=== PATIENT | female | born 2000 | race Caucasian/White ===

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

== ENCOUNTER 2020-01-16 17:03 | Emergency (ER) | payer OTHER ==
[2020-01-16 17:21] VITALS: BP 109/73; PULSE 87; RESP 18; TEMP 98.2
[2020-01-16] MEDS ORDERED: DIPH,PERTUS(ACELL)TETVAC-LF 0.5 ML VIAL IM ONE (17:48)
[2020-01-16] MEDS ORDERED: TOPICAL SKIN ADHESIVE 1 EACH AMP TOPICAL ONE (17:48)
--- NOTE | 2020-01-16 18:10 | ED ---
General Adult HPI - General Chief complaint: Wound/Laceration Stated complaint: R Finger Lac Time Seen by Provider: 01/16/20 17:42 Source: patient, RN notes reviewed Mode of arrival: ambulatory Limitations: no limitations - History of Present Illness Initial comments: 19-year-old female presents emergency Department with chief complaint of finger laceration. Patient states that she cut her finger on a slicer. Patient states she's unsure when her last tetanus was. There is no active bleeding she states that she does not want stitches. Patient denies any decreased range of motion no paresthesias. - Related Data Home Medications Medication Instructions Recorded Confirmed Cariprazine HCl [Vraylar] 1.5 mg PO Q48H 12/09/19 12/09/19 Allergies Allergy/AdvReac Type Severity Reaction Status Date / Time No Known Allergies Allergy Verified 01/16/20 17:22 Review of Systems ROS Statement: Those systems with pertinent positive or pertinent negative responses have been documented in the HPI. ROS Other: All systems not noted in ROS Statement are negative. Past Medical History Past Medical History: No Reported History Additional Past Medical History / Comment(s): ovarian cysts History of Any Multi-Drug Resistant Organisms: None Reported Past Surgical History: No Surgical Hx Reported Past Psychological History: Anxiety, Bipolar, Depression Smoking Status: Vaper Past Alcohol Use History: Occasional Past Drug Use History: None Reported General Exam Limitations: no limitations General appearance: alert, in no apparent distress Head exam: Present: atraumatic, normocephalic, normal inspection Respiratory exam: Present: normal lung sounds bilaterally. Absent: respiratory distress, wheezes, rales, rhonchi, stridor Cardiovascular Exam: Present: regular rate, normal rhythm, normal heart sounds. Absent: systolic murmur, diastolic murmur, rubs, gallop, clicks Extremities exam: Present: other (Right hand second digit there is a 1 cm laceration no active bleeding.) Course Vital Signs 01/16/20 17:18 Temperature 98.2 F Pulse Rate 87 Respiratory 18 Rate Blood Pressure 109/73 O2 Sat by Pulse 100 Oximetry Procedures - Laceration Laceration #1 Consent Obtained: verbal consent Indication: laceration Site: hand (Right) Size (cm): 1 Description: linear Depth: simple, single layer Pre-repair: wound explored, irrigated extensively, deep structures intact Type of Sutures: other (exofin ) Patient Tolerated Procedure: well, no complications Medical Decision Making - Medical Decision Making Patient's wound was closed with Zofran. Patient refused sutures. Patient placed in a finger splint tetanus is updated. Disposition Clinical Impression: Finger laceration Disposition: HOME SELF-CARE Condition: Stable Instructions (If sedation given, give patient instructions): Laceration (ED) Additional Instructions: Please return to the Emergency Department if symptoms worsen or any other concerns. Is patient prescribed a controlled substance at d/c from ED?: No Referrals: Kelly Self DO [Primary Care Provider] - 1-2 days Time of Disposition: 18:09
== END 2020-01-16 18:31 | disposition home or self-care (01) ==
LOC: EC 17:03
DX: S61.214A Laceration without foreign body of right ring finger without damage to nail, initial encounter (principal); F41.9 Anxiety disorder, unspecified; F31.9 Bipolar disorder, unspecified; F17.290 Nicotine dependence, other tobacco product, uncomplicated; Z79.899 Other long term (current) drug therapy; Z23 Encounter for immunization; W27.4XXA Contact with kitchen utensil, initial encounter
CPT/HCPCS: 12001; 90471; 90715; 99282

== ENCOUNTER 2020-01-21 00:58 | Emergency (ER) | payer OTHER ==
[2020-01-21 01:05] VITALS: BP 105/67; PULSE 88; RESP 18; TEMP 98
[2020-01-21] MEDS ORDERED: HYDROCORTISONE 1% CREAM 30 GM TUBE TOPICAL STA (01:11)
[2020-01-21] MEDS ORDERED: predniSONE 50 MG TAB PO STA (01:11)
[2020-01-21] MEDS ORDERED: FAMOTIDINE 20 MG TAB PO STA (01:11)
--- NOTE | 2020-01-21 01:13 | ED ---
Skin/Abscess/FB HPI - General Chief complaint: Skin/Abscess/Foreign Body Stated complaint: Poss allergic reaction Time Seen by Provider: 01/21/20 01:07 Source: patient Mode of arrival: ambulatory Limitations: no limitations - History of Present Illness Initial comments: 19-year-old female patient presents to the emergency department today for evaluation of itchy bumps to the left arm. Patient states that she stayed at her friend's house last night and stepped on the couch. When she woke she had these lesions over the left forearm. The patient states that throughout the day the areas have become much more swollen. States they are itchy. Denies any pain. Denies any fever or chills. Denies any lip, tongue, or throat swelling. Denies taking any medication for her symptoms. Other than a new sleeping location she denies any other new exposures including soaps, lotions, medications, foods, detergents, or clothing. She denies any chance of . - Related Data Home Medications Medication Instructions Recorded Confirmed Cariprazine HCl [Vraylar] 1.5 mg PO Q48H 12/09/19 12/09/19 Previous Rx's Medication Instructions Recorded Famotidine [Pepcid] 20 mg PO DAILY #3 tablet 01/21/20 predniSONE 50 mg PO DAILY #3 tab 01/21/20 Allergies Allergy/AdvReac Type Severity Reaction Status Date / Time No Known Allergies Allergy Verified 01/21/20 01:05 Review of Systems ROS Statement: Those systems with pertinent positive or pertinent negative responses have been documented in the HPI. ROS Other: All systems not noted in ROS Statement are negative. Past Medical History Past Medical History: No Reported History Additional Past Medical History / Comment(s): ovarian cysts History of Any Multi-Drug Resistant Organisms: None Reported Past Surgical History: No Surgical Hx Reported Past Psychological History: Anxiety, Bipolar, Depression Smoking Status: Vaper Past Alcohol Use History: Occasional Past Drug Use History: None Reported General Exam Limitations: no limitations General appearance: alert, in no apparent distress, other (This is a well- developed, well-nourished adult female patient in no acute distress. Vital signs upon presentation are temperature 98.2F, pulse 18, respirations 18, blood pressure 105/67, pulse ox 100% on room air.) ENT exam: Present: normal exam, normal oropharynx, mucous membranes moist Respiratory exam: Present: normal lung sounds bilaterally. Absent: respiratory distress, wheezes, rales, rhonchi, stridor Cardiovascular Exam: Present: regular rate, normal rhythm, normal heart sounds. Absent: systolic murmur, diastolic murmur, rubs, gallop, clicks Extremities exam: Present: full ROM, normal capillary refill, other (There are 3 areas consisting of erythematous wheals with surrounding swelling and erythema. These lesions are in clusters of three. Lesions are non-petechial, nonvesicular. There are no mucosal lesions. These are on the left arm only.). Absent: normal inspection, tenderness, pedal edema, joint swelling, calf tender ness Neurological exam: Present: alert, oriented X3, CN II-XII intact Psychiatric exam: Present: normal affect, normal mood Skin exam: Present: warm, dry, intact, normal color. Absent: rash Course Vital Signs 01/21/20 01:02 Temperature 98 F Pulse Rate 88 Respiratory 18 Rate Blood Pressure 105/67 O2 Sat by Pulse 100 Oximetry Medical Decision Making - Medical Decision Making 19-year-old female patient presents to the emergency department today for evaluation of itchy bumps to the left arm. Physical examination did reveal clusters of erythematous wheals noted over the left upper arm, left forearm, and left hand. These are consistent with bedbug bites. We will treat with steroids and Pepcid due to the inflammatory response. She is also given hydrocortisone cream. She is instructed take Benadryl every 6 hours as needed for symptom relief. She is instructed to apply cool compresses and to follow-up with her primary care physician for recheck in 1-2 days. Return parameters were discussed in detail. She verbalizes understanding and agrees with this plan. Disposition Clinical Impression: Bed bug bite, Allergic reaction Disposition: HOME SELF-CARE Condition: Good Instructions (If sedation given, give patient instructions): Bed Bugs (ED), General Allergic Reaction (ED) Additional Instructions: Use cream to the affected areas twice daily, for no more than 1 week. Take Benadryl every 6 hours as needed. Take other medications as directed. Follow- up through primary care physician for recheck in 1-2 days. Return to the emergency department immediately for any new, worsening, or concerning symptoms. Prescriptions: Famotidine [Pepcid] 20 mg PO DAILY #3 tablet predniSONE 50 mg PO DAILY #3 tab Is patient prescribed a controlled substance at d/c from ED?: No Referrals: Kelly Self DO [Primary Care Provider] - 1-2 days Time of Disposition: 01:13
== END 2020-01-21 01:21 | disposition home or self-care (01) ==
LOC: EC 00:58
DX: T78.40XA Allergy, unspecified, initial encounter (principal); S40.862A Insect bite (nonvenomous) of left upper arm, initial encounter; F41.9 Anxiety disorder, unspecified; F31.9 Bipolar disorder, unspecified; F17.290 Nicotine dependence, other tobacco product, uncomplicated; Z79.899 Other long term (current) drug therapy; W57.XXXA Bitten or stung by nonvenomous insect and other nonvenomous arthropods, initial encounter
CPT/HCPCS: 99283; J7512

== ENCOUNTER 2020-04-12 22:58 | Emergency (ER) | payer OTHER ==
[2020-04-12 23:07] VITALS: RESP 22
[2020-04-13 00:06] LABS: Basophils # (A) 0.1 k/uL (0-0.2); Basophils % (A) 1 %; Eosinophils # (A) 0.2 k/uL (0-0.7); Eosinophils % (A) 2 %; HGB 12.9 gm/dL (11.4-16.0); Lymphocytes # (A) 2.6 k/uL (1.0-4.8); Lymphocytes % (A) 25 %; MCH 31.9 pg (25.0-35.0); MCV 91.1 fL (80.0-100.0); Mean Platelet Volume 7.4; Monocytes # (A) 0.6 k/uL (0-1.0); Monocytes % (A) 6 %; Neutrophils # (A) 6.5 k/uL (1.3-7.7); Neutrophils % (A) 64 %; Platelet Count 271 k/uL (150-450); RBC 4.06 m/uL (3.80-5.40); RDW 12.1 % (11.5-15.5); WBC 10.1 k/uL (4.0-11.0)
[2020-04-13 00:16] LABS: ALT 20 U/L (4-34); AST 20 U/L (14-36); African American GFR (CKD) >90 (>60 ml/min/1.73 sqM); Albumin 3.8 g/dL (3.5-5.0); Alkaline Phosphatase 41 U/L (38-126); Anion Gap 10 mmol/L; Blood Urea Nitrogen 15 mg/dL (7-17); Calcium 9.1 mg/dL (8.4-10.2); Carbon Dioxide 22 mmol/L (22-30); Chloride 104 mmol/L (98-107); Glucose 89 mg/dL (74-99); Non-African American GFR(CKD) >90 (>60 ml/min/1.73 sqM); Potassium 3.8 mmol/L (3.5-5.1); Sodium 136 mmol/L (137-145); Total Bilirubin 0.4 mg/dL (0.2-1.3); Total Protein 6.3 g/dL (6.3-8.2)
[2020-04-13 00:20] LABS: Amorphous Sediment,Urine Occasional /hpf; Appearance,Urine Clear (Clear); Bacteria,Urine Rare /hpf; Bilirubin,Urine Negative (Negative); Blood,Urine Moderate (Negative); Color,Urine Yellow; Glucose,Urine (UA) Negative (Negative); Ketones,Urine Negative (Negative); Leukocyte Esterase,Urine Negative (Negative); Mucus,Urine Rare /hpf; Nitrite,Urine Negative (Negative); PH, Urine 6.5 (5.0-8.0); Protein,Urine Trace (Negative); RBC,Urine 20 /hpf (0-5); Specific Gravity,Urine 1.033 (1.001-1.035); Sperm,Urine Occasional /hpf; Squamous Epithelial Cell,Urine 1 /hpf (0-4); Urobilinogen,Urine <2.0 mg/dL (<2.0); WBC,Urine 3 /hpf (0-5)
--- NOTE | 2020-04-13 00:45 | US ---
EXAM: US First Trimester , Transabdominal and Transvaginal CLINICAL HISTORY: Gravid female with pelvic pain. TECHNIQUE: Real-time transabdominal and transvaginal obstetrical ultrasound of the maternal pelvis and a first trimester with image documentation. Transvaginal imaging was used for better evaluation of the fetus and adnexa. COMPARISON: No previous study. FINDINGS: Gestation: Single viable intrauterine gestation is noted. [place]-rump length measures 2.2 cm corresponding to a gestational age of 8 weeks 6 days. Yolk sac is visualized. heart rate is 169 bpm. Placenta/amniotic fluid: 2.6 and area of subchorionic hemorrhage is noted which should be closely followed. Uterus/cervix: The uterus measures 8.1 x 6.5 x 6.5 cm. Cervix measures approximately 3.8 cm and is closed. No myometrial mass. Ovaries: Right ovary measures 2.7 x 1.5 x 1.7 cm. Left ovary measures 1.8 x 1 x 1 centers. No mass. Free fluid: No free fluid. IMPRESSION: 1. Single viable intrauterine gestation corresponding to a gestational age of 8 weeks 6 days. 2. heart rate is 169 bpm. 3. Subchorionic hemorrhage measuring 2.6 cm which should be closely followed. 4. The cervix is closed.
--- NOTE | 2020-04-13 01:00 | ED ---
General Adult HPI - General Chief complaint: Vaginal Bleeding Stated complaint: poss miscarriage Time Seen by Provider: 04/12/20 23:08 Source: patient, family Mode of arrival: ambulatory Limitations: no limitations - History of Present Illness Initial comments: 19 year-old female patient presents to the emergency department for evaluation of lower abdominal cramping and vaginal bleeding. Patient is 8 weeks 6 days , . States the bleeding started after having sexual intercourse which was approximately 20 minutes prior to arrival. She denies any injury or pain during intercourse. States she did have an ultrasound yesterday at her OBGYN's office and everything looked normal. She has not seen the physician yet. She is reporting mild suprapubic cramping. No back pain. Denies hematuria, dysuria, urinary frequency, urinary urgency. Denies fever or chills. Patient denies any recent rash, cough, shortness of breath, chest pain, numbness, tingling, dizziness, weakness, headache, visual changes, or any other complaints. - Related Data Home Medications Medication Instructions Recorded Confirmed Cariprazine HCl [Vraylar] 1.5 mg PO Q48H 12/09/19 12/09/19 Previous Rx's Medication Instructions Recorded Famotidine [Pepcid] 20 mg PO DAILY #3 tablet 01/21/20 predniSONE 50 mg PO DAILY #3 tab 01/21/20 Cephalexin [Keflex] 500 mg PO Q8H #9 cap 04/13/20 Allergies Allergy/AdvReac Type Severity Reaction Status Date / Time No Known Allergies Allergy Verified 04/12/20 23:07 Review of Systems ROS Statement: Those systems with pertinent positive or pertinent negative responses have been documented in the HPI. ROS Other: All systems not noted in ROS Statement are negative. Past Medical History Past Medical History: No Reported History Additional Past Medical History / Comment(s): ovarian cysts History of Any Multi-Drug Resistant Organisms: None Reported Past Surgical History: No Surgical Hx Reported Past Psychological History: Anxiety, Bipolar, Depression Smoking Status: Vaper Past Alcohol Use History: Occasional Past Drug Use History: None Reported General Exam Limitations: no limitations General appearance: alert, in no apparent distress, other (This is a well-developed, well-nourished adult female patient in no acute distress. Vital signs upon presentation are temperature 98.6F, pulse 103, respirations 22, blood pressure 111/69, pulse ox 100% on room air.) ENT exam: Present: normal exam, normal oropharynx, mucous membranes moist Respiratory exam: Present: normal lung sounds bilaterally. Absent: respiratory distress, wheezes, rales, rhonchi, stridor Cardiovascular Exam: Present: regular rate, normal rhythm, normal heart sounds. Absent: systolic murmur, diastolic murmur, rubs, gallop, clicks GI/Abdominal exam: Present: soft, normal bowel sounds. Absent: distended, tenderness, guarding, rebound, rigid External exam: Present: normal external exam Speculum exam: Present: vaginal bleeding (mild vaginal bleeding, light pink in color. ), other (Cervical os is closed) By manual exam: Present: normal by manual exam Neurological exam: Present: alert, oriented X3, CN II-XII intact Psychiatric exam: Present: normal affect, normal mood Skin exam: Present: warm, dry, intact, normal color. Absent: rash Course Vital Signs 04/12/20 23:02 Temperature 98.6 F Pulse Rate 103 H Respiratory 22 Rate Blood Pressure 111/69 O2 Sat by Pulse 100 Oximetry Medical Decision Making - Medical Decision Making 19-year-old female patient presents to the emergency department today for evaluation of suprapubic abdominal cramping and vaginal bleeding. Symptoms started shortly after sexual intercourse. She has 8 weeks 6 days , . Physical examination did reveal soft nontender abdomen. Pelvic examination did reveal mild bleeding, light pink in color. The cervical os is closed. Labs reviewed, hCG is pending ultrasound is obtained, shows viable intrauterine gestation corresponding to gestational age of 8 weeks 6 days with a heart rate of 169. There is a subchorionic hemorrhage measuring 2.6 cm. Cervix closed. Urine did show small amount of bacteria, Keflex was sent to her [facility]. Patient will be discharged with lab slip for repeat hCG in 2 days. She is instructed to call her UNION CONTRACT REPRESENTATIVE first thing in the morning to inform her of symptoms. She is educated regarding signs and symptoms of miscarriage as well as subchorionic hemorrhage. Return parameters were discussed in detail. She verbalizes understanding and agrees with this plan. - Lab Data Result diagrams: 04/12/20 00:00 04/12/20 00:00 Lab Results 04/12/20 04/12/20 04/12/20 Range/Units 00:00 00:00 00:00 WBC 10.1 (4.0-11.0) k/uL RBC 4.06 (3.80-5.40) m/uL Hgb 12.9 (11.4-16.0) gm/dL Hct 37.0 (34.0-46.0) % MCV 91.1 (80.0-100.0) fL MCH 31.9 (25.0-35.0) pg MCHC 35.0 (31.0-37.0) g/dL RDW 12.1 (11.5-15.5) % Plt Count 271 (150-450) k/uL MPV 7.4 Neutrophils % 64 % Lymphocytes % 25 % Monocytes % 6 % Eosinophils % 2 % Basophils % 1 % Neutrophils # 6.5 (1.3-7.7) k/uL Lymphocytes # 2.6 (1.0-4.8) k/uL Monocytes # 0.6 (0-1.0) k/uL Eosinophils # 0.2 (0-0.7) k/uL Basophils # 0.1 (0-0.2) k/uL Sodium 136 L (137-145) mmol/L Potassium 3.8 (3.5-5.1) mmol/L Chloride 104 (98-107) mmol/L Carbon Dioxide 22 (22-30) mmol/L Anion Gap 10 mmol/L BUN 15 (7-17) mg/dL Creatinine 0.54 (0.52-1.04) mg/dL Est GFR (CKD-EPI)AfAm >90 (>60 ml/min/1.73 sqM) Est GFR (CKD-EPI)NonAf >90 (>60 ml/min/1.73 sqM) Glucose 89 (74-99) mg/dL Calcium 9.1 (8.4-10.2) mg/dL Total Bilirubin 0.4 (0.2-1.3) mg/dL AST 20 (14-36) U/L ALT 20 (4-34) U/L Alkaline Phosphatase 41 (38-126) U/L Total Protein 6.3 (6.3-8.2) g/dL Albumin 3.8 (3.5-5.0) g/dL Urine Color Yellow Urine Appearance Clear (Clear) Urine pH 6.5 (5.0-8.0) Ur Specific [place] 1.033 (1.001-1.035) Urine Protein Trace H (Negative) Urine Glucose (UA) Negative (Negative) Urine Ketones Negative (Negative) Urine Blood Moderate H (Negative) Urine Nitrite Negative (Negative) Urine Bilirubin Negative (Negative) Urine Urobilinogen <2.0 (<2.0) mg/dL Ur Leukocyte Esterase Negative (Negative) Urine RBC 20 H (0-5) /hpf Urine WBC 3 (0-5) /hpf Ur Squamous Epith Cells 1 (0-4) /hpf Amorphous Sediment Occasional H (None) /hpf Urine Bacteria Rare H (None) /hpf Urine Mucus Rare H (None) /hpf Urine Sperm Occasional H (None) /hpf Blood Type Blood Type Recheck Bld Type Recheck Status 04/12/20 Range/Units 00:00 WBC (4.0-11.0) k/uL RBC (3.80-5.40) m/uL Hgb (11.4-16.0) gm/dL Hct (34.0-46.0) % MCV (80.0-100.0) fL MCH (25.0-35.0) pg MCHC (31.0-37.0) g/dL RDW (11.5-15.5) % Plt Count (150-450) k/uL MPV Neutrophils % % Lymphocytes % % Monocytes % % Eosinophils % % Basophils % % Neutrophils # (1.3-7.7) k/uL Lymphocytes # (1.0-4.8) k/uL Monocytes # (0-1.0) k/uL Eosinophils # (0-0.7) k/uL Basophils # (0-0.2) k/uL Sodium (137-145) mmol/L Potassium (3.5-5.1) mmol/L Chloride (98-107) mmol/L Carbon Dioxide (22-30) mmol/L Anion Gap mmol/L BUN (7-17) mg/dL Creatinine (0.52-1.04) mg/dL Est GFR (CKD-EPI)AfAm (>60 ml/min/1.73 sqM) Est GFR (CKD-EPI)NonAf (>60 ml/min/1.73 sqM) Glucose (74-99) mg/dL Calcium (8.4-10.2) mg/dL Total Bilirubin (0.2-1.3) mg/dL AST (14-36) U/L ALT (4-34) U/L Alkaline Phosphatase (38-126) U/L Total Protein (6.3-8.2) g/dL Albumin (3.5-5.0) g/dL Urine Color Urine Appearance (Clear) Urine pH (5.0-8.0) Ur Specific [place] (1.001-1.035) Urine Protein (Negative) Urine Glucose (UA) (Negative) Urine Ketones (Negative) Urine Blood (Negative) Urine Nitrite (Negative) Urine Bilirubin (Negative) Urine Urobilinogen (<2.0) mg/dL Ur Leukocyte Esterase (Negative) Urine RBC (0-5) /hpf Urine WBC (0-5) /hpf Ur Squamous Epith Cells (0-4) /hpf Amorphous Sediment (None) /hpf Urine Bacteria (None) /hpf Urine Mucus (None) /hpf Urine Sperm (None) /hpf Blood Type O Positive Blood Type Recheck No Previous Record Bld Type Recheck Status [facility] ONLY - Radiology Data Radiology results: report reviewed, image reviewed Ultrasound obtained. Report was reviewed in its entirety. Impression by Dr. Pritchett shows single viable intrauterine gestation corresponding to a gestational age of 8 weeks 6 days. heart rate is 169. Subchorionic hemorrhage measuring 2.6 cm which could be closely followed. Cervix is closed. Disposition Clinical Impression: Threatened miscarriage, Subchorionic hemorrhage Disposition: HOME SELF-CARE Condition: Good Instructions (If sedation given, give patient instructions): Threatened Miscarriage (ED), Subchorionic Hemorrhage (ED) Additional Instructions: Have repeat hormone level drawn in 2 days, return to the hospital to have the lab drawn. Call your UNION CONTRACT REPRESENTATIVE first thing in the morning for further instructions. Maintain pelvic rest until cleared by her UNION CONTRACT REPRESENTATIVE. Return to the emergency department for any new, worsening, or concerning symptoms. Is patient prescribed a controlled substance at d/c from ED?: No Referrals: Kelly Self DO [Primary Care Provider] - 1-2 days Constanza Ambrose DO [Doctor of Osteopathic Medicine] - 1-2 days Time of Disposition: 01:12
[2020-04-13 01:45] VITALS: BP 114/77; PULSE 81; TEMP 98.3
== END 2020-04-13 01:16 | disposition home or self-care (01) ==
LOC: EC 22:58
DX: O20.0 Threatened abortion (principal); F31.9 Bipolar disorder, unspecified; F17.290 Nicotine dependence, other tobacco product, uncomplicated; Z79.899 Other long term (current) drug therapy; Z3A.08 8 weeks gestation of pregnancy
CPT/HCPCS: 36415; 76801; 80053; 81001; 84702; 85025; 86900; 86901; 99284

== ENCOUNTER → 2020-04-15 | Outpatient (CLI) | payer OTHER | END | disposition home or self-care (01) | LOC: LABMAIN 11:53 | PROVIDERS: ATTEND Family Medicine | DX: O26.859 Spotting complicating pregnancy, unspecified trimester (principal); Z3A.00 Weeks of gestation of pregnancy not specified | CPT/HCPCS: 36415; 84702 ==

== ENCOUNTER 2020-04-16 17:01 | Emergency (ER) | payer OTHER ==
[2020-04-16 17:05] VITALS: BP 108/74; PULSE 90; RESP 17; TEMP 98.4
--- NOTE | 2020-04-16 17:24 | ED ---
Female Urogenital HPI - General Chief complaint: Vaginal Bleeding Stated complaint: 9 wks preg, spotting Time Seen by Provider: 04/16/20 17:07 Source: patient Mode of arrival: ambulatory Limitations: no limitations - History of Present Illness Initial comments: 19-year-old female currently 9 weeks presenting for recheck vaginal bleeding. Patient states she was here roughly 2-3 days ago and she states she had some light vaginal bleeding. She was told she has subchorionic hemorrhage patient states she did that she is worried about the now. She states she has had some light cramping and some bleeding after. She states today that has been mellitus. Patient denies any severe pain nausea vomiting diarrhea fevers.denies vaginal discharge denies any vaginal itching or urinary symptoms. Patient denies additional complaints Upon arrival patient appears well nontoxic in no acute distress. Last Menstrual Period: 02/13/21 - Related Data Home Medications Medication Instructions Recorded Confirmed Cariprazine HCl [Vraylar] 1.5 mg PO Q48H 12/09/19 12/09/19 Previous Rx's Medication Instructions Recorded Famotidine [Pepcid] 20 mg PO DAILY #3 tablet 01/21/20 predniSONE 50 mg PO DAILY #3 tab 01/21/20 Cephalexin [Keflex] 500 mg PO Q8H #9 cap 04/13/20 Cephalexin [Keflex] 500 mg PO Q8HR 5 Days #15 cap 04/16/20 Allergies Allergy/AdvReac Type Severity Reaction Status Date / Time No Known Allergies Allergy Verified 04/16/20 17:05 Review of Systems ROS Statement: Those systems with pertinent positive or pertinent negative responses have been documented in the HPI. ROS Other: All systems not noted in ROS Statement are negative. Past Medical History Past Medical History: No Reported History Additional Past Medical History / Comment(s): ovarian cysts History of Any Multi-Drug Resistant Organisms: None Reported Past Surgical History: No Surgical Hx Reported Past Psychological History: Anxiety, Bipolar, Depression Smoking Status: Vaper Past Alcohol Use History: Occasional Past Drug Use History: None Reported General Exam - General Exam Comments Initial Comments: General: The patient is awake and alert, in no distress, and does not appear acutely ill. Eye: Pupils are equal, round and reactive to light, extra-ocular movements are intact. No nystagmus. There is normal conjunctiva bilaterally. No signs of icterus. Ears, nose, mouth and throat: There are moist mucous membranes and no oral lesions. Neck: The neck is supple, there is no tenderness or JVD. Cardiovascular: There is a regular rate and rhythm. No murmur, rub or gallop is appreciated. Respiratory: Lungs are clear to auscultation, respirations are non-labored, breath sounds are equal. No wheezes, stridor, rales, or rhonchi. Gastrointestinal: Soft, non-distended, non-tender abdomen without masses or organomegaly noted. There is no rebound or guarding present. : os closed. scant discharge in vault, no odors, no blood, no adnexal or cervical motion tenderness Musculoskeletal: Normal ROM, no tenderness. Strength 5/5. Sensation intact. Pulses equal bilaterally 2+. Neurological: A&O x 3. CN II-XII intact, There are no obvious motor or sensory deficits. Coordination appears grossly intact. Speech is normal. Skin: Skin is warm and dry and no rashes or lesions are noted. Psychiatric: Cooperative, appropriate mood & affect, normal judgment. Limitations: no limitations Course Vital Signs 04/16/20 17:03 Temperature 98.4 F Pulse Rate 90 Respiratory 17 Rate Blood Pressure 108/74 O2 Sat by Pulse 100 Oximetry Medical Decision Making - Medical Decision Making Bedside ultrasound fetus is moving, cardiac motion is appreciated. Pt has no pain on abdominal or pelvic exam. she states she just wanted to check on baby. she states at 11 weeks she can see her OBGYN DrSaud Ambrose. No bleeding on exam. Bacteria in urine--will treat despite being asymptomatic. vaginal swabs pending. patient O+ on chart review. Pt case discussed with Dr. Alamo who is agreeable to discharge. - Lab Data Lab Results 04/16/20 04/16/20 Range/Units 17:27 17:27 Urine Color Light Yellow Urine Appearance Cloudy H (Clear) Urine pH 8.0 (5.0-8.0) Ur Specific [place] 1.023 (1.001-1.035) Urine Protein Negative (Negative) Urine Glucose (UA) Negative (Negative) Urine Ketones Negative (Negative) Urine Blood Negative (Negative) Urine Nitrite Negative (Negative) Urine Bilirubin Negative (Negative) Urine Urobilinogen <2.0 (<2.0) mg/dL Ur Leukocyte Esterase Negative (Negative) Urine WBC 2 (0-5) /hpf Ur Squamous Epith Cells 3 (0-4) /hpf Amorphous Sediment Rare H (None) /hpf Urine Bacteria Rare H (None) /hpf Urine Mucus Rare H (None) /hpf Trichomonas Ag (Rapid) Negative (Negative) Disposition Clinical Impression: 9 weeks gestation of , Vaginal discharge Disposition: HOME SELF-CARE Condition: Good Instructions (If sedation given, give patient instructions): Subchorionic Hemorrhage (ED) Additional Instructions: Please use medication as discussed. Please follow-up with OBGYN in next week. Please return to emergency room if the symptoms increase or worsen or for any other concerns. Prescriptions: Cephalexin [Keflex] 500 mg PO Q8HR 5 Days #15 cap Is patient prescribed a controlled substance at d/c from ED?: No Referrals: Kelly Self DO [Primary Care Provider] - 1-2 days Constanza Ambrose DO [Doctor of Osteopathic Medicine] - 1-2 days Time of Disposition: 17:24
[2020-04-16 17:46] LABS: Amorphous Sediment,Urine Rare /hpf; Appearance,Urine Cloudy (Clear); Bacteria,Urine Rare /hpf; Bilirubin,Urine Negative (Negative); Blood,Urine Negative (Negative); Color,Urine Light Yellow; Glucose,Urine (UA) Negative (Negative); Ketones,Urine Negative (Negative); Leukocyte Esterase,Urine Negative (Negative); Mucus,Urine Rare /hpf; Nitrite,Urine Negative (Negative); Protein,Urine Negative (Negative); Specific Gravity,Urine 1.023 (1.001-1.035); Squamous Epithelial Cell,Urine 3 /hpf (0-4); Urobilinogen,Urine <2.0 mg/dL (<2.0); WBC,Urine 2 /hpf (0-5)
[2020-04-17 14:55] LABS: C. trachomatis,PCR Negative (Neg,Equiv); Chlamydia trachomatis Source Vagina; N. gonorrhoeae,PCR Negative (Neg,Equiv); Neisseria Source Vagina
== END 2020-04-16 17:40 | disposition home or self-care (01) ==
LOC: EC 17:01
DX: O46.91 Antepartum hemorrhage, unspecified, first trimester (principal); O99.341 Other mental disorders complicating pregnancy, first trimester; F41.9 Anxiety disorder, unspecified; F31.9 Bipolar disorder, unspecified; O99.331 Smoking (tobacco) complicating pregnancy, first trimester; Z79.899 Other long term (current) drug therapy; F17.290 Nicotine dependence, other tobacco product, uncomplicated; Z3A.09 9 weeks gestation of pregnancy
CPT/HCPCS: 81001; 87070; 87491; 87591; 87808; 99284

== ENCOUNTER 2020-06-20 10:15 | Emergency (ER) | payer OTHER ==
[2020-06-20 11:37] VITALS: RESP 18
[2020-06-20 12:55] LABS: Basophils % (A) 0 %; Eosinophils # (A) 0.1 k/uL (0-0.7); Eosinophils % (A) 1 %; HCT 34.3 % (34.0-46.0); HGB 12.2 gm/dL (11.4-16.0); Lymphocytes # (A) 1.8 k/uL (1.0-4.8); Lymphocytes % (A) 19 %; MCHC 35.6 g/dL (31.0-37.0); MCV 92.6 fL (80.0-100.0); Mean Platelet Volume 8.3; Monocytes # (A) 0.4 k/uL (0-1.0); Monocytes % (A) 4 %; Neutrophils # (A) 6.8 k/uL (1.3-7.7); Neutrophils % (A) 74 %; Platelet Count 249 k/uL (150-450); RDW 12.9 % (11.5-15.5); WBC 9.2 k/uL (4.0-11.0)
--- NOTE | 2020-06-20 13:05 | ED ---
Female Urogenital HPI - General Source: patient Mode of arrival: ambulatory Limitations: no limitations - History of Present Illness Last Menstrual Period: 03/11/20 <Karolina Jain - Last Filed: 06/21/20 19:06> <Mandie Vega - Last Filed: 06/22/20 11:58> - General Chief complaint: Vaginal Bleeding Stated complaint: 18 Wks preg bleeding Time Seen by Provider: 06/20/20 11:44 - History of Present Illness Initial comments: Patient is a 19-year-old female, presenting to the emergency Department with complaints of vaginal bleeding that happened today. Patient is currently 18 weeks , , first , ENROLLMENT SPECIALIST is Dr. Ambrose. Patient states she went to the bathroom this morning and when she wiped she noticed bright red blood on the toilet paper. This is not continuous, and has not happened again. Patient is also having some mild lower abdominal cramping. She states she has started to feel the baby move this week. She denies any fevers or chills, no chest pain or shortness of breath. She states that her sister and mother both have had late-term miscarriages and is very concerned. She has no further complaints at this time. Upon arrival to the ER, her vitals are stable. (Karolina Jain) - Related Data Home Medications Medication Instructions Recorded Confirmed No Known Home Medications 06/20/20 06/20/20 Allergies Allergy/AdvReac Type Severity Reaction Status Date / Time No Known Allergies Allergy Verified 06/20/20 12:30 Review of Systems ROS Other: All systems not noted in ROS Statement are negative. <Karolina Jain - Last Filed: 06/21/20 19:06> ROS Other: All systems not noted in ROS Statement are negative. <Mandie Vega - Last Filed: 06/22/20 11:58> ROS Statement: Those systems with pertinent positive or pertinent negative responses have been documented in the HPI. Past Medical History Past Medical History: No Reported History Additional Past Medical History / Comment(s): ovarian cysts History of Any Multi-Drug Resistant Organisms: None Reported Past Surgical History: No Surgical Hx Reported Past Psychological History: Anxiety, Bipolar, Depression Smoking Status: Vaper Past Alcohol Use History: Occasional Past Drug Use History: None Reported <Karolina Jain - Last Filed: 06/21/20 19:06> General Exam Limitations: no limitations External exam: Present: normal external exam Speculum exam: Present: normal speculum exam. Absent: cervical discharge, vaginal bleeding, foreign body By manual exam: Present: normal by manual exam <Karolina Jain - Last Filed: 06/21/20 19:06> - General Exam Comments Initial Comments: GENERAL: Patient is well-developed and well-nourished. Patient is nontoxic and in no acute distress. HEAD: Atraumatic, normocephalic. EYES: Pupils equal round and reactive to light, extraocular movements intact, sclera anicteric, conjunctiva are normal. Eyelids were unremarkable. ENT: TMs normal, nares patent, oropharynx clear without exudates. Moist mucous membranes. NECK: Normal range of motion, supple without lymphadenopathy or JVD. LUNGS: Unlabored respirations. Breath sounds clear to auscultation bilaterally and equal. No wheezes rales or rhonchi. HEART: Regular rate and rhythm without murmurs, rubs or gallops. ABDOMEN: Soft, nontender, normoactive bowel sounds. No guarding, no rebound. No masses appreciated. MUSCULOSKELETAL: Normal extremities with adequate strength and normal range of motion, no pitting or edema. No clubbing or cyanosis. NEUROLOGICAL: Patient is alert and oriented x 3. Motor and sensory are also intact. Cranial nerves II through XII grossly intact. Symmetrical smile. Normal speech, normal gait. PSYCH: Normal mood, normal affect. SKIN: Warm, Dry, normal turgor, no rashes or lesions noted. (Karolina Jain) Course Vital Signs 06/20/20 06/20/20 11:32 14:16 Temperature 97.9 F 98.2 F Pulse Rate 77 79 Respiratory 18 18 Rate Blood Pressure 92/57 126/82 O2 Sat by Pulse 100 100 Oximetry Medical Decision Making - Lab Data Result diagrams: 06/20/20 12:14 06/20/20 12:14 <Karolina Jain - Last Filed: 06/21/20 19:06> - Lab Data Result diagrams: 06/20/20 12:14 06/20/20 12:14 <Mandie Vega - Last Filed: 06/22/20 11:58> - Medical Decision Making Patient is a 19-year-old female, currently 18 weeks , complaining of va ginal bleeding today as well as some mild lower abdominal cramping. This is her first , ENROLLMENT SPECIALIST is Dr. Ambrose. Her vital signs are stable. Labs are unremarkable, urine is normal. Ultrasound shows a single viable IUP measuring 18 weeks, 3 days, normal heart rate of 153. No abnormalities are seen at this time. I discussed these findings with the patient. Patient is stable for discharge. She'll follow up with her ENROLLMENT SPECIALIST. Return parameters were discussed with the patient she verbalized understanding. Case discussed with Dr. Vega. (Karolina Jain) I was available for consultation in the emergency department. The history and physical exam were done by the midlevel provider. I was consulted for this patients care. I reviewed the case with the midlevel provider and based on their presentation of the patient, I agree with the assessment, medical decision making and plan of care as documented. Chart was dictated using [employer] dictation software. Attempts were made to correct any dictation errors however some typographical errors may persist. Patient was seen during a national state of emergency due to the Covid-19 pandemic. (Mandie Vega) - Lab Data Lab Results 06/20/20 06/20/20 06/20/20 Range/Units 12:14 12:14 12:14 WBC 9.2 (4.0-11.0) k/uL RBC 3.70 L (3.80-5.40) m/uL Hgb 12.2 (11.4-16.0) gm/dL Hct 34.3 (34.0-46.0) % MCV 92.6 (80.0-100.0) fL MCH 33.0 (25.0-35.0) pg MCHC 35.6 (31.0-37.0) g/dL RDW 12.9 (11.5-15.5) % Plt Count 249 (150-450) k/uL MPV 8.3 Neutrophils % 74 % Lymphocytes % 19 % Monocytes % 4 % Eosinophils % 1 % Basophils % 0 % Neutrophils # 6.8 (1.3-7.7) k/uL Lymphocytes # 1.8 (1.0-4.8) k/uL Monocytes # 0.4 (0-1.0) k/uL Eosinophils # 0.1 (0-0.7) k/uL Basophils # 0.0 (0-0.2) k/uL Sodium 136 L (137-145) mmol/L Potassium 4.0 (3.5-5.1) mmol/L Chloride 105 (98-107) mmol/L Carbon Dioxide 24 (22-30) mmol/L Anion Gap 7 mmol/L BUN 10 (7-17) mg/dL Creatinine 0.47 L (0.52-1.04) mg/dL Est GFR (CKD-EPI)AfAm >90 (>60 ml/min/1.73 sqM) Est GFR (CKD-EPI)NonAf >90 (>60 ml/min/1.73 sqM) Glucose 79 (74-99) mg/dL Calcium 8.8 (8.4-10.2) mg/dL Total Bilirubin 0.5 (0.2-1.3) mg/dL AST 23 (14-36) U/L ALT 11 (4-34) U/L Alkaline Phosphatase 52 (38-126) U/L Total Protein 6.4 (6.3-8.2) g/dL Albumin 3.7 (3.5-5.0) g/dL Urine Color Yellow Urine Appearance Clear (Clear) Urine pH 7.0 (5.0-8.0) Ur Specific [place] 1.027 (1.001-1.035) Urine Protein Trace H (Negative) Urine Glucose (UA) Negative (Negative) Urine Ketones Negative (Negative) Urine Blood Negative (Negative) Urine Nitrite Negative (Negative) Urine Bilirubin Negative (Negative) Urine Urobilinogen 2.0 (<2.0) mg/dL Ur Leukocyte Esterase Trace H (Negative) Urine RBC <1 (0-5) /hpf Urine WBC 1 (0-5) /hpf Ur Squamous Epith Cells 3 (0-4) /hpf Urine Bacteria Rare H (None) /hpf Urine Mucus Few H (None) /hpf Blood Type Blood Type Recheck Bld Type Recheck Status 06/20/20 Range/Units 12:14 WBC (4.0-11.0) k/uL RBC (3.80-5.40) m/uL Hgb (11.4-16.0) gm/dL Hct (34.0-46.0) % MCV (80.0-100.0) fL MCH (25.0-35.0) pg MCHC (31.0-37.0) g/dL RDW (11.5-15.5) % Plt Count (150-450) k/uL MPV Neutrophils % % Lymphocytes % % Monocytes % % Eosinophils % % Basophils % % Neutrophils # (1.3-7.7) k/uL Lymphocytes # (1.0-4.8) k/uL Monocytes # (0-1.0) k/uL Eosinophils # (0-0.7) k/uL Basophils # (0-0.2) k/uL Sodium (137-145) mmol/L Potassium (3.5-5.1) mmol/L Chloride (98-107) mmol/L Carbon Dioxide (22-30) mmol/L Anion Gap mmol/L BUN (7-17) mg/dL Creatinine (0.52-1.04) mg/dL Est GFR (CKD-EPI)AfAm (>60 ml/min/1.73 sqM) Est GFR (CKD-EPI)NonAf (>60 ml/min/1.73 sqM) Glucose (74-99) mg/dL Calcium (8.4-10.2) mg/dL Total Bilirubin (0.2-1.3) mg/dL AST (14-36) U/L ALT (4-34) U/L Alkaline Phosphatase (38-126) U/L Total Protein (6.3-8.2) g/dL Albumin (3.5-5.0) g/dL Urine Color Urine Appearance (Clear) Urine pH (5.0-8.0) Ur Specific [place] (1.001-1.035) Urine Protein (Negative) Urine Glucose (UA) (Negative) Urine Ketones (Negative) Urine Blood (Negative) Urine Nitrite (Negative) Urine Bilirubin (Negative) Urine Urobilinogen (<2.0) mg/dL Ur Leukocyte Esterase (Negative) Urine RBC (0-5) /hpf Urine WBC (0-5) /hpf Ur Squamous Epith Cells (0-4) /hpf Urine Bacteria (None) /hpf Urine Mucus (None) /hpf Blood Type O Positive Blood Type Recheck O Pos Bld Type Recheck Status No Disposition Is patient prescribed a controlled substance at d/c from ED?: No Time of Disposition: 14:01 <Karolina Jain - Last Filed: 06/21/20 19:06> <Mandie Vega - Last Filed: 06/22/20 11:58> Clinical Impression: Vaginal bleeding during Disposition: HOME SELF-CARE Condition: Stable Instructions (If sedation given, give patient instructions): Dysfunctional Uterine Bleeding (ED) Additional Instructions: Please return to the Emergency Department if symptoms worsen or any other concerns. These follow-up with your ENROLLMENT SPECIALIST as discussed. Referrals: Kelly Self DO [Primary Care Provider] - 1-2 days
--- NOTE | 2020-06-20 13:09 | US ---
EXAMINATION TYPE: US OB >= 14 wk fetus DATE OF EXAM: 06/20/2020 COMPARISON: 04/13/2020 CLINICAL HISTORY: bleeding, cramping Bleeding/cramping TECHNIQUE: Transabdominal (TA) GESTATIONAL AGE / DATING Physician Established: (18 weeks/5 days) EDC: 11/16/2020 Dates by Current Scan: (18 weeks/3 days) EDC: 11/18/2020 Beta HCG (if available): Not available at this time SURVEY IUP: Single PLACENTA: Posterior PREVIA: No Previa BRITTANIE: 14.6 cm Normal CERVICAL LENGTH (transabdominal: norm > 3.0cm): 3.2 cm BIOMETRY PRESENTATION: Vertex LIE: Longitudinal BPD: 4.3 cm 18 weeks / 6 days HC: 15.9 cm 18 weeks / 5 days AC: 13.0 cm 18 weeks / 4 days FL: 2.7 cm 18 weeks / 1 days ESTIMATED WEIGHT IN GRAMS: 239.4 grams ESTIMATED WEIGHT IN LBS/OZ: 0 lbs. 8 oz. WEIGHT PERCENTAGE BASED ON ESTABLISHED DATES: 28.9% HC/AC: 1.2 Normal FL/AC: 20.5 HEART RATE: 153 bpm RHYTHM: Normal Single viable IUP measuring 18 weeks 3 day. IMPRESSION: Limited exam demonstrates viable intrauterine 18 weeks 3 days with a heart rate of 153 bpm.
[2020-06-20 13:17] LABS: ALT 11 U/L (4-34); AST 23 U/L (14-36); African American GFR (CKD) >90 (>60 ml/min/1.73 sqM); Albumin 3.7 g/dL (3.5-5.0); Alkaline Phosphatase 52 U/L (38-126); Anion Gap 7 mmol/L; Blood Urea Nitrogen 10 mg/dL (7-17); Calcium 8.8 mg/dL (8.4-10.2); Carbon Dioxide 24 mmol/L (22-30); Chloride 105 mmol/L (98-107); Glucose 79 mg/dL (74-99); Non-African American GFR(CKD) >90 (>60 ml/min/1.73 sqM); Sodium 136 mmol/L (137-145); Total Bilirubin 0.5 mg/dL (0.2-1.3); Total Protein 6.4 g/dL (6.3-8.2)
[2020-06-20 13:18] LABS: Appearance,Urine Clear (Clear); Bilirubin,Urine Negative (Negative); Blood,Urine Negative (Negative); Color,Urine Yellow; Glucose,Urine (UA) Negative (Negative); Ketones,Urine Negative (Negative); Leukocyte Esterase,Urine Trace (Negative); Nitrite,Urine Negative (Negative); Protein,Urine Trace (Negative); Specific Gravity,Urine 1.027 (1.001-1.035)
[2020-06-20 13:19] LABS: Bacteria,Urine Rare /hpf; Mucus,Urine Few /hpf; RBC,Urine <1 /hpf (0-5); Squamous Epithelial Cell,Urine 3 /hpf (0-4); WBC,Urine 1 /hpf (0-5)
[2020-06-20 14:17] VITALS: BP 126/82; PULSE 79; TEMP 98.2
== END 2020-06-20 14:17 | disposition home or self-care (01) ==
LOC: EC 10:15
DX: O46.92 Antepartum hemorrhage, unspecified, second trimester (principal); O99.342 Other mental disorders complicating pregnancy, second trimester; O99.332 Smoking (tobacco) complicating pregnancy, second trimester; F32.9 Major depressive disorder, single episode, unspecified; F41.9 Anxiety disorder, unspecified; F17.290 Nicotine dependence, other tobacco product, uncomplicated; Z3A.18 18 weeks gestation of pregnancy
CPT/HCPCS: 36415; 76805; 80053; 81001; 85025; 86900; 86901; 99284

== ENCOUNTER 2020-07-07 23:50 | Outpatient (CLI) | payer OTHER ==
[2020-07-08 01:04] VITALS: BP 115/70; PULSE 96; RESP 16; TEMP 97.1
--- NOTE | 2020-08-06 07:44 | P.MSEPDOC ---
Presenting Problems - Arrival Data Date of Arrival on Unit: 07/08/20 Time of Arrival on Unit: 23:50 Mode of Transport: Ambulatory - Complaint OB-Reason for Admission/Chief Complaint: Other Comment: Patient presents to triage for abdominal pain, nausea, and vommiting. Patient. states that pain began around 2200 and has vommited 3 times since then. Patient states. that she hasnt ate anything out of the normal today. Patient tested for covid after. recent exposure and results came back negative yesterday. Medical History - Information : 1 Para: 0 Term: 0 : 0 Abortions: Spontaneous or Elective: 0 Number of Living Children: 0 - Gestational Age Gestational Age by LEROY (wks/days): 21 Weeks and 3 Days Review of Systems - Review of Systems Constitutional: No problems Breast: No problems ENT: No problems Cardiovascular: No problems Respiratory: No problems Gastrointestinal: No problems Genitourinary: No problems Musculoskeletal: No problems Neurological: No problems Skin: No problems Vital Signs - Temperature Temperature: 97.1 F Temperature Source: Temporal Artery Scan - Pulse Right Brachial Pulse Rate: 96 Pulse Assessment Method: Automatic Cuff - Respirations Respiratory Rate: 16 Oxygen Delivery Method: Room Air - Blood Pressure Right Arm Blood Pressure: 115/70 Blood Pressure Mean: 85 Blood Pressure Source: Automatic Cuff Medical Screen Scoring (Pre) - Cervical Exam Dilation: Exam Deferred Effacement: Exam Deferred Membranes: Intact - Uterine Contractions Frequency: N/A Duration: N/A Intensity: N/A - Maternal Vital Signs Maternal Temperature: N/A Maternal Blood Pressure: N/A Signs of Preeclampsia: N/A Maternal Respirations: N/A - Maternal Trauma Maternal Trauma: N/A - Assessment - Baby A Baseline FHR: 150 Heart Rate - NICHD Category: Category I (Normal) = 0 Position: N/A Station: N/A - Total Score - Baby A Total Score - Baby A: 0 - Total Score - Baby B Total Score - Baby B: 0 - Total Score - Baby C Total Score - Baby C: 0 - Level of Risk - Baby A Level of Risk - Baby A: Low (0-5) - Level of Risk - Baby B Level of Risk - Baby B: Low (0-5) - Level of Risk - Baby C Level of Risk - Baby C: Low (0-5) Physician Notification (Pre) - Physician Notified Physician Notified Date: 07/08/20 Physician Notified Time: 00:21 New Order Received: Yes - Notification Comment Comment: report given to Dr. Donald. Patient presents with medial abdominal pain rated at. a 4/10, nausea, and vommiting that all began at 2200 on 07/07/2020. Vitals are WNL. . Heart tones 150 bpm. No contraction per toco and abdomen is soft non-tender. No changes. in diet. Patinet negative for covid related to recent exposure. Patient to orally. hydrate, if tolerated well, discharge home. Patient to call office 07/09/2020 to follow. up with Dr. Ambrose. Disposition - Disposition OB Disposition: Physician follow up in office, Discharge to home Discharge Date: 07/08/20 Discharge Time: 00:44 I agree with the RN Medical Screening Exam: Yes Case reviewed; plan agreed upon as documented in EMR&OBIX.: Yes Comments: Patient is neither seen nor examined by me Diagnosis: LATE VOMITING OF
== END 2020-07-08 00:44 ==
LOC: FBPOP 23:50
PROVIDERS: ATTEND Obstetrics & Gynecology
DX: O21.2 Late vomiting of pregnancy (principal); Z3A.21 21 weeks gestation of pregnancy
CPT/HCPCS: 99213

== ENCOUNTER 2020-07-29 19:03 | Outpatient (CLI) | payer OTHER ==
[2020-07-29 21:00] VITALS: BP 108/74; PULSE 104; RESP 18; TEMP 98.4
--- NOTE | 2020-08-06 07:49 | P.MSEPDOC ---
Presenting Problems - Arrival Data Date of Arrival on Unit: 07/29/20 Time of Arrival on Unit: 19:03 Mode of Transport: Ambulatory - Complaint OB-Reason for Admission/Chief Complaint: Possible Onset of Labor Comment: ney linda and cramping intermittently x3days Medical History - Information : 1 Para: 0 Term: 0 : 0 Abortions: Spontaneous or Elective: 0 Number of Living Children: 0 - Gestational Age Gestational Age by LEROY (wks/days): 24 Weeks and 2 Days Review of Systems - Review of Systems Constitutional: No problems Breast: No problems ENT: No problems Cardiovascular: No problems Respiratory: No problems Gastrointestinal: No problems Genitourinary: No problems Musculoskeletal: No problems Neurological: No problems Skin: No problems Vital Signs - Temperature Temperature: 98.4 F - Pulse Pulse Oximetery Pulse Rate: 104 Pulse Assessment Method: Pulse Oximetry - Respirations Respiratory Rate: 18 Oxygen Delivery Method: Room Air O2 Sat by Pulse Oximetry: 99 - Blood Pressure Right Arm Blood Pressure: 108/74 Blood Pressure Mean: 85 Blood Pressure Source: Automatic Cuff Medical Screen Scoring (Pre) - Cervical Exam Dilation: 0 cm = 0 Effacement: Exam Deferred Membranes: Intact - Uterine Contractions Frequency: > 5 minutes apart = 1 Duration: > 40 seconds = 2 Intensity: N/A - Maternal Vital Signs Maternal Temperature: N/A Maternal Blood Pressure: N/A Signs of Preeclampsia: N/A Maternal Respirations: N/A - Maternal Trauma Maternal Trauma: N/A - Assessment - Baby A Baseline FHR: 145 Heart Rate - NICHD Category: Category I (Normal) = 0 NST: Reactive Position: N/A Station: N/A - Total Score - Baby A Total Score - Baby A: 3 - Total Score - Baby B Total Score - Baby B: 3 - Total Score - Baby C Total Score - Baby C: 3 - Level of Risk - Baby A Level of Risk - Baby A: Low (0-5) - Level of Risk - Baby B Level of Risk - Baby B: Low (0-5) - Level of Risk - Baby C Level of Risk - Baby C: Low (0-5) Physician Notification (Pre) - Physician Notified Physician Notified Date: 07/29/20 Physician Notified Time: 19:39 New Order Received: Yes - Notification Comment Comment: Dr. Donald called, report given on maternal and status, pt complaints of. cramping and ney linda intermittently for the past 3 days. Pt has no complications. with her but has family that has had complications. Vitals WNL, FHTs 150s,. moderate variability, and accels. Pt has had 1 contraction that she did not feel in the. 20 mins she has been here. Orders to collect and send an FFN, SVE, and observe for at. least 1 hour total. Orders to discharge pt home if FFN is negative with instructions for pelvic. rest and to call the office tomorrow to get an appointment for this week. Disposition - Disposition OB Disposition: Physician follow up in office, Discharge to home Discharge Date: 07/29/20 Discharge Time: 20:40 I agree with the RN Medical Screening Exam: Yes Case reviewed; plan agreed upon as documented in EMR&OBIX.: Yes Comments: Patient was neither seen nor examined by me Diagnosis: FALSE LABOR BEFORE 37 COMPLETED WEEKS OF GEST, THIRD TRI
== END 2020-07-29 20:40 | disposition home or self-care (01) ==
LOC: FBPOP 19:03
PROVIDERS: ATTEND Obstetrics & Gynecology
DX: O47.02 False labor before 37 completed weeks of gestation, second trimester (principal); Z3A.24 24 weeks gestation of pregnancy
CPT/HCPCS: 82731; G0463; 99213

== ENCOUNTER 2020-09-20 22:34 | Outpatient (CLI) | payer OTHER ==
[2020-09-21 00:14] LABS: Appearance,Urine Cloudy (Clear); Bacteria,Urine Rare /hpf; Bilirubin,Urine Negative (Negative); Blood,Urine Negative (Negative); Color,Urine Yellow; Glucose,Urine (UA) Negative (Negative); Ketones,Urine 1+ (Negative); Leukocyte Esterase,Urine Large (Negative); Mucus,Urine Moderate /hpf; Nitrite,Urine Negative (Negative); Protein,Urine 1+ (Negative); RBC,Urine 2 /hpf (0-5); Specific Gravity,Urine 1.036 (1.001-1.035); Squamous Epithelial Cell,Urine 27 /hpf (0-4); WBC,Urine 21 /hpf (0-5)
[2020-09-21 03:16] VITALS: BP 104/65; PULSE 99; RESP 18; TEMP 98.1
--- NOTE | 2020-09-29 11:51 | P.MSEPDOC ---
Presenting Problems - Arrival Data Date of Arrival on Unit: 09/20/20 Time of Arrival on Unit: 22:34 Mode of Transport: Ambulatory - Complaint OB-Reason for Admission/Chief Complaint: Pain Comment: Pt presents to triage with c/o cramping that started last night. Pt states cramping was consistent last night and is now coming and going throughout the day today. Pt rates pain 7/10 and states pain is felt along lower abdomen Medical History - Information : 1 Para: 0 Term: 0 : 0 Abortions: Spontaneous or Elective: 0 Number of Living Children: 0 - Gestational Age Gestational Age by LEROY (wks/days): 32 Weeks and 0 Days Review of Systems - Review of Systems Constitutional: No problems Breast: No problems ENT: No problems Cardiovascular: No problems Respiratory: No problems Gastrointestinal: No problems Genitourinary: No problems Musculoskeletal: No problems Neurological: No problems Skin: No problems Vital Signs - Temperature Temperature: 98.1 F Temperature Source: Axillary - Pulse Pulse Oximetery Pulse Rate: 99 Pulse Assessment Method: Automatic Cuff - Respirations Respiratory Rate: 18 Oxygen Delivery Method: Room Air O2 Sat by Pulse Oximetry: 95 - Blood Pressure Right Arm Blood Pressure: 104/65 Blood Pressure Mean: 78 Blood Pressure Source: Automatic Cuff Medical Screen Scoring - Cervical Exam Dilation (cm): 0 Effacement (%): 40 Station: -3 Membranes: Intact - Uterine Contractions Frequency From (mins): 9 Frequency To (mins): 20 Duration From (seconds): 40 Duration To (seconds): 100 Intensity: Mild Resting: Soft to palpation - Assessment - Baby A Baseline FHR: 140 Heart Rate - NICHD Category: Category I (Normal) NST: Reactive Physician Notification - Physician Notified Physician Notified Date: 09/20/20 Physician Notified Time: 23:41 Physician: Joe Adams New Order Received: Yes - Notification Comment Comment: Dr. Adams called re: pt c/o cramping that started last night, pts report of cramping being constant last night and more intermittent throughout the day today, reactive NST, irregluar contraction pattern, positive movement, no bleeding or leaking of fluid, urine sample and FFN collected and SVE. Orders received to send urine. If urine comes back negative Dr. Adams states pt can be d/c home. Dr. Adams states FFN does not need to be sent as pt is not camron consistently and cervix is closed. Dr. Adams called and updated on urinalysis results. Dr. Adams states pt needs to increase fluids at home but can be d/c at this time Maternal Triage Index - Maternal Triage Index Presenting for scheduled procedure w/no complaint: No - Stat/Priority 1 Stat Priority 1: No - Urgent/Priority 2 Urgent Priority 2: No Provider Notified: Joe dAams Provider Notified Time: 23:41 Criteria Met for Priority 2: <34 weeks c/o, or detectable, uterine ctx - Prompt/Priority 3 Prompt Priority 3: No - Non-Urgent/Priority 4 Non-Urgent Priority 4: No - Scheduled/Requesting Priority 5 Scheduled/Requesting Priority 5: No Disposition - Disposition OB Disposition: Discharge to home Discharge Date: 09/21/20 Discharge Time: 00:35 I agree with the RN Medical Screening Exam: Yes Physician's MSE Comment: I have neither seen nor examined with the patient. Case reviewed; plan agreed upon as documented in EMR&OBIX.: Yes Diagnosis: RELATED CONDITIONS, UNSPECIFIED, THIRD TRIMESTER
== END 2020-09-21 00:35 | disposition home or self-care (01) ==
LOC: FBPOP 22:34
PROVIDERS: ATTEND Obstetrics & Gynecology
DX: O26.893 Other specified pregnancy related conditions, third trimester (principal); R10.30 Lower abdominal pain, unspecified; Z3A.32 32 weeks gestation of pregnancy
CPT/HCPCS: 59025; 81001; G0463; 99213

== ENCOUNTER 2020-10-07 21:40 | Outpatient (CLI) | payer OTHER ==
[2020-10-07] MEDS ORDERED: AMPICILLIN 2,000 MG in SODIUM CHLORIDE 0.9% 100 ML IVPB ONE (22:00)
[2020-10-07] MEDS: LACTATED RINGERS 1,000 ML IV SCH ×2 (22:08→22:35)
[2020-10-07] MEDS ORDERED: BETAMET ACET-BETAMETH SOD PHOS 6 MG/ML MDV IM SCH (22:30)
--- NOTE | 2020-10-07 22:33 | P.HPOB ---
History of Present Illness H&P Date: 10/07/20 Chief Complaint: IUP @ 34 2/7 weeks, PPROM This is a 20-year-old at 34-2/7 weeks, EDC 11/16/20 based on 8 week ultrasound, that presents to labor and delivery with complaints of rupture of membranes around 2129. Patient has been receiving routine care with myself which has been essentially uncomplicated. Patient does have a history of anxiety, bipolar depression for which she has been off all medications during this . Patient is a prior history of smoking/VB. Patient did complain of increasing urticaria around 31 weeks' workup for cholestasis was noted to be negative. Patient notes good movement, denies contractions, denies vaginal bleeding. 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 On bloodwork this patient has a blood type of O+, rubella status immune, hepatitis B surface antigen negative, RPR is nonreactive, HIV is negative Review of Systems Constitutional: Denies fatigue, Denies fever Ears, nose, mouth and throat: Denies headache Cardiovascular: Denies leg edema Respiratory: Denies dyspnea Gastrointestinal: Denies constipation, Denies diarrhea, Denies nausea, Denies vomiting Genitourinary: Reports Past Medical History Past Medical History: No Reported History Additional Past Medical History / Comment(s): ovarian cysts History of Any Multi-Drug Resistant Organisms: None Reported Past Surgical History: No Surgical Hx Reported Smoking Status: Never smoker Medications and Allergies Home Medications Medication Instructions Recorded Confirmed Type Pnv No.95/Ferrous Fum/Folic AC 1 each PO DAILY 07/29/20 10/07/20 History [ Multivitamin Tablet] Allergies Allergy/AdvReac Type Severity Reaction Status Date / Time No Known Allergies Allergy Verified 10/07/20 21:49 Exam Osteopathic Statement: *. No significant issues noted on an osteopathic structural exam other than those noted in the History and Physical/Consult. 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 heart tones returned be category 1, some irritability is appreciated. Vertex presentation is confirmed with ultrasound. Assessment and Plan (1) 34 weeks gestation of Current Visit: Yes Status: Acute Code(s): Z3A.34 - 34 WEEKS GESTATION OF SNOMED Code(s): 73660792 (2) premature rupture of membranes (PPROM) with unknown onset of labor Current Visit: Yes Status: Acute Code(s): O42.919 - PRETRM PIYUSH ROM, UNSP TIME BETW RUPT AND ONST LABR, UNSP TRI SNOMED Code(s): 20348274642460562 Plan: 20-year-old at 34 and 2, estimated date of confinement 11/16. Patient states she had a small amount of leakage around 2130. Patient noted the fluid to be clear in nature. Patient was confirmed rupture of membranes with amnisure. Patient appears comfortable and stable for transfer. [facility] is contacted regarding transfer of this patient given her gestational age. IV fluids are begun, ampicillin is given, betamethasone is administered. EMS is called, patient aware of need for transfer given gestational age.
[2020-10-07 23:10] VITALS: BP 118/71; PULSE 107; RESP 18; TEMP 97.8
== END 2020-10-07 23:04 ==
LOC: FBPOP 21:40
PROVIDERS: ATTEND Obstetrics & Gynecology Obstetrics
DX: O42.913 Preterm premature rupture of membranes, unspecified as to length of time between rupture and onset of labor, third trimester (principal); Z3A.34 34 weeks gestation of pregnancy; Z87.891 Personal history of nicotine dependence
CPT/HCPCS: 59025; 96360; 96372; 84112; G0463; J0290; J0702; 99214

== ENCOUNTER 2020-12-03 09:39 | Emergency (ER) | payer OTHER ==
[2020-12-03 10:06] VITALS: BP 102/65; PULSE 77; RESP 18; TEMP 97.8
--- NOTE | 2020-12-03 12:14 | ED ---
Headache HPI - General Chief Complaint: Headache Stated Complaint: Covid Screening Time Seen by Provider: 12/03/20 11:38 Mode of arrival: ambulatory Limitations: no limitations - History of Present Illness Initial Comments: Patient is a 20-year-old female presenting to the emergency department requesting Covid testing. She states she's had a headache for the past couple days as well as body aches. She denies having any fevers or chills, no cough or shortness of breath. Her appetite hasn't been a little low but no nausea or vomiting, no diarrhea. She states her [id number] recently tested positive for Covid and she would like to be tested. She has a almost 2-month-old daughter here is here with her now and wanted her tested as well. She has no further complaints. Her vitals are stable upon arrival. - Related Data Home Medications Medication Instructions Recorded Confirmed Pnv No.95/Ferrous Fum/Folic AC 1 each PO DAILY 07/29/20 10/07/20 [ Multivitamin Tablet] Allergies Allergy/AdvReac Type Severity Reaction Status Date / Time No Known Allergies Allergy Verified 12/03/20 10:06 Review of Systems ROS Statement: Those systems with pertinent positive or pertinent negative responses have been documented in the HPI. ROS Other: All systems not noted in ROS Statement are negative. Past Medical History Past Medical History: No Reported History Additional Past Medical History / Comment(s): ovarian cysts History of Any Multi-Drug Resistant Organisms: None Reported Past Surgical History: No Surgical Hx Reported Past Psychological History: Anxiety, Bipolar, Depression Smoking Status: Never smoker Past Alcohol Use History: None Reported Past Drug Use History: None Reported General Exam - General Exam Comments Initial Comments: GENERAL: Patient is well-developed and well-nourished. Patient is nontoxic and in no acute distress. HEAD: Atraumatic, normocephalic. EYES: Pupils equal round and reactive to light, extraocular movements intact, sclera anicteric, conjunctiva are normal. Eyelids were unremarkable. ENT: Nares patent, oropharynx clear without exudates. Moist mucous membranes. NECK: Normal range of motion, supple without lymphadenopathy or JVD. LUNGS: Unlabored respirations. Breath sounds clear to auscultation bilaterally and equal. No wheezes rales or rhonchi. HEART: Regular rate and rhythm without murmurs, rubs or gallops. ABDOMEN: Soft, nontender, normoactive bowel sounds. No guarding, no rebound. No masses appreciated. : Deferred MUSCULOSKELETAL: Normal extremities with adequate strength and normal range of motion, no pitting or edema. No clubbing or cyanosis. NEUROLOGICAL: Patient is alert and oriented x 3. SKIN: Warm, Dry, normal turgor, no rashes or lesions noted. Limitations: no limitations Course Vital Signs 12/03/20 10:01 Temperature 97.8 F Pulse Rate 77 Respiratory 18 Rate Blood Pressure 102/65 O2 Sat by Pulse 97 Oximetry Medical Decision Making - Medical Decision Making Patient is an almost 20-year-old female here requesting Covid testing. She's had some headaches, body aches. Her [id number] recently tested positive for Covid. Her vitals are stable, her exam is unremarkable. Rapid Covid is negative. I discussed the patient and her symptoms are most likely related to viral illness. Recommended Tylenol and/or Motrin for her headache. She can follow-up with her primary care. She is agreeable splenic urine is stable for discharge. Case discussed with Dr. Matson. - Lab Data Lab Results 12/03/20 Range/Units 12:18 Coronavirus (PCR) Not Detected (Not Detectd) Disposition Clinical Impression: Headache, Viral illness Disposition: HOME SELF-CARE Condition: Stable Instructions (If sedation given, give patient instructions): Viral Syndrome (ED) Additional Instructions: Please return to the Emergency Department if symptoms worsen or any other concerns. May take Tylenol or Motrin for any headaches or body aches. Please follow-up with your family doctor. Is patient prescribed a controlled substance at d/c from ED?: No Referrals: Kelly Self DO [Primary Care Provider] - 1-2 days Time of Disposition: 13:56
== END 2020-12-03 14:36 | disposition home or self-care (01) ==
LOC: EC 09:39
DX: B34.9 Viral infection, unspecified (principal); F41.9 Anxiety disorder, unspecified; F31.9 Bipolar disorder, unspecified; Z20.822 Contact with and (suspected) exposure to COVID-19
CPT/HCPCS: 87635; 99284

== ENCOUNTER 2021-09-14 17:40 | Emergency (ER) | payer OTHER ==
[2021-09-14 17:50] VITALS: RESP 18
[2021-09-14] MEDS ORDERED: SODIUM CHLORIDE 0.9% 1,000 ML IV STA (18:30)
[2021-09-14] MEDS ORDERED: KETOROLAC 15 MG/ML 1 ML VIAL IVP STA (18:30)
[2021-09-14] MEDS ORDERED: ONDANSETRON 4 MG/2 ML VIAL IVP STA (18:30)
[2021-09-14 19:17] LABS: ALT 12 U/L (4-34); AST 23 U/L (14-36); African American GFR (CKD) >90 (>60 ml/min/1.73 sqM); Alkaline Phosphatase 48 U/L (38-126); Anion Gap 4 mmol/L; Blood Urea Nitrogen 12 mg/dL (7-17); Calcium 7.3 mg/dL (8.4-10.2); Carbon Dioxide 19 mmol/L (22-30); Chloride 110 mmol/L (98-107); Glucose 74 mg/dL (74-99); Non-African American GFR(CKD) >90 (>60 ml/min/1.73 sqM); Sodium 133 mmol/L (137-145); Total Bilirubin 0.3 mg/dL (0.2-1.3); Total Protein 5.3 g/dL (6.3-8.2)
--- NOTE | 2021-09-14 19:18 | ED ---
Female Urogenital HPI - General Source: patient, family, EMS, RN notes reviewed Mode of arrival: EMS Limitations: no limitations - History of Present Illness MD Complaint: vaginal bleeding Consistency: constant <Parris Baird - Last Filed: 09/15/21 16:41> <Mandie Vega - Last Filed: 09/18/21 22:46> - General Chief complaint: Vaginal Bleeding Stated complaint: vaginal bleeding Time Seen by Provider: 09/14/21 17:49 - History of Present Illness Initial comments: This is a 20-year-old female who presents to the emergency department with vaginal bleeding. She took Mistoprolol around 1 PM today for elective . This was prescribed by [facility]. She is approximately 9 weeks along in the . She has never taken this medication before. She is going through pads every 10 minutes and started feeling very dizzy and li ghtheaded. Also reports associated nausea and pelvic cramping. Her follow-up is scheduled with [facility] next week, she usually sees Dr. Ambrose, HELP DESK INTERN, however their office does not participate in abortions or their follow up appointments. Denies any fevers, chills, sore throat, cough, dyspnea, chest pain, palpitations, vomiting, diarrhea, back pain, or headaches. (Parris Baird) - Related Data Home Medications Medication Instructions Recorded Confirmed Pnv No.95/Ferrous Fum/Folic AC 1 each PO DAILY 07/29/20 10/07/20 [ Multivitamin Tablet] Previous Rx's Medication Instructions Recorded Ondansetron Odt [Zofran Odt] 4 mg PO Q8HR PRN #15 tab 09/14/21 Allergies Allergy/AdvReac Type Severity Reaction Status Date / Time No Known Allergies Allergy Verified 09/14/21 17:49 Review of Systems ROS Other: All systems not noted in ROS Statement are negative. <Parris Baird - Last Filed: 09/15/21 16:41> ROS Other: All systems not noted in ROS Statement are negative. <Mandie Vega - Last Filed: 09/18/21 22:46> ROS Statement: Those systems with pertinent positive or pertinent negative responses have been documented in the HPI. Past Medical History Past Medical History: No Reported History Additional Past Medical History / Comment(s): ovarian cysts History of Any Multi-Drug Resistant Organisms: None Reported Past Surgical History: No Surgical Hx Reported Past Psychological History: Anxiety, Bipolar, Depression Smoking Status: Vaper Past Alcohol Use History: Occasional Past Drug Use History: None Reported <Parris Baird - Last Filed: 09/15/21 16:41> General Exam Limitations: no limitations General appearance: alert, in no apparent distress Head exam: Present: atraumatic, normocephalic, normal inspection Respiratory exam: Present: normal lung sounds bilaterally. Absent: respiratory distress, wheezes, rales, rhonchi, stridor Cardiovascular Exam: Present: regular rate, normal rhythm, normal heart sounds. Absent: systolic murmur, diastolic murmur, rubs, gallop, clicks External exam: Present: normal external exam. Absent: erythema, swelling Speculum exam: Present: vaginal bleeding, tissue Neurological exam: Present: alert, oriented X3, CN II-XII intact Psychiatric exam: Present: normal affect, normal mood Skin exam: Present: warm, dry, intact, normal color. Absent: rash <Parris Baird - Last Filed: 09/15/21 16:41> Course Vital Signs 09/14/21 09/14/21 09/14/21 17:43 18:50 21:49 Pulse Rate 73 87 76 Respiratory 18 18 18 Rate Blood Pressure 112/42 97/37 93/62 O2 Sat by Pulse 100 99 99 Oximetry 09/15/21 00:20 Pulse Rate 67 Respiratory 18 Rate Blood Pressure 91/55 O2 Sat by Pulse 96 Oximetry Medical Decision Making - Lab Data Result diagrams: 09/14/21 22:30 09/14/21 18:49 - Radiology Data Radiology results: report reviewed, image reviewed <Parris Baird - Last Filed: 09/15/21 16:41> - Lab Data Result diagrams: 09/14/21 22:30 09/14/21 18:49 <Mandie Vega - Last Filed: 09/18/21 22:46> - Medical Decision Making This is a 20-year-old female who presents to the emergency department for vaginal bleeding. Lab work revealed the mildly decreased hemoglobin initially. This was later rechecked and had decreased to 8.9. Patient was rehydrated with normal saline and treated for nausea and pain. Pelvic ultrasound obtained revealing a thickened endometrium and retained products of contraception, no IUP. After approximately 4 hours, she states that her bleeding did improve and she is not passing any clots. Given that her hemoglobin had decreased and her blood pressure was in the 90s over 60s, we discussed having her admitted to monitor her blood pressure and hemoglobin levels, however the patient declined given that she is feeling much better. Prescription for Zofran provided. She has medication at home that she is able to take for the pain. Strict return parameters discussed, and that if the bleeding worsens or she feels increasingly fatigued or lightheadedness, she should return immediately. Return precautions reviewed in depth, the patient is instructed to return to the emergency department with any new, worsening, or concerning symptoms. Patient verbalized understanding. This case was discussed in detail with the attending ED physician. Presentation, findings, and treatment plan discussed in detail as well. (Parris Baird) - Lab Data Lab Results 09/14/21 09/14/21 09/14/21 Range/Units 18:30 18:49 19:28 WBC 15.0 H (4.0-11.0) k/uL RBC 3.43 L (3.80-5.40) m/uL Hgb 11.0 L (11.4-16.0) gm/dL Hct 31.8 L (34.0-46.0) % MCV 92.7 (80.0-100.0) fL MCH 32.1 (25.0-35.0) pg MCHC 34.6 (31.0-37.0) g/dL RDW 12.2 (11.5-15.5) % Plt Count 261 (150-450) k/uL MPV 8.3 Neutrophils % 83 % Lymphocytes % 11 % Monocytes % 5 % Eosinophils % 0 % Basophils % 0 % Neutrophils # 12.4 H (1.3-7.7) k/uL Lymphocytes # 1.6 (1.0-4.8) k/uL Monocytes # 0.7 (0-1.0) k/uL Eosinophils # 0.0 (0-0.7) k/uL Basophils # 0.0 (0-0.2) k/uL PT (9.0-12.0) sec INR (<1.2) Sodium 133 L (137-145) mmol/L Potassium 4.0 (3.5-5.1) mmol/L Chloride 110 H (98-107) mmol/L Carbon Dioxide 19 L (22-30) mmol/L Anion Gap 4 mmol/L BUN 12 (7-17) mg/dL Creatinine 0.53 (0.52-1.04) mg/dL Est GFR (CKD-EPI)AfAm >90 (>60 ml/min/1.73 sqM) Est GFR (CKD-EPI)NonAf >90 (>60 ml/min/1.73 sqM) Glucose 74 (74-99) mg/dL Calcium 7.3 L (8.4-10.2) mg/dL Total Bilirubin 0.3 (0.2-1.3) mg/dL AST 23 (14-36) U/L ALT 12 (4-34) U/L Alkaline Phosphatase 48 (38-126) U/L Total Protein 5.3 L (6.3-8.2) g/dL Albumin 3.0 L (3.5-5.0) g/dL HCG, Quant >318488.0 mIU/mL Blood Type O Positive Blood Type Recheck O Pos Bld Type Recheck Status No Antibody Screen NEGATIVE Spec Expiration Date 09/17/2021 - 232909/14/21 09/14/21 Range/Units 19:28 22:30 WBC 9.9 (4.0-11.0) k/uL RBC 2.77 L (3.80-5.40) m/uL Hgb 8.9 L D (11.4-16.0) gm/dL Hct 25.9 L (34.0-46.0) % MCV 93.3 (80.0-100.0) fL MCH 32.1 (25.0-35.0) pg MCHC 34.4 (31.0-37.0) g/dL RDW 12.7 (11.5-15.5) % Plt Count 207 (150-450) k/uL MPV 8.3 Neutrophils % % Lymphocytes % % Monocytes % % Eosinophils % % Basophils % % Neutrophils # (1.3-7.7) k/uL Lymphocytes # (1.0-4.8) k/uL Monocytes # (0-1.0) k/uL Eosinophils # (0-0.7) k/uL Basophils # (0-0.2) k/uL PT 11.5 (9.0-12.0) sec INR 1.1 (<1.2) Sodium (137-145) mmol/L Potassium (3.5-5.1) mmol/L Chloride (98-107) mmol/L Carbon Dioxide (22-30) mmol/L Anion Gap mmol/L BUN (7-17) mg/dL Creatinine (0.52-1.04) mg/dL Est GFR (CKD-EPI)AfAm (>60 ml/min/1.73 sqM) Est GFR (CKD-EPI)NonAf (>60 ml/min/1.73 sqM) Glucose (74-99) mg/dL Calcium (8.4-10.2) mg/dL Total Bilirubin (0.2-1.3) mg/dL AST (14-36) U/L ALT (4-34) U/L Alkaline Phosphatase (38-126) U/L Total Protein (6.3-8.2) g/dL Albumin (3.5-5.0) g/dL HCG, Quant mIU/mL Blood Type Blood Type Recheck Bld Type Recheck Status Antibody Screen Spec Expiration Date Disposition Is patient prescribed a controlled substance at d/c from ED?: No <Parris Baird - Last Filed: 09/15/21 16:41> <Mandie Vega - Last Filed: 09/18/21 22:46> Clinical Impression: Incomplete Disposition: HOME SELF-CARE Instructions (If sedation given, give patient instructions): Abnormal (Dysfunctional) Uterine Bleeding (ED) Additional Instructions: Return to the emergency department with any new, worsening, or concerning symptoms. Especially, if the bleeding becomes heavier or you become more fatigued or dizzy. Take the Zofran as needed every 8hrs for nausea and vomiting. Use your Ibuprofen and [place] at home for pain. Ensure you remain well hydrated. Follow up with the family clinic. Prescriptions: Ondansetron Odt [Zofran Odt] 4 mg PO Q8HR PRN #15 tab PRN Reason: Nausea And Vomiting Referrals: Kelly Self DO [Primary Care Provider] - 1-2 days
[2021-09-14 19:43] LABS: Basophils % (A) 0 %; Eosinophils % (A) 0 %; HCT 31.8 % (34.0-46.0); Lymphocytes # (A) 1.6 k/uL (1.0-4.8); Lymphocytes % (A) 11 %; MCH 32.1 pg (25.0-35.0); MCHC 34.6 g/dL (31.0-37.0); MCV 92.7 fL (80.0-100.0); Mean Platelet Volume 8.3; Monocytes # (A) 0.7 k/uL (0-1.0); Monocytes % (A) 5 %; Neutrophils # (A) 12.4 k/uL (1.3-7.7); Neutrophils % (A) 83 %; Platelet Count 261 k/uL (150-450); RBC 3.43 m/uL (3.80-5.40); RDW 12.2 % (11.5-15.5)
[2021-09-14 19:55] LABS: INR 1.1 (<1.2); Prothrombin Time 11.5 sec (9.0-12.0)
[2021-09-14] MEDS ORDERED: MORPHINE SULFATE 2 MG/ML SYRINGE IVP STA (20:26)
[2021-09-14] MEDS ORDERED: LIDOCAINE 1%-EPI 1:100,000 20 ML VIAL SUBMUCOSAL ONE (20:28)
[2021-09-14] MEDS ORDERED: SODIUM CHLORIDE 0.9% 1,000 ML IV ONE (20:28)
[2021-09-14 20:33] LABS: HCG,Quantitative Serum >225000.0 mIU/mL
--- NOTE | 2021-09-14 21:26 | US ---
EXAMINATION TYPE: Transabdominal DATE OF EXAM: 09/14/2021 9:14 PM COMPARISON: NONE CLINICAL HISTORY: Pelvic pain and vaginal bleeding. heavy vaginal bleeding. patient took misoprostol today (voluntary ) EXAM PERFORMED: EXAM MEASUREMENTS: GESTATIONAL AGE / DATING Physician Established: Not yet established Dates by LMP: LMP unknown Dates by First Scan: No previous this is first scan Dates by Current Scan for: No IUP seen at this time MATERNAL ANATOMY Uterus: 10.1 x 5.3 x 6.1cm Right Ovary: 3.6 x 1.2 x 3.0cm Left Ovary: 2.4 x 1.5 x 2.7cm Post CDS / Adnexa: appears wnl Presence of free fluid: no Presence of corpus luteal cyst: yes, hypoechoic area right ovary = 1.7 x 1.4 x 1.9cm GESTATION / SURVEY IUP: No IUP seen at this time thickened, heterogeneous endometrium. bulky cervix Date of LMP: unknown Beta HcG (if available): >[id number] IMPRESSION: There is thickened endometrium and complex echogenicity consistent with some retained products and bl ood clot and incomplete .. No adnexal mass.
[2021-09-14 22:44] LABS: HCT 25.9 % (34.0-46.0); MCH 32.1 pg (25.0-35.0); MCHC 34.4 g/dL (31.0-37.0); MCV 93.3 fL (80.0-100.0); Mean Platelet Volume 8.3; Platelet Count 207 k/uL (150-450); RBC 2.77 m/uL (3.80-5.40); RDW 12.7 % (11.5-15.5); WBC 9.9 k/uL (4.0-11.0)
[2021-09-14 23:02] LABS: HGB 8.9 gm/dL (11.4-16.0)
[2021-09-14] MEDS ORDERED: ONDANSETRON 4 MG ODT STARTER PACK 2 TAB BTL PO STA (23:25)
[2021-09-15 00:20] VITALS: BP 91/55; PULSE 67
== END 2021-09-15 00:20 | disposition home or self-care (01) ==
LOC: EC 17:40
DX: O03.4 Incomplete spontaneous abortion without complication (principal); F17.209 Nicotine dependence, unspecified, with unspecified nicotine-induced disorders
CPT/HCPCS: 36415; 86900; 86901; 80053; 85025; 85027; 85610; 86850; 84702; 76801; 99284; 96374; 96375; 96361; J2405; J2270; J1885; S0119; 96376

== ENCOUNTER 2022-08-14 09:34 | Day surgery (SDC) | payer OTHER ==
[2022-08-13 09:31] VITALS: BMI 30.6
[~2022-08-14 09:34] MED LIST: LACTATED RINGERS 1,000 ML IV SCH
[2022-08-14 10:14] VITALS: TEMP 97.9
[2022-08-14] MEDS ORDERED: fentaNYL (PF) 50 MCG/ML 2 ML AMP ONE (10:46)
[2022-08-14] MEDS ORDERED: LIDOCAINE 2% INJ 20 MG/ML (2 ML VIAL) ONE (10:46)
[2022-08-14] MEDS ORDERED: MIDAZOLAM 2 MG/2 ML VIAL ONE (10:46)
[2022-08-14] MEDS ORDERED: PROPOFOL 10 MG/ML 20 ML VIAL IV ONE (10:46)
--- NOTE | 2022-08-14 10:51 | P.GSHP ---
History of Present Illness H&P Date: 08/14/22 Chief Complaint: Epigastric pain, GI bleed This a 21-year-old female who's had complaints of epigastric pain and rectal bleeding. Patient presents today for EGD and colonoscopy. Past Medical History Past Medical History: No Reported History, Seizure Disorder Additional Past Medical History / Comment(s): ovarian cysts. HAS BEEN VOMITTING AND PASSING BLOOD IN STOOL. HX MICRO SEIZURES-LAST ONE OVER A YEAR AGO-(HAS THEM IN HER SLEEP) History of Any Multi-Drug Resistant Organisms: None Reported Past Surgical History: No Surgical Hx Reported Past Anesthesia/Blood Transfusion Reactions: No Reported Reaction Smoking Status: Vaper - Past Family History Mother Family Medical History: Cancer, Deep Vein Thrombosis (DVT) Medications and Allergies Home Medications Medication Instructions Recorded Confirmed Type clonazePAM [Clonazepam] 0.25 mg PO HS 08/13/22 08/13/22 History norgestimate-ethinyl estradioL 1 each PO HS 08/13/22 08/13/22 History [Alyssa 0.25-0.035 mg Tablet] Allergies Allergy/AdvReac Type Severity Reaction Status Date / Time No Known Allergies Allergy Verified 08/13/22 09:19 Surgical - Exam Vital Signs Temp Pulse Resp BP Pulse Ox 97.9 F 63 20 124/67 100 08/14/22 10:11 08/14/22 10:11 08/14/22 10:11 08/14/22 10:11 08/14/22 10:11 - General well developed, well nourished, no distress - Eyes PERRL - ENT normal pinna - Neck no masses - Respiratory normal expansion - Cardiovascular Rhythm: regular - Abdomen Abdomen: soft, non tender Assessment and Plan Assessment: Epigastric pain, GI bleed. We'll perform EGD and colonoscopy
--- NOTE | 2022-08-14 11:09 | P.OP ---
Date of Procedure: 08/14/22 Preoperative Diagnosis: Epigastric pain GI bleed Postoperative Diagnosis: Antral gastritis Normal colonoscopy No evidence of GI bleed. Procedure(s) Performed: EGD Colonoscopy Anesthesia: MAC Surgeon: Pradip Yusuf Pathology: other (Antrum) Condition: stable Disposition: PACU Description of Procedure: Patient's placed on the endoscopy table in the lateral position. She received IV sedation. The gastroscope placed oropharynx passed in the esophagus and stomach. Scope was then placed through the pylorus. The first and second portion of duodenum appeared normal. The scope was then brought back the antrum there was minimal inflation a biopsy was performed. The scope was unretroflexed and remainder the stomach appeared normal. There was no hiatal hernia. The GE junction was at 40 cm. The distal esophagus appeared normal. The proximal esophagus appeared normal. Scope was then withdrawn for patient. Next digital rectal exam was performed. This revealed no abnormalities. The flexible colonoscope was then placed patient anus and passed throughout the entire colon. The ileocecal valve was visually is. The cecum, ascending and transverse colon appeared normal. The descending and sigmoid colon appeared normal. Scope was brought back the rectum and this was normal. Scope withdrawn for patient. There is no evidence of GI bleed. Patient may have had hemorrhoidal bleeding prior.
[2022-08-14 11:13] VITALS: RESP 16
[2022-08-14 11:37] VITALS: BP 114/65; PULSE 80
== END 2022-08-14 11:55 | disposition home or self-care (01) ==
LOC: ORWHC2ENDO 09:34
PROVIDERS: ATTEND Surgery
DX: K31.9 Disease of stomach and duodenum, unspecified (principal); K29.50 Unspecified chronic gastritis without bleeding; F17.290 Nicotine dependence, other tobacco product, uncomplicated; G40.909 Epilepsy, unspecified, not intractable, without status epilepticus; F41.9 Anxiety disorder, unspecified; F32.A Depression, unspecified; Z86.73 Personal history of transient ischemic attack (TIA), and cerebral infarction without residual deficits; Z79.899 Other long term (current) drug therapy
CPT/HCPCS: 81025; 88305; 45378; 43239; J2250; J3010; J2704; J2001

== ENCOUNTER 2022-08-15 12:32 | Emergency (ER) | payer OTHER ==
[2022-08-15 12:41] VITALS: TEMP 98
[2022-08-15] MEDS ORDERED: SODIUM CHLORIDE 0.9% 1,000 ML IV STA ×2 (12:53→13:36)
--- NOTE | 2022-08-15 12:58 | ED ---
General Adult HPI - General Chief complaint: Dizziness Stated complaint: Dizziness, SOB Time Seen by Provider: 08/15/22 12:47 Source: patient Mode of arrival: wheelchair Limitations: no limitations - History of Present Illness Initial comments: 21-year-old female presented to the ED with the chief complaint of nausea/vomiting. Patient was previously here yesterday for an endoscopy and colonoscopy. States that this morning, woke up with nausea, vomiting, dizziness. She also notes that she feels "shaky" and is having trouble breathing. Denies tobacco use. Patient is on control. Denies personal history of cancer. Denies chest pain. No other complaints. - Related Data Home Medications Medication Instructions Recorded Confirmed clonazePAM [Clonazepam] 0.25 mg PO HS 08/13/22 08/13/22 norgestimate-ethinyl estradioL 1 each PO HS 08/13/22 08/13/22 [Alyssa 0.25-0.035 mg Tablet] Allergies Allergy/AdvReac Type Severity Reaction Status Date / Time No Known Allergies Allergy Verified 08/15/22 12:41 Review of Systems ROS Statement: Those systems with pertinent positive or pertinent negative responses have been documented in the HPI. ROS Other: All systems not noted in ROS Statement are negative. Past Medical History Past Medical History: No Reported History, Seizure Disorder Additional Past Medical History / Comment(s): ovarian cysts. HAS BEEN VOMITTING AND PASSING BLOOD IN STOOL. HX MICRO SEIZURES-LAST ONE OVER A YEAR AGO-(HAS THEM IN HER SLEEP) History of Any Multi-Drug Resistant Organisms: None Reported Past Surgical History: No Surgical Hx Reported Past Anesthesia/Blood Transfusion Reactions: No Reported Reaction Past Psychological History: Anxiety, Bipolar, Depression Smoking Status: Vaper Past Alcohol Use History: None Reported Past Drug Use History: None Reported - Past Family History Mother Family Medical History: Cancer, Deep Vein Thrombosis (DVT) General Exam Limitations: no limitations General appearance: alert Head exam: Present: atraumatic, normocephalic Eye exam: Present: normal appearance, PERRL, EOMI ENT exam: Present: normal exam, mucous membranes moist Respiratory exam: Present: normal lung sounds bilaterally Cardiovascular Exam: Present: normal rhythm GI/Abdominal exam: Present: soft Neurological exam: Present: alert, oriented X3, CN II-XII intact, other Skin exam: Present: warm (Diaphoretic) Course Vital Signs 08/15/22 08/15/22 08/15/22 12:37 12:50 13:00 Temperature 98.0 F Pulse Rate 68 Respiratory 20 Rate Blood Pressure 121/74 133/81 113/75 O2 Sat by Pulse 100 Oximetry 08/15/22 08/15/22 08/15/22 13:10 13:20 13:40 Temperature Pulse Rate 64 65 Respiratory 18 15 Rate Blood Pressure 99/77 134/88 108/71 O2 Sat by Pulse Oximetry 08/15/22 08/15/22 08/15/22 13:50 14:00 14:20 Temperature Pulse Rate 81 59 L Respiratory 15 21 Rate Blood Pressure 117/107 117/107 118/74 O2 Sat by Pulse Oximetry 08/15/22 14:30 Temperature Pulse Rate 55 L Respiratory 20 Rate Blood Pressure 118/74 O2 Sat by Pulse Oximetry Medical Decision Making - Medical Decision Making Was pt. sent in by a medical professional or institution (, PA, GAMBLING MONITOR, urgent care, hospital, or assisted...) When possible be specific @ -No Did you speak to anyone other than the patient for history (EMS, parent, family, police, friend...)? What history was obtained from this source @ -No Did you review nursing and triage notes (agree or disagree)? Why? @ -I reviewed and agree with nursing and triage notes Were old charts reviewed (outside hosp., previous admission, EMS record, old EKG, old radiological studies, urgent care reports/EKG's, assisted records)? Report findings @ -Reviewed old charts showing upper endoscopy and colonoscopy yesterday. Differential Diagnosis (chest pain, altered mental status, abdominal pain women, abdominal pain men, vaginal bleeding, weakness, fever, dyspnea, syncope, headache, dizziness, GI bleed, back pain, seizure, CVA, palpatations, mental health, musculoskeletal)? @ -Acute GI bleed/perforation, medication side effects, chest pain, CVA. This is not meant to be an all inclusive list. EKG interpreted by me (3pts min.). @ -As above X-rays interpreted by me (1pt min.). @ -None done CT interpreted by me (1pt min.). @ -CT showed no acute bleeding. U/S interpreted by me (1pt. min.). @ -None done What testing was considered but not performed or refused? (CT, X-rays, U/S, labs)? Why? @ -None What meds were considered but not given or refused? Why? @ -None Did you discuss the management of the patient with other professionals (professionals i.e. , PA, GAMBLING MONITOR, lab, RT, psych nurse, protective services social worker, evaluator transfer students, teacher, professional security officer, caser)? Give summary @ -No Was smoking cessation discussed for >3mins.? @ -No Was critical care preformed (if so, how long)? @ -No Were there social determinants of health that impacted care today? How? (Homelessness, low income, unemployed, alcoholism, drug addiction, transportation, low edu. Level, literacy, decrease access to med. care, longterm, rehab)? @ -No Was there de-escalation of care discussed even if they declined (Discuss DNR or withdrawal of care, Hospice)? DNR status @ -No What co-morbidities impacted this encounter? (DM, HTN, Smoking, COPD, CAD, Cancer, CVA, ARF, Chemo, Hep., AIDS, mental health diagnosis, sleep apnea, morbid obesity)? @ -None Was patient admitted / discharged? Hospital course, mention meds given and route , prescriptions, significant lab abnormalities, going to OR and other pertinent info. @ -Discharge. Patient given 2 L IV fluids and IV Zofran with improvement of symptoms. The CT as above. Labs showed no significant abnormalities. Time of discharge, vital signs stable and patient normotensive. Undiagnosed new problem with uncertain prognosis? @ -No Drug Therapy requiring intensive monitoring for toxicity (Heparin, Nitro, Insulin, Cardizem)? @ -No Were any procedures done? @ -No Diagnosis/symptom? @ -Nausea/vomiting Acute, or Chronic, or Acute on Chronic? @ -Acute Uncomplicated (without systemic symptoms) or Complicated (systemic symptoms)? @ -Uncomplicated Side effects of treatment? @ -No Exacerbation, Progression, or Severe Exacerbation? @ -No Poses a threat to life or bodily function? How? (Chest pain, [place], [place], pneumonia, PE, COPD, DKA, ARF, appy, cholecystitis, CVA, Diverticulitis, Homicidal, Suicidal, threat to staff... and all critical care pts) @ -No - Lab Data Result diagrams: 08/15/22 13:25 08/15/22 13:25 Lab Results 08/15/22 08/15/22 08/15/22 Range/Units 12:48 13:25 13:25 WBC 9.7 (3.8-10.6) k/uL RBC 4.70 (3.80-5.40) m/uL Hgb 13.6 (11.4-16.0) gm/dL Hct 41.3 (34.0-46.0) % MCV 87.9 (80.0-100.0) fL MCH 28.8 (25.0-35.0) pg MCHC 32.8 (31.0-37.0) g/dL RDW 13.4 (11.5-15.5) % Plt Count 362 (150-450) k/uL MPV 8.2 Neutrophils % 61 % Lymphocytes % 28 % Monocytes % 5 % Eosinophils % 2 % Basophils % 1 % Neutrophils # 6.0 (1.3-7.7) k/uL Lymphocytes # 2.7 (1.0-4.8) k/uL Monocytes # 0.5 (0-1.0) k/uL Eosinophils # 0.1 (0-0.7) k/uL Basophils # 0.1 (0-0.2) k/uL Sodium 139 (137-145) mmol/L Potassium 3.8 (3.5-5.1) mmol/L Chloride 107 (98-107) mmol/L Carbon Dioxide 21 L (22-30) mmol/L Anion Gap 11 mmol/L BUN 7 (7-17) mg/dL Creatinine 0.62 (0.52-1.04) mg/dL Est GFR (CKD-EPI)AfAm >90 (>60 ml/min/1.73 sqM) Est GFR (CKD-EPI)NonAf >90 (>60 ml/min/1.73 sqM) Glucose 95 (74-99) mg/dL Calcium 9.2 (8.4-10.2) mg/dL Total Bilirubin 0.4 (0.2-1.3) mg/dL AST 27 (14-36) U/L ALT 20 (4-34) U/L Alkaline Phosphatase 87 (38-126) U/L Total Protein 7.2 (6.3-8.2) g/dL Albumin 4.1 (3.5-5.0) g/dL Urine Color Urine Appearance (Clear) Urine pH (5.0-8.0) Ur Specific [employer] (1.001-1.035) Urine Protein (Negative) Urine Glucose (UA) (Negative) Urine Ketones (Negative) Urine Blood (Negative) Urine Nitrite (Negative) Urine Bilirubin (Negative) Urine Urobilinogen (<2.0) mg/dL Ur Leukocyte Esterase (Negative) Urine RBC (0-5) /hpf Urine WBC (0-5) /hpf Ur Squamous Epith Cells (0-4) /hpf Urine Bacteria (None) /hpf Urine Mucus (None) /hpf Blood Type O Positive Blood Type Recheck O Pos Bld Type Recheck Status No Antibody Screen NEGATIVE Spec Expiration Date 08/18/2022 - 232408/15/22 Range/Units 14:25 WBC (3.8-10.6) k/uL RBC (3.80-5.40) m/uL Hgb (11.4-16.0) gm/dL Hct (34.0-46.0) % MCV (80.0-100.0) fL MCH (25.0-35.0) pg MCHC (31.0-37.0) g/dL RDW (11.5-15.5) % Plt Count (150-450) k/uL MPV Neutrophils % % Lymphocytes % % Monocytes % % Eosinophils % % Basophils % % Neutrophils # (1.3-7.7) k/uL Lymphocytes # (1.0-4.8) k/uL Monocytes # (0-1.0) k/uL Eosinophils # (0-0.7) k/uL Basophils # (0-0.2) k/uL Sodium (137-145) mmol/L Potassium (3.5-5.1) mmol/L Chloride (98-107) mmol/L Carbon Dioxide (22-30) mmol/L Anion Gap mmol/L BUN (7-17) mg/dL Creatinine (0.52-1.04) mg/dL Est GFR (CKD-EPI)AfAm (>60 ml/min/1.73 sqM) Est GFR (CKD-EPI)NonAf (>60 ml/min/1.73 sqM) Glucose (74-99) mg/dL Calcium (8.4-10.2) mg/dL Total Bilirubin (0.2-1.3) mg/dL AST (14-36) U/L ALT (4-34) U/L Alkaline Phosphatase (38-126) U/L Total Protein (6.3-8.2) g/dL Albumin (3.5-5.0) g/dL Urine Color Colorless Urine Appearance Clear (Clear) Urine pH 7.0 (5.0-8.0) Ur Specific [employer] 1.027 (1.001-1.035) Urine Protein Negative (Negative) Urine Glucose (UA) Negative (Negative) Urine Ketones Negative (Negative) Urine Blood Negative (Negative) Urine Nitrite Negative (Negative) Urine Bilirubin Negative (Negative) Urine Urobilinogen <2.0 (<2.0) mg/dL Ur Leukocyte Esterase Large H (Negative) Urine RBC 1 (0-5) /hpf Urine WBC 17 H (0-5) /hpf Ur Squamous Epith Cells 7 H (0-4) /hpf Urine Bacteria Rare H (None) /hpf Urine Mucus Rare H (None) /hpf Blood Type Blood Type Recheck Bld Type Recheck Status Antibody Screen Spec Expiration Date Disposition Clinical Impression: Nausea & vomiting Disposition: HOME SELF-CARE Additional Instructions: Please return to the Emergency Department if symptoms worsen or any other concerns. Is patient prescribed a controlled substance at d/c from ED?: No Referrals: Kelly Self DO [Primary Care Provider] - 1-2 days Time of Disposition: 15:11
[2022-08-15] MEDS ORDERED: ONDANSETRON 4 MG/2 ML VIAL IVP STA (13:12)
[2022-08-15 13:36] LABS: Basophils # (A) 0.1 k/uL (0-0.2); Basophils % (A) 1 %; Eosinophils # (A) 0.1 k/uL (0-0.7); Eosinophils % (A) 2 %; HCT 41.3 % (34.0-46.0); HGB 13.6 gm/dL (11.4-16.0); Lymphocytes # (A) 2.7 k/uL (1.0-4.8); Lymphocytes % (A) 28 %; MCH 28.8 pg (25.0-35.0); MCHC 32.8 g/dL (31.0-37.0); MCV 87.9 fL (80.0-100.0); Mean Platelet Volume 8.2; Monocytes # (A) 0.5 k/uL (0-1.0); Monocytes % (A) 5 %; Neutrophils % (A) 61 %; Platelet Count 362 k/uL (150-450); RDW 13.4 % (11.5-15.5); WBC 9.7 k/uL (3.8-10.6)
[2022-08-15 13:46] LABS: ALT 20 U/L (4-34); AST 27 U/L (14-36); African American GFR (CKD) >90 (>60 ml/min/1.73 sqM); Albumin 4.1 g/dL (3.5-5.0); Alkaline Phosphatase 87 U/L (38-126); Anion Gap 11 mmol/L; Blood Urea Nitrogen 7 mg/dL (7-17); Calcium 9.2 mg/dL (8.4-10.2); Carbon Dioxide 21 mmol/L (22-30); Chloride 107 mmol/L (98-107); Glucose 95 mg/dL (74-99); Non-African American GFR(CKD) >90 (>60 ml/min/1.73 sqM); Potassium 3.8 mmol/L (3.5-5.1); Sodium 139 mmol/L (137-145); Total Bilirubin 0.4 mg/dL (0.2-1.3); Total Protein 7.2 g/dL (6.3-8.2)
[2022-08-15 15:00] LABS: Appearance,Urine Clear (Clear); Bacteria,Urine Rare /hpf; Bilirubin,Urine Negative (Negative); Blood,Urine Negative (Negative); Color,Urine Colorless; Glucose,Urine (UA) Negative (Negative); Ketones,Urine Negative (Negative); Leukocyte Esterase,Urine Large (Negative); Mucus,Urine Rare /hpf; Nitrite,Urine Negative (Negative); Protein,Urine Negative (Negative); RBC,Urine 1 /hpf (0-5); Specific Gravity,Urine 1.027 (1.001-1.035); Squamous Epithelial Cell,Urine 7 /hpf (0-4); Urobilinogen,Urine <2.0 mg/dL (<2.0); WBC,Urine 17 /hpf (0-5)
--- NOTE | 2022-08-15 15:09 | CT ---
EXAMINATION TYPE: CT ChestAbdPelvis w con DATE OF EXAM: 08/15/2022 COMPARISON: none HISTORY: Dizziness, SOB, S/P Scope CT DLP: 1019.9 mGycm CONTRAST: CT scan of the chest, abdomen and pelvis is performed without Oral Contrast and with IV Contrast, pat ient injected with 100 ml mL of Isovue 300. CT Chest: LUNGS: The lungs are clear and free of infiltrate or atelectasis. No pulmonary nodule or mass is det ected. No pleural effusion or CT evidence of interstitial lung disease. MEDIASTINUM: Thoracic aorta is of normal caliber. The heart is not enlarged. No evidence for media stinal mass or adenopathy. HILAR STRUCTURES: No evidence for mass. No hilar adenopathy is appreciated. OTHER: No significant abnormality. CONTRAST CT ABDOMEN AND PELVIS FINDINGS: LIVER/GB: No calcified gallstones. No space occupying hepatic lesion. Biliary tree is of normal ca liber. PANCREAS: No inflammation. No distinct mass. SPLEEN: No splenic enlargement. No lesion seen. ADRENALS: No nodule. No thickening. KIDNEYS/BLADDER: No hydronephrosis. No nephrolithiasis. No distinct renal mass. Distention of the urinary bladder with craniocaudal measurement of 13.6 cm. BOWEL: Normal appendix. Normal bowel caliber. No inflammation. GENITAL ORGANS: Small amount of free fluid within cul-de-sac. No uterine or ovarian mass present. LYMPH NODES: No greater than 1cm abdominal or pelvic lymph nodes are appreciated. AORTA: No significant abnormality. OSSEOUS STRUCTURES: No significant abnormality is seen. OTHER: No significant additional abnormality is seen. IMPRESSION: 1. Small amount of free fluid within the cul-de-sac. 2. Urinary bladder distention. 3. Otherwise unremarkable study
[2022-08-15 15:45] VITALS: BP 106/72; PULSE 60; RESP 16
== END 2022-08-15 15:46 | disposition home or self-care (01) ==
LOC: EC 12:32
DX: R11.2 Nausea with vomiting, unspecified (principal); F17.290 Nicotine dependence, other tobacco product, uncomplicated; Z86.59 Personal history of other mental and behavioral disorders
CPT/HCPCS: 36415; 93005; 86900; 86901; 80053; 85025; 86850; 81001; 71260; 74177; 99284; 96374; 96361 ×2; J2405; Q9967

== ENCOUNTER → 2022-11-10 | Day surgery (SDC) | payer OTHER ==
[2022-11-06 08:37] VITALS: BMI 29.7
[~2022-11-10] MED LIST changes: -LACTATED RINGERS 1,000 ML IV SCH; +SODIUM CHLORIDE 0.9% 1,000 ML IV SCH
--- NOTE | 2022-11-11 18:44 | P.EPPROC ---
- EP Procedure Note Electrophysiology Procedure Note: Diagnosis Recurrent presyncope Twelve-lead EKG shows sinus mechanism 160 beats only normal CA narrow QRS early repolarization abnormality, normal variant Tilt table test per protocol Baseline blood pressure 103/58 mmHg, Baseline heart is 64 beats a minute Patient was tilted upright at 90 of 70 per protocol her blood pressure remained in the 90s systolic heart rates remained in the 80s She had no complaints She was laid supine at the end of the procedure Impression Normal twelve-lead EKG No evidence for neurocardiogenic syncope or orthostatic intolerance
== END ==
LOC: CATHEP 09:32
PROVIDERS: ATTEND Internal Medicine Clinical Cardiac Electrophysiology
DX: R55 Syncope and collapse (principal); G40.909 Epilepsy, unspecified, not intractable, without status epilepticus; Z79.899 Other long term (current) drug therapy
CPT/HCPCS: 81025; 93660

== ENCOUNTER 2023-01-06 19:14 | Emergency (ER) | payer OTHER ==
[2023-01-06 19:40] LABS: Glucose,Whole Blood 84 mg/dL (70-110)
[2023-01-06 19:50] VITALS: BP 112/78; PULSE 85; RESP 16; TEMP 98.9
--- NOTE | 2023-01-06 20:11 | ED ---
Seizure HPI - General Source: patient Mode of arrival: ambulatory Limitations: no limitations <Elena Fierro - Last Filed: 01/06/23 20:10> <Sabino Matson - Last Filed: 01/06/23 23:02> - General Chief Complaint: Seizure Stated Complaint: seziures Time Seen by Provider: 01/06/23 20:10 - History of Present Illness Initial Comments: 22-year-old female with history of seizure disorder presenting with chief compla int of seizures. Patient states that she was unable to get her medication due to previous insurance issues. Patient now has insurance and is requesting her medication. She takes clonazepam and no other medications. (Elena Fierro) Dictation was produced using [employer] dictation software. please excuse any grammatical, word or spelling errors. Chief Complaint: 22-year-old female with history of seizure disorder presents with medication refill History of Present Illness: 22-year-old female she has past medical history of seizure disorder she ran out of her medications 5 days ago. She is prescribed clonazepam 0.5 mg daily. She states she had a seizure yesterday and also day before that. Patient does not have a follow-up appointment with her neurologist yet she is requesting medication refill. Patient has no complaints. The ROS documented in this emergency department record has been reviewed and confirmed by me. Those systems with pertinent positive or negative responses have been documented in the HPI. All other systems are other negative and/or noncontributory. (Sabino Matson) - Related Data Home Medications Medication Instructions Recorded Confirmed clonazePAM [Clonazepam] 0.25 mg PO HS 08/13/22 11/06/22 norgestimate-ethinyl estradioL 1 each PO HS 08/13/22 11/06/22 [Alyssa 0.25-0.035 mg Tablet] Previous Rx's Medication Instructions Recorded clonazePAM 0.5 mg PO DAILY 3 Days #3 tab 01/06/23 Allergies Allergy/AdvReac Type Severity Reaction Status Date / Time No Known Allergies Allergy Verified 01/06/23 19:38 Review of Systems ROS Other: All systems not noted in ROS Statement are negative. <Elena Fierro - Last Filed: 01/06/23 20:10> ROS Other: All systems not noted in ROS Statement are negative. <Sabino Matson - Last Filed: 01/06/23 23:02> ROS Statement: Those systems with pertinent positive or pertinent negative responses have been documented in the HPI. Past Medical History Past Medical History: Seizure Disorder Additional Past Medical History / Comment(s): ovarian cysts. HX MICRO SEIZURES- LAST ONE OVER A YEAR AGO-(HAS THEM IN HER SLEEP). PASSED OUT END OF AUGUST AND LOSS BLADDER CONTROL History of Any Multi-Drug Resistant Organisms: None Reported Past Surgical History: No Surgical Hx Reported Additional Past Surgical History / Comment(s): COLONOSCOPY/EGD Past Anesthesia/Blood Transfusion Reactions: No Reported Reaction Past Psychological History: Anxiety, Bipolar, Depression Smoking Status: Vaper - Past Family History Mother Family Medical History: Cancer, Deep Vein Thrombosis (DVT) <Elena Fierro - Last Filed: 01/06/23 20:10> General Exam Limitations: no limitations <Elena Fierro - Last Filed: 01/06/23 20:10> <Sabino Matson - Last Filed: 01/06/23 23:02> - General Exam Comments Initial Comments: Visual Physical Exam Vital signs reviewed General: Well-appearing, nontoxic, no acute distress. Head: Normocephalic, atraumatic Eyes: PERRLA, EOMI ENT: Airway patent Chest: Nonlabored breathing Skin: No visual rash, normal skin tone Neuro: Alert and oriented 3 Musculoskeletal: No gross abnormalities (Elena Fierro) PHYSICAL EXAM: General Impression: Alert and oriented x3, not in acute distress HEENT: Normocephalic atraumatic, extra-ocular movements intact, pupils equal and reactive to light bilaterally, mucous membranes moist. Cardiovascular: Heart regular rate and rhythm Chest: Able to complete full sentences, no retractions, no tachypnea Abdomen: abdomen soft, non-tender, non-distended, no organomegaly Musculoskeletal: Pulses present and equal in all extremities, no peripheral edema Motor: no focal deficits noted Neurological: CN II-XII grossly intact, no focal motor or sensory deficits noted Skin: Intact with no visualized rashes Psych: Normal affect and mood (Sabino Matson) Course Vital Signs 01/06/23 19:35 Temperature 98.9 F Pulse Rate 85 Respiratory 16 Rate Blood Pressure 112/78 O2 Sat by Pulse 95 Oximetry Medical Decision Making - Lab Data Result diagrams: 01/06/23 20:15 01/06/23 20:15 <Sabino Matson - Last Filed: 01/06/23 23:02> - Medical Decision Making Was pt. sent in by a medical professional or institution ([facility], FERMENTER HELPER, urgent care, hospital, or snf...) When possible be specific @ -No Did you speak to anyone other than the patient for history (EMS, parent, family, police, friend...)? What history was obtained from this source @ -No Did you review nursing and triage notes (agree or disagree)? Why? @ -I reviewed and agree with nursing and triage notes Were old charts reviewed (outside hosp., previous admission, EMS record, old EKG, old radiological studies, urgent care reports/EKG's, snf records)? Report findings @ -No old charts were reviewed Differential Diagnosis (chest pain, altered mental status, abdominal pain women, abdominal pain men, vaginal bleeding, musculoskeletal, weakness, fever, dyspnea, syncope, headache, dizziness, GI bleed, back pain, seizure, CVA, palpatations, mental health)? @ -Differential Seizure: Recurrent seizure disorder, febrile seizure, alcohol withdrawal, stimulants, meningitis, encephalitis, intercranial hemorrhage, intracranial tumor, stroke, eclampsia, thyrotoxicosis, hypocalcemia, hyponatremia, hypernatremia, hypomagnesemia, psychogenic, this is not meant to be an all-inclusive list. EKG interpreted by me (3pts min.). @ -My EKG interpretation: Ventricular rate 70, sinus rhythm,. 123, QRS 76, QTC 367. No KS prolongation, no QTC prolongation, no ST or T-wave changes noted. Overall, this EKG is unremarkable X-rays interpreted by me (1pt min.). @ -None done CT interpreted by me (1pt min.). @ -None done U/S interpreted by me (1pt. min.). @ -None done What testing was considered but not performed or refused? (CT, X-rays, U/S, labs)? Why? @ -None What meds were considered but not given or refused? Why? @ -None Did you discuss the management of the patient with other professionals (professionals i.e. [facility]edo, FERMENTER HELPER, lab, RT, psych nurse, health social work professor, mortuary beautician, teacher, medical scientific officer, porter sample case)? Give summary @ -No Was smoking cessation discussed for >3mins.? @ -No Was critical care preformed (if so, how long)? @ -No Were there social determinants of health that impacted care today? How? (H omelessness, low income, unemployed, alcoholism, drug addiction, transportation, low edu. Level, literacy, decrease access to med. care, correction, rehab)? @ -No Was there de-escalation of care discussed even if they declined (Discuss DNR or withdrawal of care, Hospice)? DNR status @ -No What co-morbidities impacted this encounter? (DM, HTN, Smoking, COPD, CAD, Cancer, CVA, ARF, Chemo, Hep., AIDS, mental health diagnosis, sleep apnea, morbid obesity)? @ -None Was patient admitted / discharged? Hospital course, mention meds given and route, prescriptions, significant lab abnormalities, going to OR and other pertinent info. @ -22-year-old female presents emergency department for medication refill she has history of seizure disorder. CT showed a seizure yesterday and also another seizure today for that. Vital signs are stable. Physical examination is benign. Laboratory evaluation is unremarkable. Patient given three-day refill of her clonazepam. She is advised to follow-up with her neurologist Undiagnosed new problem with uncertain prognosis? @ -No Drug Therapy requiring intensive monitoring for toxicity (Heparin, Nitro, Insulin, Cardizem)? @ -No Were any procedures done? @ -No Diagnosis/symptom? Acute, or Chronic, or Acute on Chronic? Uncomplicated (without systemic symptoms) or Complicated (systemic symptoms)? @ -Medication refill Side effects of treatment? @ -No Exacerbation, Progression, or Severe Exacerbation? @ -No Poses a threat to life or bodily function? How? (Chest pain, USA, VT, pneumonia, PE, COPD, DKA, ARF, appy, cholecystitis, CVA, Diverticulitis, Homicidal, Suicidal, threat to staff... and all critical care pts) @ -yes (Sabino Matson) - Lab Data Lab Results 01/06/23 01/06/23 01/06/23 Range/Units 19:38 20:15 20:15 WBC 11.0 H (3.8-10.6) k/uL RBC 4.93 (3.80-5.40) m/uL Hgb 15.0 (11.4-16.0) gm/dL Hct 45.0 (34.0-46.0) % MCV 91.2 (80.0-100.0) fL MCH 30.4 (25.0-35.0) pg MCHC 33.3 (31.0-37.0) g/dL RDW 13.1 (11.5-15.5) % Plt Count 317 (150-450) k/uL MPV 8.5 Neutrophils % 68 % Lymphocytes % 24 % Monocytes % 4 % Eosinophils % 1 % Basophils % 1 % Neutrophils # 7.4 (1.3-7.7) k/uL Lymphocytes # 2.6 (1.0-4.8) k/uL Monocytes # 0.5 (0-1.0) k/uL Eosinophils # 0.1 (0-0.7) k/uL Basophils # 0.1 (0-0.2) k/uL Sodium (137-145) mmol/L Potassium (3.5-5.1) mmol/L Chloride (98-107) mmol/L Carbon Dioxide (22-30) mmol/L Anion Gap mmol/L BUN (7-17) mg/dL Creatinine (0.52-1.04) mg/dL Est GFR (CKD-EPI)AfAm (>60 ml/min/1.73 sqM) Est GFR (CKD-EPI)NonAf (>60 ml/min/1.73 sqM) Glucose (74-99) mg/dL POC Glucose (mg/dL) 84 (70-110) mg/dL POC Glu Emergency Management Program Specialist ID [place] Plasma Lactic Acid Tad (0.7-2.0) mmol/L Calcium (8.4-10.2) mg/dL Magnesium (1.6-2.3) mg/dL Total Bilirubin (0.2-1.3) mg/dL AST (14-36) U/L ALT (4-34) U/L Alkaline Phosphatase (38-126) U/L Total Protein (6.3-8.2) g/dL Albumin (3.5-5.0) g/dL Urine Color Yellow Urine Appearance Slightly Cloudy H (Clear) Urine pH 5.5 (5.0-8.0) Ur Specific [place] 1.020 (1.001-1.035) Urine Protein Trace (Negative) Urine Glucose (UA) Negative (Negative) Urine Ketones 1+ (Negative) Urine Blood Small (Negative) Urine Nitrite Negative (Negative) Urine Bilirubin Negative (Negative) Urine Urobilinogen <2.0 (<2.0) mg/dL Ur Leukocyte Esterase Negative (Negative) Urine RBC 3 (0-5) /hpf Urine WBC 6 H (0-5) /hpf Ur Squamous Epith Cells 2 (0-4) /hpf Urine Mucus Many H (None) /hpf Urine HCG, Qual (Not Detectd) 01/06/23 01/06/23 01/06/23 Range/Units 20:15 20:15 20:15 WBC (3.8-10.6) k/uL RBC (3.80-5.40) m/uL Hgb (11.4-16.0) gm/dL Hct (34.0-46.0) % MCV (80.0-100.0) fL MCH (25.0-35.0) pg MCHC (31.0-37.0) g/dL RDW (11.5-15.5) % Plt Count (150-450) k/uL MPV Neutrophils % % Lymphocytes % % Monocytes % % Eosinophils % % Basophils % % Neutrophils # (1.3-7.7) k/uL Lymphocytes # (1.0-4.8) k/uL Monocytes # (0-1.0) k/uL Eosinophils # (0-0.7) k/uL Basophils # (0-0.2) k/uL Sodium 139 (137-145) mmol/L Potassium 4.4 (3.5-5.1) mmol/L Chloride 105 (98-107) mmol/L Carbon Dioxide 26 (22-30) mmol/L Anion Gap 8 mmol/L BUN 13 (7-17) mg/dL Creatinine 0.78 (0.52-1.04) mg/dL Est GFR (CKD-EPI)AfAm >90 (>60 ml/min/1.73 sqM) Est GFR (CKD-EPI)NonAf >90 (>60 ml/min/1.73 sqM) Glucose 91 (74-99) mg/dL POC Glucose (mg/dL) (70-110) mg/dL POC Glu Emergency Management Program Specialist ID Plasma Lactic Acid Tad 0.7 (0.7-2.0) mmol/L Calcium 9.9 (8.4-10.2) mg/dL Magnesium 2.0 (1.6-2.3) mg/dL Total Bilirubin 0.6 (0.2-1.3) mg/dL AST 29 (14-36) U/L ALT 28 (4-34) U/L Alkaline Phosphatase 86 (38-126) U/L Total Protein 7.6 (6.3-8.2) g/dL Albumin 4.6 (3.5-5.0) g/dL Urine Color Urine Appearance (Clear) Urine pH (5.0-8.0) Ur Specific [place] (1.001-1.035) Urine Protein (Negative) Urine Glucose (UA) (Negative) Urine Ketones (Negative) Urine Blood (Negative) Urine Nitrite (Negative) Urine Bilirubin (Negative) Urine Urobilinogen (<2.0) mg/dL Ur Leukocyte Esterase (Negative) Urine RBC (0-5) /hpf Urine WBC (0-5) /hpf Ur Squamous Epith Cells (0-4) /hpf Urine Mucus (None) /hpf Urine HCG, Qual Not Detected (Not Detectd) Disposition <Elena Fierro - Last Filed: 01/06/23 20:10> Is patient prescribed a controlled substance at d/c from ED?: Yes If prescribed controlled substance>3 days was MAPS reviewed?: Prescribed <3 Days Time of Disposition: 22:42 <Sabino Matson - Last Filed: 01/06/23 23:02> Clinical Impression: Medication refill Disposition: HOME SELF-CARE Condition: Good Instructions (If sedation given, give patient instructions): Recurrent Seizures in Adults (ED) Prescriptions: clonazePAM 0.5 mg PO DAILY 3 Days #3 tab Referrals: Kelly Self DO [Primary Care Provider] - 1-2 days
[2023-01-06 20:39] LABS: Basophils # (A) 0.1 k/uL (0-0.2); Basophils % (A) 1 %; Eosinophils # (A) 0.1 k/uL (0-0.7); Eosinophils % (A) 1 %; Lymphocytes # (A) 2.6 k/uL (1.0-4.8); Lymphocytes % (A) 24 %; MCH 30.4 pg (25.0-35.0); MCHC 33.3 g/dL (31.0-37.0); MCV 91.2 fL (80.0-100.0); Mean Platelet Volume 8.5; Monocytes # (A) 0.5 k/uL (0-1.0); Monocytes % (A) 4 %; Neutrophils # (A) 7.4 k/uL (1.3-7.7); Neutrophils % (A) 68 %; Platelet Count 317 k/uL (150-450); RBC 4.93 m/uL (3.80-5.40); RDW 13.1 % (11.5-15.5)
[2023-01-06 20:59] LABS: Appearance,Urine Slightly Cloudy (Clear); Bilirubin,Urine Negative (Negative); Blood,Urine Small (Negative); Color,Urine Yellow; Glucose,Urine (UA) Negative (Negative); Ketones,Urine 1+ (Negative); Leukocyte Esterase,Urine Negative (Negative); Nitrite,Urine Negative (Negative); PH, Urine 5.5 (5.0-8.0); Protein,Urine Trace (Negative); Urobilinogen,Urine <2.0 mg/dL (<2.0)
[2023-01-06 21:00] LABS: ALT 28 U/L (4-34); AST 29 U/L (14-36); African American GFR (CKD) >90 (>60 ml/min/1.73 sqM); Albumin 4.6 g/dL (3.5-5.0); Alkaline Phosphatase 86 U/L (38-126); Anion Gap 8 mmol/L; Blood Urea Nitrogen 13 mg/dL (7-17); Calcium 9.9 mg/dL (8.4-10.2); Carbon Dioxide 26 mmol/L (22-30); Chloride 105 mmol/L (98-107); Glucose 91 mg/dL (74-99); Mucus,Urine Many /hpf; Non-African American GFR(CKD) >90 (>60 ml/min/1.73 sqM); Potassium 4.4 mmol/L (3.5-5.1); RBC,Urine 3 /hpf (0-5); Sodium 139 mmol/L (137-145); Squamous Epithelial Cell,Urine 2 /hpf (0-4); Total Bilirubin 0.6 mg/dL (0.2-1.3); Total Protein 7.6 g/dL (6.3-8.2); WBC,Urine 6 /hpf (0-5)
[2023-01-06] MEDS ORDERED: clonazePAM 0.5 MG TAB PO STA (23:03)
== END 2023-01-06 23:12 | disposition home or self-care (01) ==
LOC: EC 19:14
DX: Z76.0 Encounter for issue of repeat prescription (principal); G40.909 Epilepsy, unspecified, not intractable, without status epilepticus; F41.9 Anxiety disorder, unspecified; F31.9 Bipolar disorder, unspecified; F17.290 Nicotine dependence, other tobacco product, uncomplicated; Z79.899 Other long term (current) drug therapy
CPT/HCPCS: 36415; 80053; 81001; 81025; 83605; 83735; 85025; 93005; 99284

== ENCOUNTER 2023-03-11 13:34 | Inpatient (IN) | payer MEDICAID, OTHER ==
[2023-03-11 14:20] LABS: Basophils % (A) 1 %; Eosinophils # (A) 0.2 k/uL (0-0.7); Eosinophils % (A) 3 %; HCT 41.6 % (34.0-46.0); Lymphocytes # (A) 1.4 k/uL (1.0-4.8); Lymphocytes % (A) 22 %; MCH 30.7 pg (25.0-35.0); MCHC 33.7 g/dL (31.0-37.0); MCV 91.3 fL (80.0-100.0); Mean Platelet Volume 8.4; Monocytes # (A) 0.5 k/uL (0-1.0); Monocytes % (A) 8 %; Neutrophils # (A) 3.9 k/uL (1.3-7.7); Neutrophils % (A) 63 %; Platelet Count 223 k/uL (150-450); RBC 4.56 m/uL (3.80-5.40); RDW 12.5 % (11.5-15.5); WBC 6.2 k/uL (3.8-10.6)
[2023-03-11 14:24] LABS: ALT 20 U/L (4-34); AST 24 U/L (14-36); Acetaminophen <10.0 ug/mL; African American GFR (CKD) >90 (>60 ml/min/1.73 sqM); Albumin 4.2 g/dL (3.5-5.0); Alcohol <10 mg/dL; Alkaline Phosphatase 88 U/L (38-126); Anion Gap 13 mmol/L; Blood Urea Nitrogen 6 mg/dL (7-17); Calcium 9.1 mg/dL (8.4-10.2); Carbon Dioxide 24 mmol/L (22-30); Chloride 104 mmol/L (98-107); Glucose 84 mg/dL (74-99); Non-African American GFR(CKD) >90 (>60 ml/min/1.73 sqM); Potassium 3.5 mmol/L (3.5-5.1); Salicylate <1.0 mg/dL; Sodium 141 mmol/L (137-145); Total Bilirubin 0.5 mg/dL (0.2-1.3); Total Protein 6.9 g/dL (6.3-8.2)
--- NOTE | 2023-03-11 15:37 | ED ---
Psych HPI - General Source: patient, family, RN notes reviewed Mode of arrival: ambulatory Limitations: no limitations <Zhou Crenshaw - Last Filed: 03/11/23 16:01> - History of Present Illness MD Complaint: suicidal ideation, feels depressed -: hour(s) Associated Psychiatric Symptoms: depression, suicidal ideation History of same: Yes Quality: constant Improves With: none Worsens With: none Context: significant life stressor Associated Symptoms: denies other symptoms Treatments Prior to Arrival: placed on mental health hold If Self Harm: admits thoughts of self harm <Petr De Leon - Last Filed: 03/11/23 20:19> - General Chief Complaint: Psychiatric Symptoms Stated Complaint: overdose Time Seen by Provider: 03/11/23 13:54 - History of Present Illness Initial Comments: 22-year-old female presents emergency Department chief complaint of depression, drug overdose. Patient states that she's been having building symptoms in which she states she does reach a breaking point today states that she took approximately 10-11 0.5 Klonopin, 5 300 mg Trileptal tablets. Patient states she prescribe these medications. Patient does have a history of seizures. Patient states that she is is just really depressed. Patient states he also found out she is states that she had a menstrual cycle 4 weeks ago. (Zhou Crenshaw) 22 female to the emergency department for evaluation of overdose and psychiatric illness (Petr De Leon) - Related Data Home Medications Medication Instructions Recorded Confirmed OXcarbazepine [Trileptal] 300 mg PO BID 03/11/23 03/11/23 clonazePAM 0.5 mg PO BID PRN 03/11/23 03/11/23 Allergies Allergy/AdvReac Type Severity Reaction Status Date / Time No Known Allergies Allergy Verified 03/11/23 14:09 Review of Systems ROS Other: All systems not noted in ROS Statement are negative. <Zhou Crenshaw - Last Filed: 03/11/23 16:01> ROS Other: All systems not noted in ROS Statement are negative. <Petr De Leon - Last Filed: 03/11/23 20:19> ROS Statement: Those systems with pertinent positive or pertinent negative responses have been documented in the HPI. Past Medical History Past Medical History: Seizure Disorder Additional Past Medical History / Comment(s): ovarian cysts. HX MICRO SEIZURES- LAST ONE OVER A YEAR AGO-(HAS THEM IN HER SLEEP). PASSED OUT END OF AUGUST AND LOSS BLADDER CONTROL History of Any Multi-Drug Resistant Organisms: None Reported Past Surgical History: No Surgical Hx Reported Additional Past Surgical History / Comment(s): COLONOSCOPY/EGD Past Anesthesia/Blood Transfusion Reactions: No Reported Reaction Past Psychological History: Anxiety, Bipolar, Depression Smoking Status: Vaper Past Alcohol Use History: Occasional Past Drug Use History: None Reported - Past Family History Mother Family Medical History: Cancer, Deep Vein Thrombosis (DVT) <Zhou Crenshaw - Last Filed: 03/11/23 16:01> General Exam Limitations: no limitations General appearance: alert, in no apparent distress Head exam: Present: atraumatic, normocephalic, normal inspection Eye exam: Present: normal appearance, PERRL, EOMI. Absent: scleral icterus, conjunctival injection, periorbital swelling ENT exam: Present: normal exam, normal oropharynx, mucous membranes moist Neck exam: Present: normal inspection, full ROM. Absent: tenderness, meningismus, lymphadenopathy Respiratory exam: Present: normal lung sounds bilaterally. Absent: respiratory distress, wheezes, rales, rhonchi, stridor Cardiovascular Exam: Present: regular rate, normal rhythm, normal heart sounds. Absent: systolic murmur, diastolic murmur, rubs, gallop, clicks GI/Abdominal exam: Present: soft, normal bowel sounds. Absent: distended, tenderness, guarding, rebound, rigid Neurological exam: Present: alert, oriented X3, CN II-XII intact Psychiatric exam: Present: depressed, flat affect Skin exam: Present: warm, dry, intact, normal color. Absent: rash <Zhou Crenshaw M - Last Filed: 03/11/23 16:01> General appearance: alert, in no apparent distress Head exam: Present: atraumatic, normocephalic, normal inspection Eye exam: Present: normal appearance, PERRL, EOMI. Absent: scleral icterus, conjunctival injection, periorbital swelling ENT exam: Present: normal exam, mucous membranes moist Neck exam: Present: normal inspection. Absent: tenderness, meningismus, lymphadenopathy Respiratory exam: Present: normal lung sounds bilaterally. Absent: respiratory distress, wheezes, rales, rhonchi, stridor Cardiovascular Exam: Present: regular rate, normal rhythm, normal heart sounds. Absent: systolic murmur, diastolic murmur, rubs, gallop, clicks GI/Abdominal exam: Present: soft, normal bowel sounds. Absent: distended, tenderness, guarding, rebound, rigid Extremities exam: Present: normal inspection, full ROM, normal capillary refill. Absent: tenderness, pedal edema, joint swelling, calf tenderness Back exam: Present: normal inspection Neurological exam: Present: alert, oriented X3, CN II-XII intact Psychiatric exam: Present: normal affect, normal mood Skin exam: Present: warm, dry, intact, normal color. Absent: rash <Petr De Leon - Last Filed: 03/11/23 20:19> Course <Petr De Leon - Last Filed: 03/11/23 20:19> Vital Signs 03/11/23 03/11/23 13:39 14:35 Temperature 98 F Pulse Rate 87 93 Respiratory 18 18 Rate Blood Pressure 107/76 101/79 O2 Sat by Pulse 100 99 Oximetry - Reevaluation(s) Reevaluation #1: Record is reviewed (Petr De Leon) Reevaluation #2: 2. For psychiatric evaluation (Petr De Leon) Medical Decision Making - Lab Data Result diagrams: 03/11/23 14:00 03/11/23 14:00 - EKG Data -: EKG Interpreted by Mn <Zhou Crenshaw - Last Filed: 03/11/23 16:01> - Lab Data Result diagrams: 03/11/23 14:00 03/11/23 14:00 <Petr De Leon - Last Filed: 03/11/23 20:19> - Medical Decision Making 22 female to the ER for evaluation psychiatric illness and patient will be admitted for psychiatric evaluation and trearment (Petr De Leon) - Lab Data Lab Results 03/11/23 03/11/23 03/11/23 Range/Units 14:00 14:00 14:00 WBC 6.2 (3.8-10.6) k/uL RBC 4.56 (3.80-5.40) m/uL Hgb 14.0 (11.4-16.0) gm/dL Hct 41.6 (34.0-46.0) % MCV 91.3 (80.0-100.0) fL MCH 30.7 (25.0-35.0) pg MCHC 33.7 (31.0-37.0) g/dL RDW 12.5 (11.5-15.5) % Plt Count 223 (150-450) k/uL MPV 8.4 Neutrophils % 63 % Lymphocytes % 22 % Monocytes % 8 % Eosinophils % 3 % Basophils % 1 % Neutrophils # 3.9 (1.3-7.7) k/uL Lymphocytes # 1.4 (1.0-4.8) k/uL Monocytes # 0.5 (0-1.0) k/uL Eosinophils # 0.2 (0-0.7) k/uL Basophils # 0.0 (0-0.2) k/uL PT (10.0-12.5) sec INR (<1.2) Sodium (137-145) mmol/L Potassium (3.5-5.1) mmol/L Chloride (98-107) mmol/L Carbon Dioxide (22-30) mmol/L Anion Gap mmol/L BUN (7-17) mg/dL Creatinine (0.52-1.04) mg/dL Est GFR (CKD-EPI)AfAm (>60 ml/min/1.73 sqM) Est GFR (CKD-EPI)NonAf (>60 ml/min/1.73 sqM) Glucose (74-99) mg/dL Calcium (8.4-10.2) mg/dL Magnesium (1.6-2.3) mg/dL Total Bilirubin (0.2-1.3) mg/dL AST (14-36) U/L ALT (4-34) U/L Alkaline Phosphatase (38-126) U/L Total Protein (6.3-8.2) g/dL Albumin (3.5-5.0) g/dL Urine Color Yellow Urine Appearance Clear (Clear) Urine pH 6.5 (5.0-8.0) Ur Specific [place] 1.016 (1.001-1.035) Urine Protein Negative (Negative) Urine Glucose (UA) Negative (Negative) Urine Ketones 1+ H (Negative) Urine Blood Small H (Negative) Urine Nitrite Negative (Negative) Urine Bilirubin Negative (Negative) Urine Urobilinogen <2.0 (<2.0) mg/dL Ur Leukocyte Esterase Negative (Negative) Urine RBC 9 H (0-5) /hpf Urine WBC 2 (0-5) /hpf Ur Squamous Epith Cells 2 (0-4) /hpf Urine Mucus Many H (None) /hpf Urine HCG, Qual Not Detected (Not Detectd) Salicylates mg/dL Urine Opiates Screen Not Detected (NotDetected) Ur Oxycodone Screen Not Detected (NotDetected) Urine Methadone Screen Not Detected (NotDetected) Acetaminophen ug/mL Ur Barbiturates Screen Not Detected (NotDetected) U Tricyclic Antidepress Not Detected (NotDetected) Ur Phencyclidine Scrn Not Detected (NotDetected) Ur Amphetamines Screen Not Detected (NotDetected) U Methamphetamines Scrn Not Detected (NotDetected) U Benzodiazepines Scrn Not Detected (NotDetected) Urine Cocaine Screen Not Detected (NotDetected) U Marijuana (THC) Screen Not Detected (NotDetected) Serum Alcohol mg/dL SARS-CoV-2 (PCR) (Not Detectd) 03/11/23 03/11/23 03/11/23 Range/Units 14:00 14:00 15:10 WBC (3.8-10.6) k/uL RBC (3.80-5.40) m/uL Hgb (11.4-16.0) gm/dL Hct (34.0-46.0) % MCV (80.0-100.0) fL MCH (25.0-35.0) pg MCHC (31.0-37.0) g/dL RDW (11.5-15.5) % Plt Count (150-450) k/uL MPV Neutrophils % % Lymphocytes % % Monocytes % % Eosinophils % % Basophils % % Neutrophils # (1.3-7.7) k/uL Lymphocytes # (1.0-4.8) k/uL Monocytes # (0-1.0) k/uL Eosinophils # (0-0.7) k/uL Basophils # (0-0.2) k/uL PT 12.1 (10.0-12.5) sec INR 1.1 (<1.2) Sodium 141 (137-145) mmol/L Potassium 3.5 (3.5-5.1) mmol/L Chloride 104 (98-107) mmol/L Carbon Dioxide 24 (22-30) mmol/L Anion Gap 13 mmol/L BUN 6 L (7-17) mg/dL Creatinine 0.65 (0.52-1.04) mg/dL Est GFR (CKD-EPI)AfAm >90 (>60 ml/min/1.73 sqM) Est GFR (CKD-EPI)NonAf >90 (>60 ml/min/1.73 sqM) Glucose 84 (74-99) mg/dL Calcium 9.1 (8.4-10.2) mg/dL Magnesium 1.9 (1.6-2.3) mg/dL Total Bilirubin 0.5 (0.2-1.3) mg/dL AST 24 (14-36) U/L ALT 20 (4-34) U/L Alkaline Phosphatase 88 (38-126) U/L Total Protein 6.9 (6.3-8.2) g/dL Albumin 4.2 (3.5-5.0) g/dL Urine Color Urine Appearance (Clear) Urine pH (5.0-8.0) Ur Specific [place] (1.001-1.035) Urine Protein (Negative) Urine Glucose (UA) (Negative) Urine Ketones (Negative) Urine Blood (Negative) Urine Nitrite (Negative) Urine Bilirubin (Negative) Urine Urobilinogen (<2.0) mg/dL Ur Leukocyte Esterase (Negative) Urine RBC (0-5) /hpf Urine WBC (0-5) /hpf Ur Squamous Epith Cells (0-4) /hpf Urine Mucus (None) /hpf Urine HCG, Qual (Not Detectd) Salicylates <1.0 mg/dL Urine Opiates Screen (NotDetected) Ur Oxycodone Screen (NotDetected) Urine Methadone Screen (NotDetected) Acetaminophen <10.0 ug/mL Ur Barbiturates Screen (NotDetected) U Tricyclic Antidepress (NotDetected) Ur Phencyclidine Scrn (NotDetected) Ur Amphetamines Screen (NotDetected) U Methamphetamines Scrn (NotDetected) U Benzodiazepines Scrn (NotDetected) Urine Cocaine Screen (NotDetected) U Marijuana (THC) Screen (NotDetected) Serum Alcohol <10 mg/dL SARS-CoV-2 (PCR) (Not Detectd) 03/11/23 Range/Units 18:28 WBC (3.8-10.6) k/uL RBC (3.80-5.40) m/uL Hgb (11.4-16.0) gm/dL Hct (34.0-46.0) % MCV (80.0-100.0) fL MCH (25.0-35.0) pg MCHC (31.0-37.0) g/dL RDW (11.5-15.5) % Plt Count (150-450) k/uL MPV Neutrophils % % Lymphocytes % % Monocytes % % Eosinophils % % Basophils % % Neutrophils # (1.3-7.7) k/uL Lymphocytes # (1.0-4.8) k/uL Monocytes # (0-1.0) k/uL Eosinophils # (0-0.7) k/uL Basophils # (0-0.2) k/uL PT (10.0-12.5) sec INR (<1.2) Sodium (137-145) mmol/L Potassium (3.5-5.1) mmol/L Chloride (98-107) mmol/L Carbon Dioxide (22-30) mmol/L Anion Gap mmol/L BUN (7-17) mg/dL Creatinine (0.52-1.04) mg/dL Est GFR (CKD-EPI)AfAm (>60 ml/min/1.73 sqM) Est GFR (CKD-EPI)NonAf (>60 ml/min/1.73 sqM) Glucose (74-99) mg/dL Calcium (8.4-10.2) mg/dL Magnesium (1.6-2.3) mg/dL Total Bilirubin (0.2-1.3) mg/dL AST (14-36) U/L ALT (4-34) U/L Alkaline Phosphatase (38-126) U/L Total Protein (6.3-8.2) g/dL Albumin (3.5-5.0) g/dL Urine Color Urine Appearance (Clear) Urine pH (5.0-8.0) Ur Specific [place] (1.001-1.035) Urine Protein (Negative) Urine Glucose (UA) (Negative) Urine Ketones (Negative) Urine Blood (Negative) Urine Nitrite (Negative) Urine Bilirubin (Negative) Urine Urobilinogen (<2.0) mg/dL Ur Leukocyte Esterase (Negative) Urine RBC (0-5) /hpf Urine WBC (0-5) /hpf Ur Squamous Epith Cells (0-4) /hpf Urine Mucus (None) /hpf Urine HCG, Qual (Not Detectd) Salicylates mg/dL Urine Opiates Screen (NotDetected) Ur Oxycodone Screen (NotDetected) Urine Methadone Screen (NotDetected) Acetaminophen ug/mL Ur Barbiturates Screen (NotDetected) U Tricyclic Antidepress (NotDetected) Ur Phencyclidine Scrn (NotDetected) Ur Amphetamines Screen (NotDetected) U Methamphetamines Scrn (NotDetected) U Benzodiazepines Scrn (NotDetected) Urine Cocaine Screen (NotDetected) U Marijuana (THC) Screen (NotDetected) Serum Alcohol mg/dL SARS-CoV-2 (PCR) Not Detected (Not Detectd) - EKG Data EKG Comments: EKG performed at 14:06 sinus rhythm with a rate of 96 [place] 116 QRS 93 QT/QTC 345/399 (Zhou Crenshaw) Disposition <Zhou Crenshaw - Last Filed: 03/11/23 16:01> Is patient prescribed a controlled substance at d/c from ED?: No <Petr De Leon - Last Filed: 03/11/23 20:19> Clinical Impression: Psychosis, Acute psychosis, Drug-induced psychotic disorder, Suicidal ideation, Attempted suicide Disposition: TRANSFER TO PSYCH HOSP/UNIT Condition: Fair Referrals: Kelly Self DO [Primary Care Provider] - 1-2 days
[2023-03-11 15:52] LABS: INR 1.1 (<1.2); Prothrombin Time 12.1 sec (10.0-12.5)
[2023-03-11 18:50] LABS: Appearance,Urine Clear (Clear); Bilirubin,Urine Negative (Negative); Blood,Urine Small (Negative); Color,Urine Yellow; Glucose,Urine (UA) Negative (Negative); Ketones,Urine 1+ (Negative); Leukocyte Esterase,Urine Negative (Negative); Mucus,Urine Many /hpf; Nitrite,Urine Negative (Negative); PH, Urine 6.5 (5.0-8.0); Protein,Urine Negative (Negative); RBC,Urine 9 /hpf (0-5); Specific Gravity,Urine 1.016 (1.001-1.035); Squamous Epithelial Cell,Urine 2 /hpf (0-4); Urobilinogen,Urine <2.0 mg/dL (<2.0); WBC,Urine 2 /hpf (0-5)
[2023-03-11 19:35] LABS: Amphetamine Screen,Urine Not Detected (NotDetected); Barbiturate Screen,Urine Not Detected (NotDetected); Benzodiazepines Screen,Urine Not Detected (NotDetected); Cocaine Screen,Urine Not Detected (NotDetected); Methadone Screen, Urine Not Detected (NotDetected); Opiate Screen,Urine Not Detected (NotDetected); Oxycodone Screen, Urine Not Detected (NotDetected); Phencyclidine Screen,Urine Not Detected (NotDetected); Tricyclic Antidepressant,Urine Not Detected (NotDetected); Urn Cannabinoid Scrn Not Detected (NotDetected)
[2023-03-11] MEDS ORDERED: MAGNESIUM HYDROXIDE 2,400 MG/30 ML CUP PO PRN (21:04)
[2023-03-11] MEDS ORDERED: ACETAMINOPHEN TAB 325 MG TAB PO PRN (21:04)
[2023-03-11] MEDS ORDERED: MAG HYDROX/AL HYDROX/SIMETH 30 ML CUP PO PRN (21:04)
[2023-03-11] MEDS ORDERED: LORazepam 2 MG/ML INJ IM PRN (21:07)
[2023-03-11] MEDS ORDERED: HALOPERIDOL LACTATE 5 MG/ML 1 ML VIAL IM PRN (21:07)
[2023-03-11] MEDS ORDERED: haloperidoL 5 MG TAB PO PRN (21:07)
--- NOTE | 2023-03-12 04:19 | P.MDCNMH ---
History of Present Illness H&P Date: 03/12/23 Chief Complaint: medical eval 22 year old female with epilepsy patient coming in for evaluation of depression , she claimed that she OD on klonopin and trileptal . however, she also mentioned that she had a breakthrough seizure about 2 weeks ago , due to not having any of her meds due to insurance gap. when asked what type of seizure , she reported Micro seizures. when I asked to describe that, she explained acute Grand mal seizure. then she got upset, rolling her eyes, and giving me very limited answers. she mentioned to the ED department that she believed she is as her last menstrual cycle was 4 weeks ago , urine test was negative in the ED. she denies any fever, chills, cough, sore throat, chest pain , trouble breathing , nausea , vomiting, abd pain , changes in urinary or bowel habits. admits to vaping , denies any drugs or heavy alcohol review of systems Pertinent positives as noted in HPI. All other systems were reviewed and are negative on exam Constitutional: No acute distress, Eyes: Anicteric sclerae, moist conjunctiva, Pupils equal round reactive to light ENMT: NC/AT Oropharynx clear, no erythema, or exudates Neck: Supple, no masses, or JVD Lungs: Clear to auscultation Clear to percussion Normal respiratory effort, no accessory muscle use Cardiovascular: Heart regular in rate and rhythm, No murmurs, gallops, or rubs No peripheral edema Extremities: No digital cyanosis No clubbing Pedal pulses intact and symmetrical Radial pulses intact and symmetrical No calf tenderness Psychiatric: Alert and oriented to person, place and time Neuro Muscles Strength 5/5 in all 4 extremities Past Medical History Past Medical History: Seizure Disorder Additional Past Medical History / Comment(s): ovarian cysts. HX MICRO SEIZURES- LAST ONE OVER A YEAR AGO-(HAS THEM IN HER SLEEP). PASSED OUT END OF AUGUST AND LOSS BLADDER CONTROL History of Any Multi-Drug Resistant Organisms: None Reported Past Surgical History: No Surgical Hx Reported Additional Past Surgical History / Comment(s): COLONOSCOPY/EGD Past Anesthesia/Blood Transfusion Reactions: No Reported Reaction Past Psychological History: Anxiety, Bipolar, Depression Smoking Status: Vaper Past Alcohol Use History: Occasional Past Drug Use History: None Reported - Past Family History Mother Family Medical History: Cancer, Deep Vein Thrombosis (DVT) Medications and Allergies Home Medications Medication Instructions Recorded Confirmed Type OXcarbazepine [Trileptal] 300 mg PO BID 03/11/23 03/11/23 History clonazePAM 0.5 mg PO BID PRN 03/11/23 03/11/23 History Allergies Allergy/AdvReac Type Severity Reaction Status Date / Time No Known Allergies Allergy Verified 03/11/23 14:09 Physical Exam Vitals: Vital Signs Temp Pulse Pulse Resp BP BP Pulse Ox 03/11/23 22:19 98.4 F 106 H 18 96/60 96 03/11/23 14:35 93 18 101/79 99 03/11/23 13:39 98 F 87 18 107/76 100 Intake and Output 03/11/23 03/11/23 03/12/23 14:59 22:59 06:59 Other: Weight 68.039 kg 67.188 kg Cranial Nerve Examination - Cranial Nerves Cranial Nerve II- Optic: Intact Cranial Nerve III- Oculomotor: Intact Cranial Nerve IV- Trochlear: Intact Cranial Nerve V- Trigeminal: Intact Cranial Nerve - Abducens: Intact Cranial Nerve VII- Facial: Intact Cranial Nerve VIII- Auditory: Intact Cranial Nerve IX- Glossopharyngeal: Intact Cranial Nerve X- Vagus: Intact Cranial Nerve XI- Accessory: Intact Cranial Nerve XII- Hypoglossal: Intact Results CBC & Chem 7: 03/11/23 14:00 03/11/23 14:00 Labs: Abnormal Lab Results - Last 24 Hours (Table) 03/11/23 03/11/23 Range/Units 14:00 14:00 BUN 6 L (7-17) mg/dL Urine Ketones 1+ H (Negative) Urine Blood Small H (Negative) Urine RBC 9 H (0-5) /hpf Urine Mucus Many H (None) /hpf Assessment and Plan Assessment: depression management per psych questionable drug overdose on klonopin and trileptal patient also mentioned that she had a breakthrough seizure as she did not have any of her medications due to insurance gap breakthrough seizure , history of epilepsy "Micro seizures" continue trileptal seizure precautions blood work reviewed unremarkable Hgb 14, WBC 6 Na 141 K 3.5 BUN 6 cr 0.65 urine test negative urine drug screen negative stable from medical stand point thank you for this consultation
[2023-03-12] MEDS: OXcarbazepine 300 MG TAB PO SCH ×2 (09:14→20:47)
[2023-03-12] MEDS: NICOTINE 14MG/24HR PATCH TRANSDERM SCH (09:18)
--- NOTE | 2023-03-12 12:14 | P.HP ---
Psychiatric H&P - . H&P Date: 03/12/23 History & Physical: Allergies Allergy/AdvReac Type Severity Reaction Status Date / Time No Known Allergies Allergy Verified 03/11/23 14:09 Vital Signs Temp 98.4 F 03/11/23 22:19 Pulse 106 H 03/11/23 22:19 Resp 18 03/11/23 22:19 BP 96/60 03/11/23 22:19 Pulse Ox 96 03/11/23 22:19 FiO2 Intake & Output 03/11/23 03/12/23 03/12/23 18:59 06:59 18:59 Weight 68.039 kg 67.188 kg Laboratory Last Values WBC 6.2 k/uL (3.8-10.6) 03/11/23 14:00 RBC 4.56 m/uL (3.80-5.40) 03/11/23 14:00 Hgb 14.0 gm/dL (11.4-16.0) 03/11/23 14:00 Hct 41.6 % (34.0-46.0) 03/11/23 14:00 MCV 91.3 fL (80.0-100.0) 03/11/23 14:00 MCH 30.7 pg (25.0-35.0) 03/11/23 14:00 MCHC 33.7 g/dL (31.0-37.0) 03/11/23 14:00 RDW 12.5 % (11.5-15.5) 03/11/23 14:00 Plt Count 223 k/uL (150-450) 03/11/23 14:00 MPV 8.4 03/11/23 14:00 Neutrophils % 63 % 03/11/23 14:00 Lymphocytes % 22 % 03/11/23 14:00 Monocytes % 8 % 03/11/23 14:00 Eosinophils % 3 % 03/11/23 14:00 Basophils % 1 % 03/11/23 14:00 Neutrophils # 3.9 k/uL (1.3-7.7) 03/11/23 14:00 Lymphocytes # 1.4 k/uL (1.0-4.8) 03/11/23 14:00 Monocytes # 0.5 k/uL (0-1.0) 03/11/23 14:00 Eosinophils # 0.2 k/uL (0-0.7) 03/11/23 14:00 Basophils # 0.0 k/uL (0-0.2) 03/11/23 14:00 PT 12.1 sec (10.0-12.5) 03/11/23 15:10 INR 1.1 (<1.2) 03/11/23 15:10 Sodium 141 mmol/L (137-145) 03/11/23 14:00 Potassium 3.5 mmol/L (3.5-5.1) 03/11/23 14:00 Chloride 104 mmol/L (98-107) 03/11/23 14:00 Carbon Dioxide 24 mmol/L (22-30) 03/11/23 14:00 Anion Gap 13 mmol/L 03/11/23 14:00 BUN 6 mg/dL (7-17) L 03/11/23 14:00 Creatinine 0.65 mg/dL (0.52-1.04) 03/11/23 14:00 Est GFR (CKD-EPI)AfAm >90 (>60 ml/min/1.73 sqM) 03/11/23 14:00 Est GFR (CKD-EPI)NonAf >90 (>60 ml/min/1.73 sqM) 03/11/23 14:00 Glucose 84 mg/dL (74-99) 03/11/23 14:[address] Glu mg/dL 97 mg/dL 03/11/23 14:00 Hemoglobin A1c 5.0 % (<=6.0) 03/11/23 14:00 Calcium 9.1 mg/dL (8.4-10.2) 03/11/23 14:00 Magnesium 1.9 mg/dL (1.6-2.3) 03/11/23 14:00 Total Bilirubin 0.5 mg/dL (0.2-1.3) 03/11/23 14:00 AST 24 U/L (14-36) 03/11/23 14:00 ALT 20 U/L (4-34) 03/11/23 14:00 Alkaline Phosphatase 88 U/L (38-126) 03/11/23 14:00 Total Protein 6.9 g/dL (6.3-8.2) 03/11/23 14:00 Albumin 4.2 g/dL (3.5-5.0) 03/11/23 14:00 TSH 0.620 mIU/L (0.465-4.680) 03/11/23 14:00 Urine Color Yellow 03/11/23 14:00 Urine Appearance Clear (Clear) 03/11/23 14:00 Urine pH 6.5 (5.0-8.0) 03/11/23 14:00 Ur Specific [place] 1.016 (1.001-1.035) 03/11/23 14:00 Urine Protein Negative (Negative) 03/11/23 14:00 Urine Glucose (UA) Negative (Negative) 03/11/23 14:00 Urine Ketones 1+ (Negative) H 03/11/23 14:00 Urine Blood Small (Negative) H 03/11/23 14:00 Urine Nitrite Negative (Negative) 03/11/23 14:00 Urine Bilirubin Negative (Negative) 03/11/23 14:00 Urine Urobilinogen <2.0 mg/dL (<2.0) 03/11/23 14:00 Ur Leukocyte Esterase Negative (Negative) 03/11/23 14:00 Urine RBC 9 /hpf (0-5) H 03/11/23 14:00 Urine WBC 2 /hpf (0-5) 03/11/23 14:00 Ur Squamous Epith Cells 2 /hpf (0-4) 03/11/23 14:00 Urine Mucus Many /hpf (None) H 03/11/23 14:00 Urine HCG, Qual Not Detected (Not Detectd) 03/11/23 14:00 Salicylates <1.0 mg/dL 03/11/23 14:00 Urine Opiates Screen Not Detected (NotDetected) 03/11/23 14:00 Ur Oxycodone Screen Not Detected (NotDetected) 03/11/23 14:00 Urine Methadone Screen Not Detected (NotDetected) 03/11/23 14:00 Acetaminophen <10.0 ug/mL 03/11/23 14:00 Ur Barbiturates Screen Not Detected (NotDetected) 03/11/23 14:00 Oxcarbazepine 5.7 ug/mL (10-35) L 03/11/23 13:56 U Tricyclic Antidepress Not Detected (NotDetected) 03/11/23 14:00 Ur Phencyclidine Scrn Not Detected (NotDetected) 03/11/23 14:00 Ur Amphetamines Screen Not Detected (NotDetected) 03/11/23 14:00 U Methamphetamines Scrn Not Detected (NotDetected) 03/11/23 14:00 U Benzodiazepines Scrn Not Detected (NotDetected) 03/11/23 14:00 Urine Cocaine Screen Not Detected (NotDetected) 03/11/23 14:00 U Marijuana (THC) Screen Not Detected (NotDetected) 03/11/23 14:00 Serum Alcohol <10 mg/dL 03/11/23 14:00 SARS-CoV-2 (PCR) Not Detected (Not Detectd) 03/11/23 18:28 03/12/23 12:04 This is a psychiatric assessment on Alaina Gutiérrez who is a 22-year-old female with long history of mental illness Patient has been diagnosed with bipolar disorder seizure disorder and borderline personality disorder in the past Patient reports that she was hospitalized when she was about 11 years old but did not give any details She currently presents stating that;'' everyone wants everything from me'' She would not elaborate as to what she meant by that but states that everyone is trying to get things from her She reports that her cousins and family members are also very demanding She says that she currently lives with her biological parents She said that she was in a relationship and that they have split up since then and that they have a 2-year-old child Staff however reported give information that the patient's child had told the patient that she prefers her ex-boyfriend's new girlfriend as a new mom which made her feel depressed and rejected Patient had claimed that she had overdosed on clonazepam and Trileptal although she did not show any signs of any intoxication or sedation Patient was hospitalized for supportive care precaution and safety Patient reports that she has a history of seizure disorder and that they have started her on clonazepam 0.5 mg twice a day for seizures She says that they would not start her on the Keppra due to her bipolar disorder? Past history personal social history: Patient reports that she currently lives with her biological parents and that even though her relationship is fair that she has pressure from her cousins since other relatives Patient remains very vague superficial and would not elaborate She denies any alcohol or substance use She says that she is currently unemployed Patient did not give any specific details about any crisis in her relationship which was provided by the nursing staff Mental status examination: General Appearance: Patient appears to be stated age is alert, directable, but did attempts to cooperate. Wanting to be left alone and sleep Patient appears to have fair hygiene and grooming. Behavior: Patient is laying in bed with that she is pulled all over her Speech: Patient's speech is fluent and nonpressured. Soft tone. Impoverished speech Mood/Affect: Patient reports their mood is depressed affect is restricted Suicidality/Homicidality: Patient denies having any homicidal ideation intent or plan. Denies any suicidal ideations intent or plan at this time Perceptions: Patient denies any visual hallucinations and denies any auditory hallucinations Though content/process: There is no evidence of any delusional thought content and thought process is linear and goal-directed. Memory and concentration: AOX3, grossly intact for the purposes of this session Judgment and insight: Poor and poor IMPRESSIONS: Adjustment disorder with disturbance of affect and conduct Major depressive disorder chronic recurrent with acute exacerbation and without psychotic features Suicide attempt after an overdose of medications borderline personality disorder Relationship problems [place] II: Seizure disorder unspecified Plan: The patient will be hospitalized on the unit for further evaluation and treatment Therapy will be focused on providing supportive care Improving her coping abilities with a multimodal treatment He should also participate in OT RT PT and pharmacotherapy Approximately length of stay would be 5-12 days Medications: We will continue the Trileptal 300mg twice a day as prescribed Klonopin 0.5 mg twice a day when necessary Ration with benefit from a neuro consult to clarify her current recommendations regarding the Klonopin for seizures we'll wait on that until patient has more information to provide Supportive care marine services technician regarding gathering further collateral information from the family as well as discharge planning Maintain supportive care and safety precautions including every 15 minute checks Encouraged patient to participate in on the bryan activities and milieu treatment Yo Pfeiffer M.D.
[2023-03-12] MEDS: clonazePAM 0.5 MG TAB PO PRN (20:48)
[2023-03-13] MEDS: OXcarbazepine 300 MG TAB PO SCH ×3 (08:44→20:47)
[2023-03-13] MEDS: NICOTINE 14MG/24HR PATCH TRANSDERM SCH (08:44)
[2023-03-13] MEDS: clonazePAM 0.5 MG TAB PO PRN ×2 (08:47→20:42)
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
[2023-03-13] MEDS: LORazepam 1 MG TAB PO PRN (20:52)
[2023-03-14] MEDS: OXcarbazepine 300 MG TAB PO SCH (08:19)
[2023-03-14] MEDS: clonazePAM 0.5 MG TAB PO PRN ×2 (08:21→22:20)
[2023-03-14] MEDS: NICOTINE 14MG/24HR PATCH TRANSDERM SCH (09:20)
[2023-03-14] MEDS: LORazepam 1 MG TAB PO PRN (13:32)
[2023-03-14] MEDS ORDERED: ARIPiprazole 2 MG TAB PO SCH (16:45)
[2023-03-15] MEDS: NICOTINE 14MG/24HR PATCH TRANSDERM SCH (08:16)
[2023-03-15] MEDS: ARIPiprazole 5 MG TAB PO SCH (08:16)
[2023-03-15] MEDS: clonazePAM 0.5 MG TAB PO PRN (08:19)
--- NOTE | 2023-03-15 19:29 | P.PN ---
Progress Note - Text Progress Note Date: 03/14/23 Interval history: Patient was seen wandering the hallways and was directable and agreeable to speak with senior grant writer. She is focused on discharge. She is refusing her Trileptal 300 mg BID since 03/12 and states she does not want to take it, because she feels it makes her feel more depressed. She is compliant with her Klonopin 0.5 mg BID PRN because she feels this helps her anxiety and seizure disorder, reports it is prescribed by her outpatient neurologist. Her insight seems l imited, she is focused on discharging home as soon as possible. We reviewed her past diagnosis of bipolar disorder II and past medication trials. She states she does not know her past medication trials but her mother would know, so she called her mother so we could discuss medications with her. Patient has reportedly not done well on antidepressants in the past so we will focus on mood stabilization. Patient also reports having a history of childhood trauma and has periods of mood lability and rage. We discussed she would benefit from outpatient DBT therapy. She had also signed an AMA notice yesterday due to frustration with being hospitalized and wanting to go home. Mother encouraged patient to stay for treatment and get well prior to discharge. At this time patient denies any suicidal or homicidal ideation, intent or plan. Denies any auditory or visual hallucinations. Mental status exam: General Appearance: Patient appears to be stated age, young adult female, average grooming Behavior: No agitated behavior. Patient is irritable and focused on discharge. Speech: Patient's speech is fluent and non-pressured. Mood/Affect: Mood is irritable, affect is congruent and constricted. Suicidality/Homicidality: Patient denies having any suicidal or homicidal ideation intent or plan. Perceptions: Patient denies any auditory or visual hallucinations. Though content/process: There is no evidence of any delusional thought content and thought process is linear and goal-directed. Memory and concentration: AOX3, grossly intact for the purposes of this session Judgment and insight: Improving mildly Assessment/Plan: Continue with current diagnosis. Patient continues to meet criteria for inpatient psychiatric admission for symptom stabilization and safety. Discontinue Trileptal due to refusal and noncompliance. Start Abilify 2 mg x 1 today, with plan to increase to 5 mg daily starting tomorrow morning, for mood stabilization. Monitor for medication compliance and for any psychotropic medication side effects. Will continue to monitor ongoing response to treatment. Encouraged participation in milieu.
--- NOTE | 2023-03-15 19:33 | P.PN ---
Progress Note - Text Progress Note Date: 03/15/23 Interval history: Patient was seen resting in bed. She tested positive for RSV again so she was moved to a new room for isolation. Her mood seems improved today after starting Abilify yesterday. She is not irritable and appeara more pleasant. She complains of "heartburn" today and was given Maalox by nurse. At this time patient denies any suicidal or homicidal ideation, intent or plan. Denies any auditory or visual hallucinations. Mental status exam: General Appearance: Patient appears to be stated age, young adult female, average grooming Behavior: No agitated behavior. Patient is calm and cooperative. Speech: Patient's speech is fluent and non-pressured. Mood/Affect: Mood is improved, affect is congruent and constricted. Suicidality/Homicidality: Patient denies having any suicidal or homicidal ideation intent or plan. Perceptions: Patient denies any auditory or visual hallucinations. Though content/process: There is no evidence of any delusional thought content and thought process is linear and goal-directed. Memory and concentration: AOX3, grossly intact for the purposes of this session Judgment and insight: Improving mildly Assessment/Plan: Continue with current diagnosis. Patient continues to meet criteria for inpatient psychiatric admission for symptom stabilization and safety. Abilify was increased to 5 mg daily this morning for mood stabilization, and will continue at this dose. Continue other medications as prescribed. Monitor for medication compliance and for any psychotropic medication side effects. Will continue to monitor ongoing response to treatment. Encouraged participation in milieu.
[2023-03-15] MEDS ORDERED: MELATONIN 5 MG TABLET PO ONE (21:55)
[2023-03-16 07:32] VITALS: BP 103/55; PULSE 99; RESP 16; TEMP 97.9
[2023-03-16] MEDS: ARIPiprazole 5 MG TAB PO SCH (09:01)
[2023-03-16] MEDS: clonazePAM 0.5 MG TAB PO PRN (09:01)
[2023-03-16] MEDS: NICOTINE 14MG/24HR PATCH TRANSDERM SCH (09:01)
--- NOTE | 2023-03-16 10:08 | P.DS ---
Providers Date of admission: 03/11/23 20:56 Expected date of discharge: 03/16/23 Attending physician: Matheus Quintanilla MD Consults: 03/11/23 21:04 Consult Physician Routine Consulting Provider: Kylah Benjamin Consult Reason/Comments: H&P Do you want consulting provider notified?: Yes Primary care physician: Kelly Self - Discharge Diagnosis(es) (1) Adjustment disorder with mixed disturbance of emotions and conduct Current Visit: Yes Status: Acute Priority: High (2) Depressive disorder Current Visit: Yes Status: Acute Priority: Medium (3) Suicide attempt by other psychotropic drug overdose Current Visit: Yes Status: Acute Priority: High (4) Borderline personality disorder Current Visit: Yes Status: Acute Priority: High (5) Nicotine dependence Current Visit: Yes Status: Acute Priority: Low (6) Seizure disorder Current Visit: Yes Status: Acute Priority: Medium Hospital Course: Admission HPI: Admission note was completed by Dr Pfeiffer "This is a psychiatric assessment on Alaina Gutiérrez who is a 22-year-old female with long history of mental illness Patient has been diagnosed with bipolar disorder seizure disorder and borderline personality disorder in the past Patient reports that she was hospitalized when she was about 11 years old but did not give any details She currently presents stating that;'' everyone wants everything from me'' She would not elaborate as to what she meant by that but states that everyone is trying to get things from her She reports that her cousins and family members are also very demanding She says that she currently lives with her biological parents She said that she was in a relationship and that they have split up since then and that they have a 2-year-old child Staff however reported give information that the patient's child had told the patient that she prefers her ex-boyfriend's new girlfriend as a new mom which made her feel depressed and rejected Patient had claimed that she had overdosed on clonazepam and Trileptal although she did not show any signs of any intoxication or sedation Patient was hospitalized for supportive care precaution and safety Patient reports that she has a history of seizure disorder and that they have started her on clonazepam 0.5 mg twice a day for seizures She says that they would not start her on the Keppra due to her bipolar disorder?" Hospital course: Upon admission to the unit patient was directable and agreeable to commence treatment and signed adult voluntary form. patient signed AMA over the weekend. Patient got along well with other patients on the unit and followed unit pr otocol. Patient was compliant with the medications and denied any side effects throughout hospital course. Patient was started on Abilify by mouth and increased her dose of 5 mg daily for mood stabilization. Patient was also resumed back on her home dose of Klonopin 0.5 mg twice a day for seizures. [employer] spoke with patient about the risks of continuing on with Klonopin to control her seizures and suggested following up with her outpatient neurologist to discuss alternative antiepileptic medications which are safer and noncontrolled. Patient verbally understood and agreed. Patient spoke of her stressors and engaged in therapy both group and individual. Patient was also seen by medical team for history and physical exam. Patient was found to be positive for RSV and was in isolation while on the unit. Throughout the course of the hospitalization patient gradually improved with regards to mood, anxiety, sleep and returned back to their baseline level of functioning. On the day of discharge patient denied any suicidal or homicidal ideations intent or plan denied any auditory or visual hallucinations. Patient endorsed wanting to live for her family and her future. The patient denied any access to guns or weapons. Patient denied any paranoia and did not endorse any delusions. Patient does not have a significant history of substance abuse and was counseled on abstaining from all substances including alcohol and marijuana. Patient was also counseled on the medications and need for regular compliance and was encouraged to follow-up with their outpatient appointment for mental health and also for primary care. [employer] spoke with patient's father over the phone William who discussed his concerns and states that the home environment is safe, guns and weapons are locked away. [employer] also emphasized the importance of keeping medication bottles away from patient at this time and helping her with her medications and dosing, he verbally understood and agreed. We discussed further about the use of Klonopin and other alternatives with the neurologist that should be discussed as more safer forms of treatment for seizures. He is agreeable to have her back home today with outpatient [facility] follow-up. Mental status exam: General Appearance: Patient appears to be thin,stated age is alert, pleasant, and cooperative. Patient is in no acute distress and has improved hygiene and grooming Behavior: Patient is calmly seated without any agitated behavior. Speech: Patient's speech is fluent and nonpressured. Mood/Affect: Patient reports their mood is "better", affect is congruent and euthymic. Suicidality/Homicidality: Patient denies having any suicidal or homicidal ideation intent or plan. Perceptions: Patient denies any auditory or visual hallucinations. Though content/process: There is no evidence of any delusional thought content and thought process is linear and goal-directed. more future oriented Memory and concentration: AOX3, grossly intact for the purposes of this session. Can spell "WORLD" backwards correctly. Judgment and insight: improved with guarded prognosis Impression: adjustment disorder with mixed disturbance of conduct and emotions Depressive disorder unspecified Suicide attempt by overdose of psychotropic medications Borderline personality disorder seizure disorder Nicotine dependence Plan: -Continue with discharge today as patient has improved and stabilized psychiatrically and is not currently an imminent threat to herself and/or others. Patient will remain at chronically elevated risk for harm to self and/or others due to her impulsivity. -Continue medications: Abilify by mouth 5 mg daily for mood stabilization. Patient will continue on with her home dose of Klonopin however was strongly advised to follow up with her outpatient neurologist to discuss other options that are safer for patient for seizures. -Patient was counseled on the need for medication compliance and appropriate follow-up at mental health and also primary care for medical issues. Patient verbalized understanding and agreed. -Social work to help Hannah patient's discharge. [employer] spoke with patient's father over the phone to discuss discharge planning today and safety at home, see above. Social work also to arrange for patients follow up appointments with [facility] for psychiatric care along with follow up with primary care provider. Patient will also be following up with her outpatient neurologist within 1-2 weeks. -Patient counseled on abstaining from recreational drugs and marijuana and alcohol. Was informed/educated on the adverse effects on their physical and mental health. Patient verbally agreed and understood. -Patient was instructed to return to the hospital or seek immediate medical care if their psychiatric or medical symptoms do worsen or reoccur. Allergies Allergy/AdvReac Type Severity Reaction Status Date / Time No Known Allergies Allergy Verified 03/11/23 14:09 Laboratory Results WBC 6.2 k/uL (3.8-10.6) 03/11/23 14:00 RBC 4.56 m/uL (3.80-5.40) 03/11/23 14:00 Hgb 14.0 gm/dL (11.4-16.0) 03/11/23 14:00 Hct 41.6 % (34.0-46.0) 03/11/23 14:00 MCV 91.3 fL (80.0-100.0) 03/11/23 14:00 MCH 30.7 pg (25.0-35.0) 03/11/23 14:00 MCHC 33.7 g/dL (31.0-37.0) 03/11/23 14:00 RDW 12.5 % (11.5-15.5) 03/11/23 14:00 Plt Count 223 k/uL (150-450) 03/11/23 14:00 MPV 8.4 03/11/23 14:00 Neutrophils % 63 % 03/11/23 14:00 Lymphocytes % 22 % 03/11/23 14:00 Monocytes % 8 % 03/11/23 14:00 Eosinophils % 3 % 03/11/23 14:00 Basophils % 1 % 03/11/23 14:00 Neutrophils # 3.9 k/uL (1.3-7.7) 03/11/23 14:00 Lymphocytes # 1.4 k/uL (1.0-4.8) 03/11/23 14:00 Monocytes # 0.5 k/uL (0-1.0) 03/11/23 14:00 Eosinophils # 0.2 k/uL (0-0.7) 03/11/23 14:00 Basophils # 0.0 k/uL (0-0.2) 03/11/23 14:00 PT 12.1 sec (10.0-12.5) 03/11/23 15:10 INR 1.1 (<1.2) 03/11/23 15:10 Sodium 141 mmol/L (137-145) 03/11/23 14:00 Potassium 3.5 mmol/L (3.5-5.1) 03/11/23 14:00 Chloride 104 mmol/L (98-107) 03/11/23 14:00 Carbon Dioxide 24 mmol/L (22-30) 03/11/23 14:00 Anion Gap 13 mmol/L 03/11/23 14:00 BUN 6 mg/dL (7-17) L 03/11/23 14:00 Creatinine 0.65 mg/dL (0.52-1.04) 03/11/23 14:00 Est GFR (CKD-EPI)AfAm >90 (>60 ml/min/1.73 sqM) 03/11/23 14:00 Est GFR (CKD-EPI)NonAf >90 (>60 ml/min/1.73 sqM) 03/11/23 14:00 Glucose 84 mg/dL (74-99) 03/11/23 14:[address] Glu mg/dL 97 mg/dL 03/11/23 14:00 Hemoglobin A1c 5.0 % (<=6.0) 03/11/23 14:00 Calcium 9.1 mg/dL (8.4-10.2) 03/11/23 14:00 Magnesium 1.9 mg/dL (1.6-2.3) 03/11/23 14:00 Total Bilirubin 0.5 mg/dL (0.2-1.3) 03/11/23 14:00 AST 24 U/L (14-36) 03/11/23 14:00 ALT 20 U/L (4-34) 03/11/23 14:00 Alkaline Phosphatase 88 U/L (38-126) 03/11/23 14:00 Total Protein 6.9 g/dL (6.3-8.2) 03/11/23 14:00 Albumin 4.2 g/dL (3.5-5.0) 03/11/23 14:00 TSH 0.620 mIU/L (0.465-4.680) 03/11/23 14:00 Urine Color Yellow 03/11/23 14:00 Urine Appearance Clear (Clear) 03/11/23 14:00 Urine pH 6.5 (5.0-8.0) 03/11/23 14:00 Ur Specific Sharples 1.016 (1.001-1.035) 03/11/23 14:00 Urine Protein Negative (Negative) 03/11/23 14:00 Urine Glucose (UA) Negative (Negative) 03/11/23 14:00 Urine Ketones 1+ (Negative) H 03/11/23 14:00 Urine Blood Small (Negative) H 03/11/23 14:00 Urine Nitrite Negative (Negative) 03/11/23 14:00 Urine Bilirubin Negative (Negative) 03/11/23 14:00 Urine Urobilinogen <2.0 mg/dL (<2.0) 03/11/23 14:00 Ur Leukocyte Esterase Negative (Negative) 03/11/23 14:00 Urine RBC 9 /hpf (0-5) H 03/11/23 14:00 Urine WBC 2 /hpf (0-5) 03/11/23 14:00 Ur Squamous Epith Cells 2 /hpf (0-4) 03/11/23 14:00 Urine Mucus Many /hpf (None) H 03/11/23 14:00 Urine HCG, Qual Not Detected (Not Detectd) 03/11/23 14:00 Salicylates <1.0 mg/dL 03/11/23 14:00 Urine Opiates Screen Not Detected (NotDetected) 03/11/23 14:00 Ur Oxycodone Screen Not Detected (NotDetected) 03/11/23 14:00 Urine Methadone Screen Not Detected (NotDetected) 03/11/23 14:00 Acetaminophen <10.0 ug/mL 03/11/23 14:00 Ur Barbiturates Screen Not Detected (NotDetected) 03/11/23 14:00 Oxcarbazepine 5.7 ug/mL (10-35) L 03/11/23 13:56 U Tricyclic Antidepress Not Detected (NotDetected) 03/11/23 14:00 Ur Phencyclidine Scrn Not Detected (NotDetected) 03/11/23 14:00 Ur Amphetamines Screen Not Detected (NotDetected) 03/11/23 14:00 U Methamphetamines Scrn Not Detected (NotDetected) 03/11/23 14:00 U Benzodiazepines Scrn Not Detected (NotDetected) 03/11/23 14:00 Urine Cocaine Screen Not Detected (NotDetected) 03/11/23 14:00 U Marijuana (THC) Screen Not Detected (NotDetected) 03/11/23 14:00 Serum Alcohol <10 mg/dL 03/11/23 14:00 Influenza Type A (PCR) Not Detected (Not Detectd) 03/14/23 18:50 Influenza Type B (PCR) Not Detected (Not Detectd) 12/30/23 18:50 RSV (PCR) Detected (Not Detectd) A 03/14/23 18:50 SARS-CoV-2 (PCR) Not Detected (Not Detectd) 03/14/23 18:50 Vital Signs Temp 97.9 F 03/16/23 06:54 Pulse 99 03/16/23 06:54 Resp 16 03/16/23 06:54 BP 103/55 03/16/23 06:54 Pulse Ox 98 03/16/23 06:54 FiO2 Patient Condition at Discharge: Stable Plan - Discharge Summary Discharge Rx Participant: Yes New Discharge Prescriptions: New ARIPiprazole [Abilify] 5 mg PO DAILY 14 Days #14 tab Nicotine 14Mg/24Hr Patch [Habitrol] 1 patch TRANSDERM DAILY 14 Days #14 patch Continue clonazePAM 0.5 mg PO BID PRN PRN Reason: Anxiety/seizure Discontinued OXcarbazepine [Trileptal] 300 mg PO BID Discharge Medication List clonazePAM 0.5 mg PO BID PRN 03/11/23 [History] ARIPiprazole [Abilify] 5 mg PO DAILY 14 Days #14 tab 03/16/23 [Rx] Nicotine 14Mg/24Hr Patch [Habitrol] 1 patch TRANSDERM DAILY 14 Days #14 patch 03/16/23 [Rx] Follow up Appointment(s)/Referral(s): [facility] [Outside] - 03/25/23 1:00 pm (Natalie Nguyen 03/25/2023 @ 13:00-13:30) Dorinda Rush MD [Medical Doctor] - 1 Week (Follow up with Neurology as noted or if you have a current Neurologist for medication/seizure managment) Kelly Self DO [Primary Care Provider] - 1-2 days Activity/Diet/Wound Care/Special Instructions: Avoid the use of street drugs and alcohol. Take all medications as prescribed. When you are in need of refills on your medications, please contact your medical provider and/or outpatient psychiatrist/provider to have this done. Please go to your scheduled outpatient appointment for aftercare treatment. If symptoms return or become worse, call the crisis line at and/or go to the nearest emergency room for evaluation. National Suicide Hotline 988. Discharge Disposition: HOME SELF-CARE
== END 2023-03-16 11:50 | disposition home or self-care (01) | DRG 755 ==
LOC: EC 13:34 → 3MHU 20:56
PROVIDERS: ADMIT Psychiatry & Neurology Psychiatry; ATTEND Psychiatry & Neurology Psychiatry
DX: F43.25 Adjustment disorder with mixed disturbance of emotions and conduct (principal); F32.A Depression, unspecified; T42.4X2A Poisoning by benzodiazepines, intentional self-harm, initial encounter; F60.3 Borderline personality disorder; F17.200 Nicotine dependence, unspecified, uncomplicated; G40.909 Epilepsy, unspecified, not intractable, without status epilepticus; B97.4 Respiratory syncytial virus as the cause of diseases classified elsewhere; F19.959 Other psychoactive substance use, unspecified with psychoactive substance-induced psychotic disorder, unspecified; F31.81 Bipolar II disorder; F43.10 Post-traumatic stress disorder, unspecified; Z91.199 Patient's noncompliance with other medical treatment and regimen due to unspecified reason; Z11.52 Encounter for screening for COVID-19
CPT/HCPCS: 36415; 80053; 80143; 80179; 80183; 80306; 80320; 81001; 81025; 82075; 83036; 83735; 84443; 85025; 85610; 87635; 87636; 93005; 99285

== ENCOUNTER 2023-08-24 20:06 | Emergency (ER) | payer OTHER ==
[2023-08-24 20:17] VITALS: PULSE 66
--- NOTE | 2023-08-24 20:43 | ED ---
Abdominal Pain HPI - General Chief Complaint: Abdominal Pain Stated Complaint: 4 Weeks Preg,Sharp Pain R side-Sent by Dr Self Time Seen by Provider: 08/24/23 20:27 Source: patient Mode of arrival: ambulatory Limitations: no limitations - History of Present Illness Initial Comments: G4, 22-year-old female presenting to the ED with complaints of abdominal pain. Patient reports over the past 3 to 4 days has had sharp pain in her right lower abdomen which is constant in nature which intermittently gets worse for a minute or 2 and then doubles back down. Denies vaginal bleeding or discharge. Denies changes in bowel or bladder habits. Denies fever or chills. Denies nausea or vomiting. Has had no prior abdominal surgeries in the past. Sent in by her PCP to rule out ectopic . Follows with Dr. Ambrose. No other complaints at this time. - Related Data Home Medications Medication Instructions Recorded Confirmed clonazePAM 0.5 mg PO BID PRN 03/11/23 03/11/23 Previous Rx's Medication Instructions Recorded ARIPiprazole [Abilify] 5 mg PO DAILY 14 Days #14 tab 03/16/23 Nicotine 14Mg/24Hr Patch [Habitrol] 1 patch TRANSDERM DAILY 14 Days 03/16/23 #14 patch Allergies Allergy/AdvReac Type Severity Reaction Status Date / Time No Known Allergies Allergy Verified 08/24/23 20:17 Review of Systems ROS Statement: Those systems with pertinent positive or pertinent negative responses have been documented in the HPI. ROS Other: All systems not noted in ROS Statement are negative. Past Medical History Past Medical History: Seizure Disorder Additional Past Medical History / Comment(s): ovarian cysts. HX MICRO SEIZURES- LAST ONE OVER A YEAR AGO-(HAS THEM IN HER SLEEP). PASSED OUT END OF AUGUST AND LOSS BLADDER CONTROL History of Any Multi-Drug Resistant Organisms: None Reported Past Surgical History: No Surgical Hx Reported Additional Past Surgical History / Comment(s): COLONOSCOPY/EGD Past Anesthesia/Blood Transfusion Reactions: No Reported Reaction Past Psychological History: Anxiety, Bipolar, Depression Smoking Status: Vaper Past Alcohol Use History: Occasional Past Drug Use History: None Reported - Past Family History Mother Family Medical History: Cancer, Deep Vein Thrombosis (DVT) General Exam Limitations: no limitations General appearance: alert, in no apparent distress Eye exam: Present: normal appearance Neck exam: Present: normal inspection Respiratory exam: Present: normal lung sounds bilaterally Cardiovascular Exam: Present: regular rate GI/Abdominal exam: Present: soft, normal bowel sounds, other (No CVA TTP bi laterally). Absent: distended, tenderness, guarding, rebound, rigid Neurological exam: Present: alert, oriented X3 Skin exam: Present: warm, dry Course Vital Signs 08/24/23 20:11 Temperature 98.2 F Pulse Rate 66 Respiratory 22 Rate Blood Pressure 97/57 O2 Sat by Pulse 100 Oximetry Medical Decision Making - Medical Decision Making Was pt. sent in by a medical professional or institution (, PA, GOLD MARKER, urgent care, hospital, or half-way...) When possible be specific @ -No Did you speak to anyone other than the patient for history (EMS, parent, family, police, friend...)? What history was obtained from this source @ -No Did you review nursing and triage notes (agree or disagree)? Why? @ -I reviewed and agree with nursing and triage notes Were old charts reviewed (outside hosp., previous admission, EMS record, old EKG, old radiological studies, urgent care reports/EKG's, half-way records)? Report findings @ -No old charts were reviewed Differential Diagnosis (chest pain, altered mental status, abdominal pain women, abdominal pain men, vaginal bleeding, weakness, fever, dyspnea, syncope, headache, dizziness, GI bleed, back pain, seizure, CVA, palpatations, mental health, musculoskeletal)? @ -Differential Abdominal Pain Women: Appendicitis, Cholecystitis, diverticulosis, ischemic bowel, pancreatitis, hepatitis, UTI, gastroenteritis, AAA, incarcerated hernia, bowel obstruction, constipation, inflammatory bowel, hepatitis, peptic ulcer disease, splenic infarction, perforated viscus, vulvitis, ovarian torsion, PID, kidney stone, placenta abruption, this is not meant to be an all-inclusive list EKG interpreted by me (3pts min.). @ -None X-rays interpreted by me (1pt min.). @ -None done CT interpreted by me (1pt min.). @ -None done U/S interpreted by me (1pt. min.). @ -Ultrasound interpreted me showing a intrauterine gestational sac with no yolk sac or pole likely indicating early IUP. What testing was considered but not performed or refused? (CT, X-rays, U/S, labs)? Why? @ -None What meds were considered but not given or refused? Why? @ -None Did you discuss the management of the patient with other professionals (professionals i.e. DrRyan, PA, GOLD MARKER, lab, RT, psych nurse, social media executive, furniture upholstery mechanic, teacher, aadc plans staff officer, case packer and sealer)? Give summary @ -No Was smoking cessation discussed for >3mins.? @ -No Was critical care preformed (if so, how long)? @ -No Were there social determinants of health that impacted care today? How? (Homelessness, low income, unemployed, alcoholism, drug addiction, transportation, low edu. Level, literacy, decrease access to med. care, retirement, rehab)? @ -No Was there de-escalation of care discussed even if they declined (Discuss DNR or withdrawal of care, Hospice)? DNR status @ -No What co-morbidities impacted this encounter? (DM, HTN, Smoking, COPD, CAD, Cancer, CVA, ARF, Chemo, Hep., AIDS, mental health diagnosis, sleep apnea, morbid obesity)? @ -None Was patient admitted / discharged? Hospital course, mention meds given and route, prescriptions, significant lab abnormalities, going to OR and other pertinent info. @ -Discharge 22-year-old A3 female follows with Dr. Villanueva presenting to the ED with complaints of right lower abdominal pain for the past 4 to 5 days presenting at request of PCP to rule out ectopic . On examination no McBurney's point tenderness to palpation. No rebound tenderness. Did have more mid/right lower abdominal tenderness to palpation. Laboratory studies reviewed. CBC unremarkable. Chemistry panel unremarkable. UA shows no significant evidence of infection. hCG quant 12,620.3. Ultrasound reviewed which showed a gestational sac with no yolk sac or pole likely indicating early IUP however cannot entirely rule out ectopic at this time. Patient discharged home in stable condition with instructions to closely follow with PCP/RIBBON BLOCKMAKER. discussed strict return precautions with patient who verbalized agreement. Undiagnosed new problem with uncertain prognosis? @ -No Drug Therapy requiring intensive monitoring for toxicity (Heparin, Nitro, Insulin, Cardizem)? @ -No Were any procedures done? @ -No Diagnosis/symptom? @ -Abdominal pain in Acute, or Chronic, or Acute on Chronic? @ -Acute Uncomplicated (without systemic symptoms) or Complicated (systemic symptoms)? @ -Uncomplicated Side effects of treatment? @ -No Exacerbation, Progression, or Severe Exacerbation? @ -No Poses a threat to life or bodily function? How? (Chest pain, [place], [place], pneumonia, PE, COPD, DKA, ARF, appy, cholecystitis, CVA, Diverticulitis, Homicidal, Suicidal, threat to staff... and all critical care pts) @ -No - Lab Data Result diagrams: 08/24/23 21:00 08/24/23 20:58 Lab Results 08/24/23 08/24/23 08/24/23 Range/Units 20:58 20:58 21:00 WBC 8.7 (3.8-10.6) k/uL RBC 4.08 (3.80-5.40) m/uL Hgb 12.0 (11.4-16.0) gm/dL Hct 36.6 (34.0-46.0) % MCV 89.7 (80.0-100.0) fL MCH 29.5 (25.0-35.0) pg MCHC 32.9 (31.0-37.0) g/dL RDW 13.2 (11.5-15.5) % Plt Count 255 (150-450) k/uL MPV 8.7 Neutrophils % 66 % Lymphocytes % 25 % Monocytes % 5 % Eosinophils % 1 % Basophils % 1 % Neutrophils # 5.8 (1.3-7.7) k/uL Lymphocytes # 2.2 (1.0-4.8) k/uL Monocytes # 0.5 (0-1.0) k/uL Eosinophils # 0.1 (0-0.7) k/uL Basophils # 0.0 (0-0.2) k/uL Sodium 137 (137-145) mmol/L Potassium 4.2 (3.5-5.1) mmol/L Chloride 108 H (98-107) mmol/L Carbon Dioxide 25 (22-30) mmol/L Anion Gap 4 mmol/L BUN 6 L (7-17) mg/dL Creatinine 0.50 L (0.52-1.04) mg/dL Est GFR (CKD-EPI)AfAm >90 (>60 ml/min/1.73 sqM) Est GFR (CKD-EPI)NonAf >90 (>60 ml/min/1.73 sqM) Glucose 76 (74-99) mg/dL Calcium 9.0 (8.4-10.2) mg/dL Total Bilirubin 0.9 (0.2-1.3) mg/dL AST 24 (14-36) U/L ALT 12 (4-34) U/L Alkaline Phosphatase 56 (38-126) U/L Total Protein 6.6 (6.3-8.2) g/dL Albumin 4.1 (3.5-5.0) g/dL HCG, Quant 07685.3 mIU/mL Urine Color Urine Appearance (Clear) Urine pH (5.0-8.0) Ur Specific [place] (1.001-1.035) Urine Protein (Negative) Urine Glucose (UA) (Negative) Urine Ketones (Negative) Urine Blood (Negative) Urine Nitrite (Negative) Urine Bilirubin (Negative) Urine Urobilinogen (<2.0) mg/dL Ur Leukocyte Esterase (Negative) Urine RBC (0-5) /hpf Urine WBC (0-5) /hpf Ur Squamous Epith Cells (0-4) /hpf Urine Mucus (None) /hpf Blood Type O Positive Blood Type Recheck O Pos Bld Type Recheck Status No Antibody Screen NEGATIVE Spec Expiration Date 08/27/2023 - 235708/24/23 Range/Units 21:00 WBC (3.8-10.6) k/uL RBC (3.80-5.40) m/uL Hgb (11.4-16.0) gm/dL Hct (34.0-46.0) % MCV (80.0-100.0) fL MCH (25.0-35.0) pg MCHC (31.0-37.0) g/dL RDW (11.5-15.5) % Plt Count (150-450) k/uL MPV Neutrophils % % Lymphocytes % % Monocytes % % Eosinophils % % Basophils % % Neutrophils # (1.3-7.7) k/uL Lymphocytes # (1.0-4.8) k/uL Monocytes # (0-1.0) k/uL Eosinophils # (0-0.7) k/uL Basophils # (0-0.2) k/uL Sodium (137-145) mmol/L Potassium (3.5-5.1) mmol/L Chloride (98-107) mmol/L Carbon Dioxide (22-30) mmol/L Anion Gap mmol/L BUN (7-17) mg/dL Creatinine (0.52-1.04) mg/dL Est GFR (CKD-EPI)AfAm (>60 ml/min/1.73 sqM) Est GFR (CKD-EPI)NonAf (>60 ml/min/1.73 sqM) Glucose (74-99) mg/dL Calcium (8.4-10.2) mg/dL Total Bilirubin (0.2-1.3) mg/dL AST (14-36) U/L ALT (4-34) U/L Alkaline Phosphatase (38-126) U/L Total Protein (6.3-8.2) g/dL Albumin (3.5-5.0) g/dL HCG, Quant mIU/mL Urine Color Yellow Urine Appearance Cloudy H (Clear) Urine pH 6.5 (5.0-8.0) Ur Specific [place] 1.027 (1.001-1.035) Urine Protein Trace H (Negative) Urine Glucose (UA) Negative (Negative) Urine Ketones 2+ H (Negative) Urine Blood Trace H (Negative) Urine Nitrite Negative (Negative) Urine Bilirubin Negative (Negative) Urine Urobilinogen 3.0 (<2.0) mg/dL Ur Leukocyte Esterase Negative (Negative) Urine RBC 4 (0-5) /hpf Urine WBC 3 (0-5) /hpf Ur Squamous Epith Cells 3 (0-4) /hpf Urine Mucus Many H (None) /hpf Blood Type Blood Type Recheck Bld Type Recheck Status Antibody Screen Spec Expiration Date Disposition Clinical Impression: Abdominal pain affecting Disposition: HOME SELF-CARE Condition: Good Instructions (If sedation given, give patient instructions): Abdominal Pain in (ED) Additional Instructions: Please return to the Emergency Department if symptoms worsen or any other concerns. Please follow-up with your PCP/RIBBON BLOCKMAKER. Is patient prescribed a controlled substance at d/c from ED?: No Referrals: Kelly Self DO [Primary Care Provider] - 1-2 days Time of Disposition: 23:20
[2023-08-24 21:57] LABS: Appearance,Urine Cloudy (Clear); Bilirubin,Urine Negative (Negative); Blood,Urine Trace (Negative); Color,Urine Yellow; Glucose,Urine (UA) Negative (Negative); Ketones,Urine 2+ (Negative); Leukocyte Esterase,Urine Negative (Negative); Mucus,Urine Many /hpf; Nitrite,Urine Negative (Negative); PH, Urine 6.5 (5.0-8.0); Protein,Urine Trace (Negative); RBC,Urine 4 /hpf (0-5); Specific Gravity,Urine 1.027 (1.001-1.035); Squamous Epithelial Cell,Urine 3 /hpf (0-4); WBC,Urine 3 /hpf (0-5)
[2023-08-24 22:06] LABS: Basophils % (A) 1 %; Eosinophils # (A) 0.1 k/uL (0-0.7); Eosinophils % (A) 1 %; HCT 36.6 % (34.0-46.0); Lymphocytes # (A) 2.2 k/uL (1.0-4.8); Lymphocytes % (A) 25 %; MCH 29.5 pg (25.0-35.0); MCHC 32.9 g/dL (31.0-37.0); MCV 89.7 fL (80.0-100.0); Mean Platelet Volume 8.7; Monocytes # (A) 0.5 k/uL (0-1.0); Monocytes % (A) 5 %; Neutrophils # (A) 5.8 k/uL (1.3-7.7); Neutrophils % (A) 66 %; Platelet Count 255 k/uL (150-450); RBC 4.08 m/uL (3.80-5.40); RDW 13.2 % (11.5-15.5); WBC 8.7 k/uL (3.8-10.6)
[2023-08-24 22:15] LABS: ALT 12 U/L (4-34); AST 24 U/L (14-36); African American GFR (CKD) >90 (>60 ml/min/1.73 sqM); Albumin 4.1 g/dL (3.5-5.0); Alkaline Phosphatase 56 U/L (38-126); Anion Gap 4 mmol/L; Blood Urea Nitrogen 6 mg/dL (7-17); Carbon Dioxide 25 mmol/L (22-30); Chloride 108 mmol/L (98-107); Glucose 76 mg/dL (74-99); Non-African American GFR(CKD) >90 (>60 ml/min/1.73 sqM); Potassium 4.2 mmol/L (3.5-5.1); Sodium 137 mmol/L (137-145); Total Bilirubin 0.9 mg/dL (0.2-1.3); Total Protein 6.6 g/dL (6.3-8.2)
--- NOTE | 2023-08-24 22:19 | US ---
EXAMINATION TYPE: Transabdominal DATE OF EXAM: 08/24/2023 9:46 PM COMPARISON: NONE CLINICAL INDICATION: Female, 22 years old with history of 4 wks , RLQ pain r/o ectopic; Simón nt states RLQ pain. Says she is 4 weeks . Family hx of ectopic EXAM PERFORMED: Transvaginal (TV) and Transabdominal (TA) EXAM MEASUREMENTS: GESTATIONAL AGE / DATING Physician Established: Not yet established Dates by LMP: (4 weeks/3 days) EDC: 04/29/2024 Dates by First Scan: No previous this is first scan Dates by Current Scan for: (5 weeks/5 days) based on MSD EDC: 04/20/2024 based on MSD MATERNAL ANATOMY Uterus: 6.8 x 3.9 x 5.2cm Right Ovary: 2.9 x 2.1 x 2.6 cm Left Ovary: 2.3 x 1.2 x 1.7 Post CDS / Adnexa: WNL as best seen Presence of free fluid: No Presence of corpus luteal cyst: Not seen Presence of subchorionic bleed: No GESTATION / SURVEY CRL: NA MSD: 1.0 (5 weeks/5 days) Yolk Sac (normal less than 6mm): 2mm Heart Rate: NA bpm Rhythm: NA IUP: Gestational sac and Yolk sac seen, pole not yet seen. ? too early. Date of LMP: 07/24/2023 Beta HcG (if available): Not available at this time IMPRESSION: 1. Gestational sac with no yolk sac or pole which likely indicates an early intrauterine pregna ncy. 2. Given the lack of definitive intrauterine , ectopic cannot be entirely excluded and short-term follow-up is recommended. 3. Limited by lack of correlation with beta hCG.
[2023-08-24 22:31] LABS: HCG,Quantitative Serum 12620.3 mIU/mL
[2023-08-24 23:56] VITALS: BP 106/76; RESP 20; TEMP 98
== END 2023-08-24 23:55 | disposition home or self-care (01) ==
LOC: EC 20:06
DX: O26.891 Other specified pregnancy related conditions, first trimester (principal); R10.31 Right lower quadrant pain; O99.331 Smoking (tobacco) complicating pregnancy, first trimester; F17.290 Nicotine dependence, other tobacco product, uncomplicated; Z3A.01 Less than 8 weeks gestation of pregnancy
CPT/HCPCS: 36415; 76801; 76817; 80053; 81001; 84702; 85025; 86850; 86900; 86901; 99284

== ENCOUNTER → 2023-09-01 | Outpatient (CLI) | payer OTHER | END | disposition home or self-care (01) | LOC: LABMAIN 16:52 | PROVIDERS: ATTEND Family Medicine | DX: Z53.9 Procedure and treatment not carried out, unspecified reason (principal) ==

== ENCOUNTER 2023-10-23 12:05 | Emergency (ER) | payer SELFPAY ==
[2023-10-23] MEDS ORDERED: SODIUM CHLORIDE 0.9% 1,000 ML BAG ONE (12:30)
== END 2023-10-23 15:40 | disposition home or self-care (01) ==
LOC: EC 12:05
CPT/HCPCS: 93005; 99284

== ENCOUNTER 2023-10-31 18:40 | Emergency (ER) | payer OTHER ==
--- NOTE | 2023-12-01 18:19 | US ---
Patient Maria M Gutiérrez ID [id number] Order # EXAMINATION TYPE: US OB >= 14 wk fetus DATE OF EXAM: 10/31/2023 COMPARISON: None CLINICAL INDICATION: Unknown, old with history of ; TECHNIQUE: Real-time sector scanning sonography over the gravid uterus. GESTATIONAL AGE / DATING Physician Established: ( weeks/ days) EDC: Dates by LMP: ( weeks/ days) EDC: Dates by First Scan: ( weeks/ days) EDC: Dates by Current Scan: ( weeks/ days) EDC: Beta HCG (if available): SURVEY IUP: Single PLACENTA: Anterior PREVIA: Low Lying BRITTANIE: 12.8 cm CERVICAL LENGTH (transabdominal: norm > 3.0cm): 3.3 cm BIOMETRY PRESENTATION: Breech LIE: BPD: 2.99 cm 15 weeks / 4 days HC: 11.32 cm 15 weeks / 4 days AC: 19.19 cm 15 weeks / 3 days FL: 1.81 cm 15 weeks / 3 days ESTIMATED WEIGHT IN GRAMS: 123 grams WEIGHT PERCENTAGE BASED ON ESTABLISHED DATES: % HC/AC: 1.23 Normal FL/AC: 20 Normal HEART RATE: 152 bpm RHYTHM: Normal IMPRESSION: 1. Single intrauterine gestation estimated at 15 weeks 4 days gestation. Cardiac activity measures 15 2 bpm. 2. There may be a low-lying placenta.
== END 2023-10-31 21:11 | disposition home or self-care (01) ==
LOC: EC 18:40
CPT/HCPCS: 76805; 86900; 86901; 99284

== ENCOUNTER 2023-11-28 22:05 | Emergency (ER) | payer OTHER ==
[2023-11-28 22:31] VITALS: RESP 16
[2023-11-29 01:12] LABS: Appearance,Urine Clear (Clear); Bilirubin,Urine Negative (Negative); Blood,Urine Negative (Negative); Color,Urine Yellow; Glucose,Urine (UA) Negative (Negative); Ketones,Urine Negative (Negative); Leukocyte Esterase,Urine Trace (Negative); Mucus,Urine Rare /hpf; Nitrite,Urine Negative (Negative); Protein,Urine Trace (Negative); RBC,Urine 1 /hpf (0-5); Squamous Epithelial Cell,Urine 1 /hpf (0-4); Urobilinogen,Urine <2.0 mg/dL (<2.0); WBC,Urine 4 /hpf (0-5)
--- NOTE | 2023-11-29 01:36 | ED ---
Female Urogenital HPI - General Chief complaint: Urogenital Stated complaint: 19 wks preg - Extreme Pressure Time Seen by Provider: 11/28/23 22:38 Source: patient Mode of arrival: wheelchair Limitations: no limitations - History of Present Illness Initial comments: 23-year-old female presents emergency department reporting swelling to her vagi nal region. States that she has 19 weeks . Patient is G2, P1. She follows with Dr. Heller. She has an appointment on Thursday. Tonight she noted that she had swelling to her vaginal region which was causing her discomfort. She does report some rough intercourse and was concerned that she may have injured the area. She was also concerned about infection. She denies any vaginal discharge. No vaginal bleeding. No complications with this thus far. She denies dysuria, hematuria or difficulty voiding. She denies diarrhea, constipation, black or bloody stools. No fevers. No other alleviating, precipitating or modifying factors - Related Data Home Medications Medication Instructions Recorded Confirmed clonazePAM 0.5 mg PO BID PRN 03/11/23 03/11/23 Previous Rx's Medication Instructions Recorded ARIPiprazole [Abilify] 5 mg PO DAILY 14 Days #14 tab 03/16/23 Nicotine 14Mg/24Hr Patch [Habitrol] 1 patch TRANSDERM DAILY 14 Days 03/16/23 #14 patch Clotrimazole [Gyne-Lotrimin 2% (3 1 applicator VAGINAL HS #7 each 11/29/23 day)] Allergies Allergy/AdvReac Type Severity Reaction Status Date / Time No Known Allergies Allergy Verified 11/28/23 22:26 Review of Systems ROS Statement: Those systems with pertinent positive or pertinent negative responses have been documented in the HPI. ROS Other: All systems not noted in ROS Statement are negative. Past Medical History Past Medical History: Seizure Disorder Additional Past Medical History / Comment(s): ovarian cysts. HX MICRO SEIZURES- LAST ONE OVER A YEAR AGO-(HAS THEM IN HER SLEEP). PASSED OUT END OF AUGUST AND LOSS BLADDER CONTROL History of Any Multi-Drug Resistant Organisms: None Reported Past Surgical History: No Surgical Hx Reported Additional Past Surgical History / Comment(s): COLONOSCOPY/EGD Past Anesthesia/Blood Transfusion Reactions: No Reported Reaction Past Psychological History: Anxiety, Bipolar, Depression Smoking Status: Vaper Past Alcohol Use History: Occasional Past Drug Use History: None Reported - Past Family History Mother Family Medical History: Cancer, Deep Vein Thrombosis (DVT) General Exam Limitations: no limitations General appearance: alert, in no apparent distress Head exam: Present: atraumatic, normocephalic, normal inspection Eye exam: Present: normal appearance, PERRL, EOMI. Absent: scleral icterus, conjunctival injection, periorbital swelling ENT exam: Present: normal exam, mucous membranes moist Neck exam: Present: normal inspection. Absent: tenderness, meningismus, lymphadenopathy Respiratory exam: Present: normal lung sounds bilaterally. Absent: respiratory distress, wheezes, rales, rhonchi, stridor Cardiovascular Exam: Present: regular rate, normal rhythm, normal heart sounds. Absent: systolic murmur, diastolic murmur, rubs, gallop, clicks GI/Abdominal exam: Present: soft, normal bowel sounds. Absent: distended, tenderness, guarding, rebound, rigid External exam: Present: normal external exam. Absent: erythema, swelling, lesions Speculum exam: Present: vaginal discharge. Absent: cervical discharge, vaginal bleeding Extremities exam: Present: normal inspection, full ROM, normal capillary refill. Absent: tenderness, pedal edema, joint swelling, calf tenderness Back exam: Present: normal inspection Neurological exam: Present: alert, oriented X3, CN II-XII intact Psychiatric exam: Present: normal affect, normal mood Skin exam: Present: warm, dry, intact, normal color. Absent: rash Course Vital Signs 11/28/23 11/29/23 22:26 02:08 Temperature 98.4 F 98.3 F Pulse Rate 82 79 Respiratory 16 16 Rate Blood Pressure 90/59 106/59 O2 Sat by Pulse 100 98 Oximetry Medical Decision Making - Medical Decision Making Was pt. sent in by a medical professional or institution (, PA, COMPONENT ENGINEER, urgent c are, hospital, or group home...) When possible be specific @ -No Did you speak to anyone other than the patient for history (EMS, parent, family, police, friend...)? What history was obtained from this source @ -No Did you review nursing and triage notes (agree or disagree)? Why? @ -I reviewed and agree with nursing and triage notes Were old charts reviewed (outside hosp., previous admission, EMS record, old EKG, old radiological studies, urgent care reports/EKG's, group home records)? Report findings @ -No old charts were reviewed Differential Diagnosis (chest pain, altered mental status, abdominal pain women, abdominal pain men, vaginal bleeding, weakness, fever, dyspnea, syncope, headache, dizziness, GI bleed, back pain, seizure, CVA, palpatations, mental health, musculoskeletal)? @ -Vaginitis, cervicitis, STI, yeast infection EKG interpreted by me (3pts min.). @ -Not done X-rays interpreted by me (1pt min.). @ -None done CT interpreted by me (1pt min.). @ -None done U/S interpreted by me (1pt. min.). @ -None done What testing was considered but not performed or refused? (CT, X-rays, U/S, labs)? Why? @ -None What meds were considered but not given or refused? Why? @ -None Did you discuss the management of the patient with other professionals (professionals i.e. , PA, COMPONENT ENGINEER, lab, RT, psych nurse, manager social, director workers compensation, teacher, vessel traffic officer, nurse case manager)? Give summary @ -No Was smoking cessation discussed for >3mins.? @ -No Was critical care preformed (if so, how long)? @ -No Were there social determinants of health that impacted care today? How? (Homelessness, low income, unemployed, alcoholism, drug addiction, transportation, low edu. Level, literacy, decrease access to med. care, [facility], rehab)? @ -No Was there de-escalation of care discussed even if they declined (Discuss DNR or withdrawal of care, Hospice)? DNR status @ -No What co-morbidities impacted this encounter? (DM, HTN, Smoking, COPD, CAD, Cancer, CVA, ARF, Chemo, Hep., AIDS, mental health diagnosis, sleep apnea, morbid obesity)? @ -None Was patient admitted / discharged? Hospital course, mention meds given and route, prescriptions, significant lab abnormalities, going to OR and other pertinent info. @ -Upon arrival patient seen and evaluated in room 21. Thorough history and physical exam was performed. Physical exam does not demonstrate any significant swelling. Patient does have some discharge. UA is evaluated and demonstrates no UTI. Results are discussed with the patient. Did recommend treating for possible yeast due to risk of labor. Patient was agreeable to this. Prescription was sent to the pharmacy. She is to follow-up with her TYPEWRITER MECHANIC on Thursday and return for any new or worsening symptoms Undiagnosed new problem with uncertain prognosis? @ -No Drug Therapy requiring intensive monitoring for toxicity (Heparin, Nitro, Insulin, Cardizem)? @ -No Were any procedures done? @ -No Diagnosis/symptom? @ -Acute pelvic pain, vaginal swelling, second trimester , possible yeast infection Acute, or Chronic, or Acute on Chronic? @ -Acute Uncomplicated (without systemic symptoms) or Complicated (systemic symptoms)? @ -Uncomplicated Side effects of treatment? @ -No Exacerbation, Progression, or Severe Exacerbation? @ -No Poses a threat to life or bodily function? How? (Chest pain, [place], [place], pneumonia, PE, COPD, DKA, ARF, appy, cholecystitis, CVA, Diverticulitis, Homicidal, Suicidal, threat to staff... and all critical care pts) @ -No - Lab Data Lab Results 11/28/23 Range/Units 23:58 Urine Color Yellow Urine Appearance Clear (Clear) Urine pH 8.0 (5.0-8.0) Ur Specific [place] 1.030 (1.001-1.035) Urine Protein Trace H (Negative) Urine Glucose (UA) Negative (Negative) Urine Ketones Negative (Negative) Urine Blood Negative (Negative) Urine Nitrite Negative (Negative) Urine Bilirubin Negative (Negative) Urine Urobilinogen <2.0 (<2.0) mg/dL Ur Leukocyte Esterase Trace H (Negative) Urine RBC 1 (0-5) /hpf Urine WBC 4 (0-5) /hpf Ur Squamous Epith Cells 1 (0-4) /hpf Urine Mucus Rare H (None) /hpf Disposition Clinical Impression: Swelling of vagina, Second trimester Disposition: HOME SELF-CARE Condition: Stable Instructions (If sedation given, give patient instructions): Pelvic Pain (ED) Additional Instructions: Please remain on pelvic rest and bedrest until you see your TYPEWRITER MECHANIC. Try the cream to see if it alleviates your symptoms. Place cool compresses to the site and return for any new or worsening symptoms Prescriptions: Clotrimazole [Gyne-Lotrimin 2% (3 day)] 1 applicator VAGINAL HS #7 each Is patient prescribed a controlled substance at d/c from ED?: No Referrals: Kelly Self DO [Primary Care Provider] - 1-2 days Constanza Ambrose DO [Doctor of Osteopathic Medicine] - 1-2 days Time of Disposition: 01:36
[2023-11-29] MEDS: CLOTRIMAZOLE 1% CREAM 30 GM TUBE TOPICAL STA (02:05)
[2023-11-29 02:10] VITALS: BP 106/59; PULSE 79; TEMP 98.3
== END 2023-11-29 02:09 | disposition home or self-care (01) ==
LOC: EC 22:05
CPT/HCPCS: 81001; 99283

== ENCOUNTER 2024-02-28 19:25 | Outpatient (CLI) | payer OTHER ==
[2024-02-28 19:51] LABS: Appearance,Urine Clear (Clear); Bilirubin,Urine Negative (Negative); Blood,Urine Negative (Negative); Color,Urine Colorless; Glucose,Urine (UA) Negative (Negative); Ketones,Urine Negative (Negative); Leukocyte Esterase,Urine Moderate (Negative); Nitrite,Urine Negative (Negative); PH, Urine 7.5 (5.0-8.0); Protein,Urine Negative (Negative); RBC,Urine 1 /hpf (0-5); Specific Gravity,Urine 1.005 (1.001-1.035); Squamous Epithelial Cell,Urine 1 /hpf (0-4); Urobilinogen,Urine <2.0 mg/dL (<2.0); WBC,Urine 2 /hpf (0-5)
[2024-02-28] MEDS: BETAMET ACET-BETAMETH SOD PHOS 6 MG/ML MDV IM SCH (20:40)
[2024-02-28] MEDS: LACTATED RINGERS 1,000 ML IV ONE (20:41)
[2024-02-28] MEDS: MAGNESIUM SULFATE-WATER PMX 4 GM in WATER FOR INJECTION 1 100ML.BAG IVPB ONE (21:59)
[2024-02-28] MEDS: LACTATED RINGERS 1,000 ML IV SCH (22:19)
[2024-02-28] MEDS: MAGNESIUM SULFATE-WATER PMX 20 GM in WATER FOR INJECTION 1 500ML.BAG IV SCH (22:19)
--- NOTE | 2024-02-28 22:34 | P.HPOB ---
History of Present Illness H&P Date: 02/28/24 Chief Complaint: contractions 23-year-old presents at 32 weeks complaining of contractions. The contractions were very irregular and not terribly painful at first. heart tones 135 with moderate variability and reactive, category 1. Her cervix is 3 cm dilated, 60% effaced, -2 station. fibronectin was obtained but not sent since she was 3 cm dilated. IV fluids were started and a dose of Celestone was given. After 2 hours her contractions spaced out to every 5-10 minutes but they felt stronger to her. Her cervix is now 3-4 cm dilated. I contacted a tertiary facility, [facility] where they accepted transfer of this patient. She does have a history of delivery at 34 weeks. Review of Systems All systems: negative Constitutional: Denies chills, Denies fever Eyes: denies blurred vision, denies pain Ears, nose, mouth and throat: Denies headache, Denies sore throat Cardiovascular: Denies chest pain, Denies shortness of breath Respiratory: Denies cough Gastrointestinal: Denies abdominal pain, Denies diarrhea, Denies nausea, Denies vomiting Genitourinary: Denies dysuria, Denies hematuria Musculoskeletal: Denies myalgias Integumentary: Denies pruritus, Denies rash Neurological: Denies numbness, Denies weakness Psychiatric: Denies anxiety, Denies depression Endocrine: Denies fatigue, Denies weight change Past Medical History Past Medical History: Seizure Disorder Additional Past Medical History / Comment(s): ovarian cysts. HX MICRO SEIZURES- LAST ONE OVER A YEAR AGO-(HAS THEM IN HER SLEEP). PASSED OUT END OF AUGUST AND LOSS BLADDER CONTROL History of Any Multi-Drug Resistant Organisms: None Reported Past Surgical History: No Surgical Hx Reported Additional Past Surgical History / Comment(s): COLONOSCOPY/EGD Past Anesthesia/Blood Transfusion Reactions: No Reported Reaction Smoking Status: Vaper - Past Family History Mother Family Medical History: Cancer, Deep Vein Thrombosis (DVT) Medications and Allergies Home Medications Medication Instructions Recorded Confirmed Type OXcarbazepine 2 tab PO DAILY 02/28/24 02/28/24 History Vit No.179/Iron/Folic 1 tab PO DAILY 02/28/24 02/28/24 History [ Tablet] Allergies Allergy/AdvReac Type Severity Reaction Status Date / Time No Known Allergies Allergy Verified 09/14/24 22:26 Exam Osteopathic Statement: *. No significant issues noted on an osteopathic structural exam other than those noted in the History and Physical/Consult. Intake and Output 02/28/24 02/28/24 02/28/24 06:59 14:59 22:59 Other: Weight 64.864 kg Heart: Regular rate and rhythm Lungs: Clear to auscultation bilaterally Abdomen: Soft, nontender Extremities: Negative Homans sign Results Abnormal Lab Results - Last 24 Hours (Table) 02/28/24 Range/Units 19:39 Ur Leukocyte Esterase Moderate H (Negative) Assessment and Plan (1) 32 weeks gestation of Current Visit: Yes Status: Acute Code(s): Z3A.32 - 32 WEEKS GESTATION OF SNOMED Code(s): 4823598 (2) History of delivery Current Visit: Yes Status: Acute Code(s): Z87.51 - PERSONAL HISTORY OF PRE- TERM LABOR SNOMED Code(s): 430784318 Plan: 1. mag sulfate 2. celestone 3. transfer to [facility]
[2024-02-29 02:01] VITALS: BP 117/74; PULSE 114; RESP 16; TEMP 96.8
== END 2024-02-28 22:46 | disposition other institution (70) ==
LOC: FBPOP 19:25
PROVIDERS: ATTEND Obstetrics & Gynecology
DX: O47.03 False labor before 37 completed weeks of gestation, third trimester (principal); Z3A.32 32 weeks gestation of pregnancy; Z87.51 Personal history of pre-term labor; F17.290 Nicotine dependence, other tobacco product, uncomplicated
CPT/HCPCS: 81001; J3475 ×2; J0702; 59025; 96361; 96365; 99215

== ENCOUNTER 2024-03-23 11:53 | Observation (INO) | payer OTHER ==
[2024-03-23] MEDS: LACTATED RINGERS 1,000 ML IV SCH (14:16)
[2024-03-23 14:39] LABS: Basophils % (A) 0 %; Eosinophils # (A) 0.1 k/uL (0-0.7); Eosinophils % (A) 1 %; HCT 35.1 % (34.0-46.0); HGB 12.1 gm/dL (11.4-16.0); Lymphocytes % (A) 16 %; MCH 32.4 pg (25.0-35.0); MCHC 34.4 g/dL (31.0-37.0); MCV 94.2 fL (80.0-100.0); Mean Platelet Volume 8.9; Monocytes # (A) 0.7 k/uL (0-1.0); Monocytes % (A) 6 %; Neutrophils # (A) 9.5 k/uL (1.3-7.7); Neutrophils % (A) 75 %; Platelet Count 233 k/uL (150-450); RBC 3.72 m/uL (3.80-5.40); RDW 12.7 % (11.5-15.5); WBC 12.6 k/uL (3.8-10.6)
[2024-03-23 15:51] VITALS: BP 107/67; PULSE 104; RESP 17; TEMP 97.7
--- NOTE | 2024-03-23 17:56 | P.HPOB ---
History of Present Illness H&P Date: 03/23/24 Chief Complaint: IUP at 35+ weeks, contractions 23-year-old G2, P1 at 35-3/7 weeks, estimated due date of 04/24 based on last menstrual period and consistent with first trimester ultrasound. Patient was recently transferred to [facility] in [place] secondary to advanced cervical dilation and contractions. Patient was discharged. Patient states she began having contractions and questionable rupture of membranes today. Patient presented to OB triage, AmniSure was negative. Patient was noted to be 5 cm dilated. Patient was 4 cm previously mid February. Patient notes good movement, occasional contractions are appreciated. She denies vaginal bleeding. Patient was monitored through the day with irregular contractions appreciated, patient states they feel like cramping not uncomfortable. She denies vaginal bleeding. She notes continued good movement, NST has been category 1 throughout the day. Review of Systems Constitutional: Denies chills, Denies fatigue, Denies fever Ears, nose, mouth and throat: Denies headache Cardiovascular: Reports leg edema Respiratory: Denies dyspnea Gastrointestinal: Denies constipation, Denies diarrhea, Denies nausea, Denies vomiting Genitourinary: Reports Past Medical History Past Medical History: Coronary Artery Disease (CAD), Seizure Disorder Additional Past Medical History / Comment(s): ovarian cysts. HX MICRO SEIZURES- LAST ONE OVER A YEAR AGO-(HAS THEM IN HER SLEEP). PASSED OUT END OF AUGUST AND LOSS BLADDER CONTROL History of Any Multi-Drug Resistant Organisms: None Reported Past Surgical History: No Surgical Hx Reported Additional Past Surgical History / Comment(s): COLONOSCOPY/EGD Past Anesthesia/Blood Transfusion Reactions: No Reported Reaction Past Psychological History: Anxiety, Bipolar, Depression Smoking Status: Current every day smoker Past Alcohol Use History: Occasional Past Drug Use History: None Reported - Past Family History Mother Family Medical History: Cancer, Deep Vein Thrombosis (DVT) Medications and Allergies Home Medications Medication Instructions Recorded Confirmed Type OXcarbazepine 2 tab PO DAILY 02/28/24 03/23/24 History Vit No.179/Iron/Folic 1 tab PO DAILY 02/28/24 03/23/24 History [ Tablet] Allergies Allergy/AdvReac Type Severity Reaction Status Date / Time No Known Allergies Allergy Verified 03/23/24 11:59 Exam Osteopathic Statement: *. No significant issues noted on an osteopathic structural exam other than those noted in the History and Physical/Consult. Vital Signs Temp Pulse Resp BP Pulse Ox 03/23/24 15:45 97.7 F 104 H 17 107/67 97 Intake and Output 03/23/24 03/23/24 03/23/24 06:59 14:59 22:59 Other: # Voids 2 Weight 65.317 kg 65.317 kg Physical exam is performed this date General Is well-nourished well-developed female in no acute distress, comfortably resting in bed. Breathing is nonlabored, abdomen is gravid, on cervical exam she is 5/90/-2 station no blood appreciated on glove upon examination. Category 1 heart tones are noted irregular contractions are appreciated. Results Result Diagrams: 03/23/24 14:14 Abnormal Lab Results - Last 24 Hours (Table) 03/23/24 Range/Units 14:14 WBC 12.6 H (3.8-10.6) k/uL RBC 3.72 L (3.80-5.40) m/uL Neutrophils # 9.5 H (1.3-7.7) k/uL Assessment and Plan (1) 35 to 36 weeks gestation of Current Visit: Yes Status: Acute Code(s): DAO4498 - SNOMED Code(s): 884755639 (2) contractions Current Visit: Yes Status: Acute Code(s): O47.00 - FALSE LABOR BEFORE 37 COMPLETED WEEKS OF GEST, UNSP TRI SNOMED Code(s): 417399767 (3) History of delivery Current Visit: Yes Status: Acute Code(s): Z87.51 - PERSONAL HISTORY OF PRE- TERM LABOR SNOMED Code(s): 357962736 Plan: 23-year-old G2, P1 at 35-3/7 weeks, no cervical change is appreciated through the day. Patient has been monitored since noon, she states she is feeling well and is wishing discharge home. Patient states she lives about 10 minutes from the hospital and will return with any increase and contraction discomfort. Labor precautions are reviewed. All questions are answered.
== END 2024-03-23 17:58 | disposition home or self-care (01) ==
LOC: FBPOP 11:53 → 4FBP 13:05
PROVIDERS: ADMIT Obstetrics & Gynecology Obstetrics; ATTEND Obstetrics & Gynecology Obstetrics
DX: O60.03 Preterm labor without delivery, third trimester (principal); O09.213 Supervision of pregnancy with history of pre-term labor, third trimester; Z3A.35 35 weeks gestation of pregnancy; Z79.899 Other long term (current) drug therapy; O99.333 Smoking (tobacco) complicating pregnancy, third trimester
CPT/HCPCS: 59025; 84112; 86900; 86901; 85025; 86850; G0463; G0378; 99213

== ENCOUNTER 2024-04-05 10:10 | Inpatient (IN) | payer OTHER ==
[2024-04-05] MEDS ORDERED: TRANEXAMIC 1,000 MG/100ML-NACL 1,000 MG in EMPTY BAG 1 BAG IV PRN (12:02)
[2024-04-05] MEDS ORDERED: OXYTOCIN 10 UNIT/ML 1 ML VIAL IM PRN (12:02)
[2024-04-05] MEDS ORDERED: TERBUTALINE 1 MG/ML VIAL SQ PRN (12:02)
[2024-04-05] MEDS ORDERED: CARBOPROST TROMETHAMINE 250 MCG/ML 1 ML AMP IM PRN (12:02)
[2024-04-05] MEDS ORDERED: miSOPROStoL 200 MCG TAB RECTAL PRN (12:02)
[2024-04-05] MEDS ORDERED: miSOPROStoL 200 MCG TAB PO PRN (12:02)
[2024-04-05] MEDS ORDERED: METHYLERGONOVINE 0.2 MG/ML 1 ML AMP IM PRN (12:02)
[2024-04-05] MEDS ORDERED: LIDOCAINE 0.5% (PF) 5 MG/ML (50 ML SDV) SQ PRN (12:02)
[2024-04-05] MEDS ORDERED: OXYTOCIN 30 UNITS/500 ML NS 30 UNIT in SALINE 1 500ML.BAG IV SCH (12:15)
[2024-04-05] MEDS: LACTATED RINGERS 1,000 ML BAG IV STA (12:18)
[2024-04-05] MEDS: AMPICILLIN 2,000 MG in SODIUM CHLORIDE 0.9% 100 ML IVPB STA (12:32)
[2024-04-05 12:35] LABS: Basophils # (A) 0.1 k/uL (0-0.2); Basophils % (A) 0 %; Eosinophils # (A) 0.1 k/uL (0-0.7); Eosinophils % (A) 0 %; HCT 37.5 % (34.0-46.0); HGB 12.6 gm/dL (11.4-16.0); Lymphocytes # (A) 2.3 k/uL (1.0-4.8); Lymphocytes % (A) 19 %; MCH 31.8 pg (25.0-35.0); MCHC 33.5 g/dL (31.0-37.0); MCV 94.9 fL (80.0-100.0); Mean Platelet Volume 9.5; Monocytes # (A) 0.4 k/uL (0-1.0); Monocytes % (A) 3 %; Neutrophils % (A) 75 %; Platelet Count 238 k/uL (150-450); RBC 3.96 m/uL (3.80-5.40); RDW 12.9 % (11.5-15.5)
[2024-04-05] MEDS: LACTATED RINGERS 500 ML IV SCH (14:58)
[2024-04-05] MEDS: OXYTOCIN 30 UNITS/500 ML NS 30 UNIT in SALINE 1 500ML.BAG IV SCH (16:00)
[2024-04-05] MEDS ORDERED: HYDROCORTISONE 2.5% RECTAL CREAM 30 GM TUBE RECTAL PRN (16:09)
[2024-04-05] MEDS ORDERED: ZOLPIDEM 5 MG TAB PO PRN (16:09)
[2024-04-05] MEDS ORDERED: diphenhydrAMINE 50 MG/ML 1 ML VIAL IVP PRN ×2 (16:09)
[2024-04-05] MEDS ORDERED: LANOLIN CREAM 1 GM TUBE TOPICAL PRN (16:09)
[2024-04-05] MEDS ORDERED: diphenhydrAMINE 50 MG CAP PO PRN (16:09)
[2024-04-05] MEDS ORDERED: diphenhydrAMINE 25 MG CAP PO PRN (16:09)
[2024-04-05] MEDS ORDERED: SIMETHICONE 80 MG CHEWABLE PO PRN (16:09)
--- NOTE | 2024-04-05 16:09 | P.PROBDLV ---
Vaginal Delivery Note - . Vaginal Delivery Note: 23-year-old -1-1-1 at 37-2/7 weeks presented from the office after cervix was noted to be 6+ centimeters. Patient had no contractions painful at times. Patient was admitted and amniotomy was performed copious clear fluid was obtained. Patient requested epidural which was placed without difficulty by the anesthesia department. Patient progressed to complete began pushing and had a normal spontaneous vaginal delivery of a viable male infant. Weight is curren tly pending. After 2-minute delay the umbilical cord was doubly clamped and cut. Spontaneous cry was noted at . Placenta was delivered spontaneously intact with a three-vessel cord being noted. Uterus was noted to be firm below the umbilicus. Bladder was drained via red rubber catheter for approximately 200 cc of clear yellow urine. On inspection the patient's vaginal vault no lacerations were appreciated. Estimated blood loss 100 cc. All counts were noted be correct x 2. Patient and infant tolerated delivery well and are resting comfortably
--- NOTE | 2024-04-05 16:11 | P.HPOB ---
History of Present Illness H&P Date: 04/05/24 Chief Complaint: IUP at 37-2/7 weeks, advanced cervical dilation This is a 23-year-old 3 para 0-1-1-1 at 37-2/7 weeks that presented to labor and delivery after her routine visit. Patient has been noting contractions approximately 32 weeks. Patient was transferred to [facility] in [place] where she was observed for labor. Patient has a history of a 34-week P PROM at delivery. Patient was given steroids at her visit/stay at [facility]. Patient has been 4+ centimeters for the last 2 weeks. Today on exam patient was noted to be 6+ centimeters with a bulging bag of water. Patient noted contractions to be irregular but painful at times. On blood work this patient has a blood type O positive, GBS neg Review of Systems Constitutional: Denies chills, Denies fatigue, Denies fever Ears, nose, mouth and throat: Denies headache Cardiovascular: Reports leg edema Respiratory: Denies dyspnea Gastrointestinal: Denies constipation, Denies diarrhea, Denies nausea, Denies vomiting Genitourinary: Reports Past Medical History Past Medical History: Seizure Disorder Additional Past Medical History / Comment(s): ovarian cysts. HX MICRO SEIZURES- LAST ONE OVER A YEAR AGO-(HAS THEM IN HER SLEEP). PASSED OUT END OF AUGUST AND LOSS BLADDER CONTROL History of Any Multi-Drug Resistant Organisms: None Reported Past Surgical History: No Surgical Hx Reported Additional Past Surgical History / Comment(s): COLONOSCOPY/EGD Past Anesthesia/Blood Transfusion Reactions: No Reported Reaction Past Psychological History: ADD/ADHD, Anxiety, Bipolar, Depression Smoking Status: Current every day smoker, Vaper Past Alcohol Use History: None Reported Additional Past Alcohol Use History / Comment(s): no alcohol during Past Drug Use History: None Reported - Past Family History Mother Family Medical History: Cancer, Deep Vein Thrombosis (DVT) Medications and Allergies Home Medications Medication Instructions Recorded Confirmed Type OXcarbazepine 2 tab PO DAILY 02/28/24 04/05/24 History Vit No.179/Iron/Folic 1 tab PO DAILY 02/28/24 04/05/24 History [ Tablet] Allergies Allergy/AdvReac Type Severity Reaction Status Date / Time No Known Allergies Allergy Verified 04/05/24 12:01 Exam Osteopathic Statement: *. No significant issues noted on an osteopathic structu ral exam other than those noted in the History and Physical/Consult. Vital Signs Temp Pulse Resp BP Pulse Ox 04/05/24 13:12 96.0 F L 93 16 108/66 100 Intake and Output 04/05/24 04/05/24 04/05/24 06:59 14:59 22:59 Other: Weight 68.946 kg Targeted physical exam is performed this date General Is well-nourished well- developed female in no acute distress, breathing is nonlabored, heart has a regular rate and rhythm, abdomen is gravid, on cervical exam she is 6+ centimeters 100% effaced and -1 station amniotomy is performed and copious clear fluid is obtained. heart tones noted to be category 1 and she is camron every 5 minutes. Results Result Diagrams: 04/05/24 12:10 Abnormal Lab Results - Last 24 Hours (Table) 04/05/24 Range/Units 12:10 WBC 12.0 H (3.8-10.6) k/uL Neutrophils # 9.0 H (1.3-7.7) k/uL Assessment and Plan (1) 37 or more weeks gestation of Current Visit: Yes Status: Acute Code(s): GDH6788 - SNOMED Code(s): 74960063 (2) Active labor Current Visit: Yes Status: Acute Code(s): JOC9689 - SNOMED Code(s): 517301690 Plan: 23-year-old -1-1-1 at 37-2/7 weeks at 6+ centimeters in the office. Patient was admitted to labor and delivery where amniotomy was performed. Patient did request epidural. Epidural was placed without difficulty by the anesthesia department. Anticipate spontaneous vaginal delivery.
[2024-04-05] MEDS: LACTATED RINGERS 1,000 ML IV SCH (17:23)
[2024-04-05] MEDS: AMPICILLIN 1,000 MG in SODIUM CHLORIDE 0.9% 50 ML IVPB SCH (17:23)
[2024-04-05] MEDS: ACETAMINOPHEN TAB 500 MG TAB PO SCH (17:24)
[2024-04-05] MEDS: IBUPROFEN 800 MG TAB PO SCH (20:16)
[2024-04-05] MEDS: SENNOSIDES-DOCUSATE SODIUM 1 EACH TAB PO SCH (20:16)
[2024-04-06 00:17] VITALS: TEMP 97.9
[2024-04-06] MEDS: PRENATAL VIT-IRON-FOLIC ACID 1 EACH TABLET PO SCH (08:25)
[2024-04-06] MEDS: OXcarbazepine 300 MG TAB PO SCH (08:25)
--- NOTE | 2024-04-06 12:28 | P.DS ---
Providers Date of admission: 04/05/24 11:50 Expected date of discharge: 04/06/24 Attending physician: Constanza Ambrose Primary care physician: Stated None - Discharge Diagnosis(es) (1) 37 or more weeks gestation of Current Visit: Yes Status: Acute (2) Active labor Current Visit: Yes Status: Acute (3) Status post normal vaginal delivery Current Visit: Yes Status: Acute Hospital Course: 23-year-old G3 now P1102 that presented to labor and delivery from the office after advanced cervical dilation was noted with painful contractions. Patient was noted to be 6+ centimeters. Contractions were noted to be irregular but uncomfortable. Full details of this patient please see the dictated history and physical patient had a history of labor and subsequent transfer to [facility] in [place] for labor. First was complicated by PPROM at 34 weeks. Patient was admitted to labor and delivery amniotomy was performed and clear fluid was obtained. Patient did request epidural after amniotomy. Epidural was placed without difficulty by the anesthesia department. Patient progressed to complete began pushing and had a normal spontaneous vaginal delivery of a viable male at 1553, weight of 6 pounds 7 ounces, Apgars of 9 and 9 at 1 and 5 minutes respectively. Patient's course has been uneventful. In this day #1 she is ambulating and voiding without d ifficulty. She is tolerating a regular diet without nausea or vomiting. States her pain is well-controlled. She denies concerns. She would like discharge home at 24 hours of possible. Patient Condition at Discharge: Good Plan - Discharge Summary New Discharge Prescriptions: No Action OXcarbazepine 2 tab PO DAILY Vit No.179/Iron/Folic [ Tablet] 1 tab PO DAILY Discharge Medication List OXcarbazepine 2 tab PO DAILY 02/28/24 [History] Vit No.179/Iron/Folic [ Tablet] 1 tab PO DAILY 02/28/24 [History] Follow up Appointment(s)/Referral(s): Constanza Ambrose DO [Doctor of Osteopathic Medicine] - 6 Weeks Patient Instructions/Handouts: Vaginal Delivery (GEN), Vaginal Delivery (DC) Activity/Diet/Wound Care/Special Instructions: No tub baths or intercourse until 6 weeks . [id number] ibuprofen 600 milligrams or 3 tablets every 6 hours as needed for pain. Patient is to call the office to make a routine visit for 6 weeks, should she have any concerns prior to this visit she is urged to call the office. Discharge Disposition: HOME SELF-CARE
[2024-04-06] MEDS: MEASLES-MUMPS-RUBELLA VACC/PF 12,500 UNIT/0.5 ML VIAL SQ ONE (13:05)
[2024-04-06 16:59] VITALS: BP 115/79; PULSE 75; RESP 15
== END 2024-04-06 17:30 | disposition home or self-care (01) | DRG 560 ==
LOC: 4FBP 11:50
PROVIDERS: ADMIT Obstetrics & Gynecology Obstetrics; ATTEND Obstetrics & Gynecology Obstetrics
PROC: 10907ZC Drainage of Amniotic Fluid, Therapeutic from Products of Conception, Via Natural or Artificial Opening (ICD-10-PCS; principal; 2024-04-05)
PROC: 10E0XZZ Delivery of Products of Conception, External Approach (ICD-10-PCS; principal; 2024-04-05)
PROC: 3E0134Z Introduction of Serum, Toxoid and Vaccine into Subcutaneous Tissue, Percutaneous Approach (ICD-10-PCS; 2024-04-06)
DX: O60.23X0 Term delivery with preterm labor, third trimester, not applicable or unspecified (principal); O99.334 Smoking (tobacco) complicating childbirth; F17.290 Nicotine dependence, other tobacco product, uncomplicated; O99.344 Other mental disorders complicating childbirth; F90.9 Attention-deficit hyperactivity disorder, unspecified type; F31.9 Bipolar disorder, unspecified; F41.9 Anxiety disorder, unspecified; O99.354 Diseases of the nervous system complicating childbirth; G40.909 Epilepsy, unspecified, not intractable, without status epilepticus; Z79.899 Other long term (current) drug therapy; Z23 Encounter for immunization; Z3A.37 37 weeks gestation of pregnancy; Z37.0 Single live birth
CPT/HCPCS: 85025; 86850; 86900; 86901; 90707

== ENCOUNTER 2024-10-13 14:39 | Emergency (ER) | payer OTHER ==
[2024-10-13 14:55] VITALS: RESP 18
--- NOTE | 2024-10-13 15:18 | ED ---
Lower Extremity Injury HPI - General Chief Complaint: Extremity Injury, Lower Stated Complaint: Fall Time Seen by Provider: 10/13/24 15:13 Source: patient, RN notes reviewed Mode of arrival: ambulatory Limitations: no limitations - History of Present Illness Initial Comments: 24-year-old female presenting for left foot pain status post fall. States alvina roximately 1 hour ago she slipped and fell on a toy lying on the stairs and fell down approximately 5 stairs while holding her 6-month-old baby in his car seat. Denies head injury or loss of consciousness. Denies blood thinners. States she is experiencing left foot pain. Admits pain with weightbearing. No other significant injuries. Denies chest pain, shortness of breath, headache, neck pain, vision changes, nausea, vomiting, abdominal pain. - Related Data Home Medications Medication Instructions Recorded Confirmed OXcarbazepine 2 tab PO DAILY 02/28/24 04/05/24 Vit No.179/Iron/Folic 1 tab PO DAILY 02/28/24 04/05/24 [ Tablet] Allergies Allergy/AdvReac Type Severity Reaction Status Date / Time No Known Allergies Allergy Verified 10/13/24 14:55 Review of Systems ROS Statement: Those systems with pertinent positive or pertinent negative responses have been documented in the HPI. ROS Other: All systems not noted in ROS Statement are negative. Past Medical History Past Medical History: Seizure Disorder Additional Past Medical History / Comment(s): ovarian cysts. HX MICRO SEIZURES- LAST ONE OVER A YEAR AGO-(HAS THEM IN HER SLEEP). PASSED OUT END OF AUGUST AND LOSS BLADDER CONTROL History of Any Multi-Drug Resistant Organisms: None Reported Past Surgical History: No Surgical Hx Reported Additional Past Surgical History / Comment(s): COLONOSCOPY/EGD Past Anesthesia/Blood Transfusion Reactions: No Reported Reaction Past Psychological History: ADD/ADHD, Anxiety, Bipolar, Depression Smoking Status: Current every day smoker, Vaper Past Alcohol Use History: Occasional Past Drug Use History: None Reported - Past Family History Mother Family Medical History: Cancer, Deep Vein Thrombosis (DVT) General Exam Limitations: no limitations General appearance: alert, in no apparent distress Head exam: Present: atraumatic, normocephalic, normal inspection Eye exam: Present: normal appearance, PERRL, EOMI. Absent: scleral icterus, conjunctival injection, periorbital swelling ENT exam: Present: normal exam, mucous membranes moist Neck exam: Present: normal inspection. Absent: tenderness, meningismus, lymphadenopathy Respiratory exam: Present: normal lung sounds bilaterally. Absent: respiratory distress, wheezes, rales, rhonchi, stridor Cardiovascular Exam: Present: regular rate, normal rhythm, normal heart sounds. Absent: systolic murmur, diastolic murmur, rubs, gallop, clicks GI/Abdominal exam: Present: soft, normal bowel sounds. Absent: distended, tenderness, guarding, rebound, rigid Left Knee exam: Present: normal inspection, full ROM. Absent: tenderness, swelling Lower Leg exam: Present: normal inspection, full ROM. Absent: tenderness, swelling Ankle exam: Present: normal inspection, full ROM. Absent: tenderness, swelling Foot/Toe exam: Present: normal inspection, full ROM, tenderness (Tenderness along dorsal aspect of left foot with no overlying skin changes). Absent: swelling, abrasion, laceration, deformity, dislocation, erythema Neurovascular tendon exam: Present: no vascular compromise. Absent: pulse deficit, abnormal cap refill, motor deficit, sensory deficit Back exam: Present: normal inspection, full ROM. Absent: tenderness, paraspinal tenderness, vertebral tenderness Neurological exam: Present: alert, oriented X3 Psychiatric exam: Present: normal affect, normal mood Skin exam: Present: warm, dry, intact, normal color. Absent: rash Course Vital Signs 10/13/24 14:53 Temperature 98.0 F Pulse Rate 64 Respiratory 18 Rate Blood Pressure 110/71 O2 Sat by Pulse 99 Oximetry Medical Decision Making - Medical Decision Making Was pt. sent in by a medical professional or institution (, PA, LONG CHAIN DYEING MACHINE OPERATOR, urgent care, hospital, or [facility]...) When possible be specific @ -No Did you speak to anyone other than the patient for history (EMS, parent, family, police, friend...)? What history was obtained from this source @ -No Did you review nursing and triage notes (agree or disagree)? Why? @ -I reviewed and agree with nursing and triage notes Were old charts reviewed (outside hosp., previous admission, EMS record, old EKG, old radiological studies, urgent care reports/EKG's, [facility] records)? Report findings @ -No old charts were reviewed Differential Diagnosis (chest pain, altered mental status, abdominal pain women, abdominal pain men, vaginal bleeding, weakness, fever, dyspnea, syncope, headache, dizziness, GI bleed, back pain, seizure, CVA, palpatations, mental health, musculoskeletal)? @ -Differential Musculoskeletal Muscular strain, contusion, ligament sprain, fracture, arthritis, septic arthritis, bursitis, cellulitis, muscle spasm, nerve compression, DVT, arterial occlusion, herpes zoster, electrolyte abnormality, tumor.... This is not meant to be in all inclusive list EKG interpreted by me (3pts min.). @ -None X-rays interpreted by me (1pt min.). @ -X-ray left foot reveals no acute process CT interpreted by me (1pt min.). @ -None done U/S interpreted by me (1pt. min.). @ -None done What testing was considered but not performed or refused? (CT, X-rays, U/S, labs)? Why? @ -None What meds were considered but not given or refused? Why? @ -None Did you discuss the management of the patient with other professionals (professionals i.e. , PA, LONG CHAIN DYEING MACHINE OPERATOR, lab, RT, psych nurse, social science teacher, optician, teacher, navigating officer, case advocate)? Give summary @ -No Was smoking cessation discussed for >3mins.? @ -No Was critical care preformed (if so, how long)? @ -No Were there social determinants of health that impacted care today? How? (Jose Angel elessness, low income, unemployed, alcoholism, drug addiction, transportation, low edu. Level, literacy, decrease access to med. care, [facility], rehab)? @ -No Was there de-escalation of care discussed even if they declined (Discuss DNR or withdrawal of care, Hospice)? DNR status @ -No What co-morbidities impacted this encounter? (DM, HTN, Smoking, COPD, CAD, Cancer, CVA, ARF, Chemo, Hep., AIDS, mental health diagnosis, sleep apnea, morbid obesity)? @ -None Was patient admitted / discharged? Hospital course, mention meds given and route, prescriptions, significant lab abnormalities, going to OR and other pertinent info. @ -Discharge. 24-year-old female presenting for left foot pain status post fall down approximately 5 steps. No head injury or loss of consciousness. She is able to ambulate. Neurovascularly intact in left lower extremity. X-ray left foot reveals no acute process. Patient can be safely discharged home with appropriate return precautions and supportive care. Case was discussed with my ED attending Dr. Squires Undiagnosed new problem with uncertain prognosis? @ -No Drug Therapy requiring intensive monitoring for toxicity (Heparin, Nitro, Insulin, Cardizem)? @ -No Were any procedures done? @ -No Diagnosis/symptom? @ -Left foot strain Acute, or Chronic, or Acute on Chronic? @ -Acute Uncomplicated (without systemic symptoms) or Complicated (systemic symptoms)? @ -Uncomplicated Side effects of treatment? @ -No Exacerbation, Progression, or Severe Exacerbation? @ -No Poses a threat to life or bodily function? How? (Chest pain, USA, NV, pneumonia, PE, COPD, DKA, ARF, appy, cholecystitis, CVA, Diverticulitis, Homicidal, Suicidal, threat to staff... and all critical care pts) @ -No Disposition Clinical Impression: Strain of left foot Disposition: HOME SELF-CARE Condition: Stable Instructions (If sedation given, give patient instructions): Foot Sprain (ED) Additional Instructions: Apply ice to the affected area. Take Tylenol or ibuprofen as needed for pain. Please return to the Emergency Department if symptoms worsen or any other concerns. Is patient prescribed a controlled substance at d/c from ED?: No Referrals: Kelly Self DO [Primary Care Provider] - 1-2 days Time of Disposition: 16:26
--- NOTE | 2024-10-13 16:10 | XR ---
EXAMINATION TYPE: XR foot complete LT DATE OF EXAM: 10/13/2024 3:39 PM COMPARISON: None. CLINICAL INDICATION: Female, 24 years old with history of left foot injury, pain TECHNIQUE: Frontal, lateral, and oblique images of the left foot are obtained. FINDINGS: There is no acute fracture/dislocation evident in the left foot. The joint spaces in the left foot appear within normal limits. The overlying soft tissue appears unremarkable. IMPRESSION: There is no acute fracture or dislocation in the left foot. [facility], , 10/13/2024 4:07 PM
[2024-10-13 16:39] VITALS: BP 108/74; PULSE 62; TEMP 98
== END 2024-10-13 16:39 | disposition home or self-care (01) ==
LOC: EC 14:39
DX: S96.912A Strain of unspecified muscle and tendon at ankle and foot level, left foot, initial encounter (principal); F17.290 Nicotine dependence, other tobacco product, uncomplicated; W10.9XXA Fall (on) (from) unspecified stairs and steps, initial encounter; W22.8XXA Striking against or struck by other objects, initial encounter
CPT/HCPCS: 99283